=== PATIENT | male | born 1975 | race Caucasian/White ===

== ENCOUNTER 2020-06-25 11:19 | Inpatient (IN) | payer SELFPAY ==
[~2020-06-25 11:19] MED LIST: Amlodipine 10 MG TAB PO SCH
[2020-06-25 12:41] LABS: #Basophils 0.1 thou/uL (0.0-0.2); #Eosinphils 0.2 thou/uL (0.0-0.7); #Lymphocytes 1.2 thou/uL (1.20-3.40); #Monocytes 0.4 thou/uL (0.11-0.59); #Neutrophils 4.6 thou/uL (1.40-6.50); %Basophils 0.9 % (0.0-1.0); %Eosinophils 2.6 % (0.0-10.0); %Lymphocytes 18.1 % (21.0-51.0); %Monocytes 6.7 % (0.0-10.0); %Neutrophils 71.8 % (42.0-75.0); Mean Corpuscular HGB CONC 35.6 g/dL (32.0-36.0); Mean Corpuscular Hemoglobin 31.4 pg (27.0-31.0); Mean Corpuscular Volume 88.2 fL (78.0-98.0); Mean Platelet Volume 6.4 fL (7.4-10.4); Platelet Count 235 thou/uL (130-400); RBC Distribution Width 12.2 % (11.5-14.5); Red Blood Cell (RBC) Count 3.52 mill/uL (4.70-6.10); White Blood Cell (WBC) Count 6.4 thou/uL (4.8-10.8)
--- NOTE | 2020-06-25 12:47 | RAD ---
Exam: Chest one view HISTORY:Fall. Seizure. Comparison: 08/12/2015 FINDINGS: Cardiac silhouette: Normal Aorta: Unremarkable Pulmonary vessels: Normal Costophrenic angles: Clear LUNGS: No masses or consolidation. Pneumothorax: None Osseous abnormalities: None IMPRESSION: No acute cardiopulmonary process.
[2020-06-25 13:00] LABS: ALT (SGPT) 36 U/L (8-55); AST (SGOT) 30 U/L (5-34); Albumin 2.7 g/dL (3.5-5.0); Alkaline Phosphatase 198 U/L (40-110); Anion Gap 14 mmol/L (10-20); BUN (Urea Nitrogen) 31 mg/dL (8.9-20.6); Bilirubin, Total 0.6 mg/dL (0.2-1.2); CK (CPK) 32 U/L (30-200); Calc. Creatinine Clearance 0 mL/min (70-130); Calcium 8.2 mg/dL (7.8-10.44); Carbon Dioxide 26 mmol/L (22-29); Chloride 91 mmol/L (98-107); Globulin 3.6 g/dL (2.4-3.5); Protein, Total 6.3 g/dL (6.0-8.3); Sodium 126 mmol/L (136-145)
[2020-06-25 13:07] LABS: Glucose 680 mg/dL (70-105)
[2020-06-25] MEDS ORDERED: Insulin Regular 300 UNITS/3 ML VIAL ONE (13:16)
[2020-06-25 13:17] LABS: Acetaminophen Less than 6.0 mcg/mL (10.0-30.0); Alcohol Less than 10 mg/dL (Less than 10); Salicylate Less than 8.0 mg/dL (15.0-30.0)
--- NOTE | 2020-06-25 13:33 | CT ---
Exam: Head CT without contrast HISTORY: Head injury. Patient is on blood thinners. COMPARISON: 08/12/2015 FINDINGS: Hemorrhage: Linear hyperdensities along the right insular cortex may represent small petechial hemorr hages versus there is a calcification. These findings were not present on the examinations from 2016. Brain parenchyma: Cortical marino-white matter differentiation is preserved. No mass effect or midline shift. Basilar cisterns are patent. Ventricular system: Asymmetric dilatation of the right temporal horn with respect to the contralatera l side. Calvarium: Postoperative changes in the right calvarium. Sinuses and mastoid air cells: Adequate aeration. IMPRESSION: 1. Linear densities in the right insular cortex which may represent petechial hemorrhages versus area s of calcification. Short-term follow-up CT in 6 hours is recommended. 2. Asymmetric prominence of the right temporal horn of the ventricular system, uncertain significance . Results study discussed with Daxa Yao 06/25/2020 at 1:30 PM Code CR
[2020-06-25] MEDS ORDERED: Metoclopramide HCl 10 MG TAB ONE (13:43)
[2020-06-25] MEDS ORDERED: Acetaminophen 500 MG TAB ONE (13:43)
[2020-06-25 13:56] LABS: Bacteria/HPF None Seen HPF (None Seen); Bilirubin Negative (Negative); Blood, Urine Trace (Negative); Clarity Clear (Clear); Glucose, Urine (Dipstick) Greater than 1000 mg/dL (Negative); Ketone, Urine Negative (Negative); Leukocyte Negative Leu/uL (Negative); Nitrite Negative (Negative); Protein, Urine (Dipstick) 200 mg/dL (Neg-Trace); RBC/HPF 0-3 HPF (0-3); Specific Gravity, Urine 1.026 (1.002-1.036); Squamous Epithelial 0-3 HPF (0-3); Urobilinogen Normal mg/dL (Less than 2); WBC/HPF 0-3 HPF (0-3)
[2020-06-25 14:04] LABS: Amphetamine Not Detected (NotDetected); Barbiturates Screen Not Detected (NotDetected); Benzodiazepine Screen Not Detected (NotDetected); Cocaine Metabolite Screen Not Detected (NotDetected); Medtox Control Line Valid? VALID (VALID); Medtox Reader # READER 4; Methadone Not Detected (NotDetected); Methamphetamine Not Detected (NotDetected); Opiate Screen Not Detected (NotDetected); Oxycodone Screen Not Detected (NotDetected); Phencyclidine (PCP) Not Detected (NotDetected); THC/Cannabinoid Screen Not Detected (NotDetected); Tricyclic Screen Not Detected (NotDetected)
--- NOTE | 2020-06-25 20:06 | CT ---
CT OF BRAIN PERFORMED WITHOUT CONTRAST ENHANCEMENT: 06/25/20 HISTORY: Head injury. Patient on blood thinners. Previous CT showed some questionable petechial hemorrhage in the right insular cortex. COMPARISON: Earlier exam of the same day. Ventricular and cisternal system is within normal limits. The changes in the insular cortex along the right Sylvian fissure are similar to the previous exam. There is also some asymmetry to the right te mporal horn slightly larger than the left and what appears to be more prominent choroid plexus on the right side. This is also a stable finding. The mastoid air cells and visualized sinuses are clear. IMPRESSION: Stable areas of increased attenuation in the right insular cortex along the right Sylvian fissure. Th is could represent fine petechial hemorrhage or calcification, still indeterminate. Slight dilatation of the right temporal horn and what appears to be more prominent choroid plexus on the right is agai n demonstrated. It is possible that this represents some blood products. Right sided craniotomy monk ges are noted. Changes could be the sequela of the previous surgery. It would probably be helpful to obtain an additional follow-up examination. An MRI might also be a consideration which may be helpful in better assessment. POS: AALIYAH
[2020-06-25] MEDS ORDERED: Senokot S 8.6-50 MG TAB PO PRN (21:25)
[2020-06-25] MEDS ORDERED: Dextrose 50% Abboject 50 ML SYRINGE SLOW IVP PRN (21:33)
[2020-06-25] MEDS ORDERED: Dextrose 5% in Water 1,000 ML IV PRN (21:33)
[2020-06-25] MEDS ORDERED: Amlodipine 5 MG TAB ONE (21:37)
--- NOTE | 2020-06-25 21:39 | PDOC.HHP ---
Hospitalist HPI - History of Present Illness Headache, falls History of Present Illness: 45-year-old gentleman with a history of seizure disorder, recent diagnosis of subarachnoid hemorrhage status post craniotomy done at [facility] presents to the emergency department with multiple complaints including headaches, and multiple falls over the last couple of days. Patient reports history of hypertension. He was prescribed amlodipine and Coreg for hypertension, Keppra for seizure disorder and Novolin 70/30 for diabetes on discharge from his last admission in March 2020. Patient has not been able to fill them stating he does not have medical insurance and could not afford them. Patient's blood sugar was up to 600 in the ED. blood sugar improved to 300s after a dose of subcutaneous insulin. Multiple CT head done in the ED report increased attenuation in the right insular cortex which could be streaks of hemorrhage or calcification or sequela from his craniotomy. Follow-up MRI of the brain is recommended. Neurosurgery was contacted in the ED recommended hospitalization for follow-up MRI and for monitoring. His systolic blood pressure was fluctuating in the ED from 140-180. He denied any focal weakness or visual changes or problems with speech or swallow. He denied hitting his head during the falls he had 2 days ago. He stated his last seizure episode was more than a week ago. Hospitalist ROS - Review of Systems Other: Except as documented, all other systems reviewed and negative. Hospitalist History - Past Medical History Cardiac: reports: HTN [employer]: reports: CVA, Other (Subarachnoid hemorrhage) Endocrine: reports: Diabetes Other Medical History: Hepatitis C Migraine. - Past Surgical History Other Surgical History: Craniotomy - Family History Family History: reports: diabetes mellitus - Social History Smoking Status: Former smoker Alcohol: reports: None Drugs: reports: none, Other (Former drug user) - Exam General Appearance: NAD, awake alert Eye: PERRL, anicteric sclera ENT: normocephalic atraumatic, no oropharyngeal lesions Neck: supple, symmetric, no JVD Heart: RRR, normal peripheral pulses Respiratory: CTAB, no wheezes, no rales Gastrointestinal: soft, non-tender, non-distended Extremities: no cyanosis, no edema Skin: normal turgor Neurological: cranial nerve grossly intact, no focal deficits Musculoskeletal: normal tone, normal strength Psychiatric: normal affect, normal behavior, A&O x 3 Hospitalist Results - Labs Result Diagrams: 06/25/20 12:26 06/25/20 12:26 Lab results: WBC 6.4 thou/uL (4.8-10.8) 06/25/20 12:26 Hgb 11.0 g/dL (14.0-18.0) L 06/25/20 12:26 Hct 31.0 % (42.0-52.0) L 06/25/20 12:26 MCV 88.2 fL (78.0-98.0) 06/25/20 12:26 Plt Count 235 thou/uL (130-400) 06/25/20 12:26 Neutrophils % 71.8 % (42.0-75.0) 06/25/20 12:26 Sodium 126 mmol/L (136-145) L 06/25/20 12:26 Potassium 5.0 mmol/L (3.5-5.1) 06/25/20 12:26 Chloride 91 mmol/L (98-107) L 06/25/20 12:26 Carbon Dioxide 26 mmol/L (22-29) 06/25/20 12:26 BUN 31 mg/dL (8.9-20.6) H 06/25/20 12:26 Creatinine 1.48 mg/dL (0.7-1.3) H 06/25/20 12:26 Glucose 680 mg/dL (70-105) H* 06/25/20 12:26 Calcium 8.2 mg/dL (7.8-10.44) 06/25/20 12:26 Total Bilirubin 0.6 mg/dL (0.2-1.2) 06/25/20 12:26 AST 30 U/L (5-34) 06/25/20 12:26 ALT 36 U/L (8-55) 06/25/20 12:26 Alkaline Phosphatase 198 U/L (40-110) H 06/25/20 12:26 Creatine Kinase 32 U/L (30-200) 06/25/20 12:26 Troponin I 0.027 ng/mL (< 0.028) 06/25/20 12:26 Serum Total Protein 6.3 g/dL (6.0-8.3) 06/25/20 12:26 Albumin 2.7 g/dL (3.5-5.0) L 06/25/20 12:26 Urine Ketones Negative mg/dL (Negative) 06/25/20 13:30 Urine Blood Trace (Negative) A 06/25/20 13:30 Urine Nitrite Negative (Negative) 06/25/20 13:30 Ur Leukocyte Esterase Negative Patrick/uL (Negative) 06/25/20 13:30 Urine RBC 0-3 HPF (0-3) 06/25/20 13:30 Urine WBC 0-3 HPF (0-3) 06/25/20 13:30 Ur Squamous Epith Cells 0-3 HPF (0-3) 06/25/20 13:30 Urine Bacteria None Seen HPF (None Seen) 06/25/20 13:30 Hospitalist H&P A/P - Problem (1) Malignant hypertension Code(s): I10 - ESSENTIAL (PRIMARY) HYPERTENSION Status: Acute (2) Intracranial hemorrhage Code(s): I62.9 - NONTRAUMATIC INTRACRANIAL HEMORRHAGE, UNSPECIFIED Status: Acute (3) Controlled type 2 diabetes mellitus with hyperglycemia Code(s): E11.65 - TYPE 2 DIABETES MELLITUS WITH HYPERGLYCEMIA Status: Acute (4) Seizure disorder Code(s): G40.909 - EPILEPSY, UNSP, NOT INTRACTABLE, WITHOUT STATUS EPILEPTICUS Status: Acute (5) History of subarachnoid hemorrhage Code(s): Z86.79 - PERSONAL HISTORY OF OTHER DISEASES OF THE CIRCULATORY SYSTEM Status: Acute (6) Multiple falls Code(s): R29.6 - REPEATED FALLS Status: Acute - Plan Plan: Admit to stroke unit. Neurochecks every 4 hours We will resume amlodipine tonight to control his blood pressure. Target systolic blood pressure of less than 140 and diastolic less than 110. MRI of the brain without contrast ordered to be done in a.m.. Manage blood sugar with home insulin regimen-Novolin 70/30 and insulin sliding scale. Start Keppra 500 mg twice daily. Consult to neurosurgery.
[2020-06-25] MEDS ORDERED: levETIRAcetam 500 MG TAB PO SCH (22:00)
[2020-06-26 00:35] VITALS: BMI 25.4
[2020-06-26] MEDS: Sodium Chloride 0.9% 1,000 ML IV SCH ×2 (01:13→12:51)
[2020-06-26] MEDS: Insulin Regular 300 UNITS/3 ML VIAL SC PRN ×5 (01:56→17:28)
[2020-06-26] MEDS: Acetaminophen 325 MG TAB PO PRN ×2 (01:57→09:43)
[2020-06-26] MEDS ORDERED: hydrALAZINE 20 MG/ML VIAL SLOW IVP PRN (05:17)
[2020-06-26] MEDS ORDERED: Amlodipine 10 MG TAB PO SCH (05:19)
[2020-06-26 05:50] LABS: SARS-CoV-2 MS2 Positive; SARS-CoV-2 N Gene Negative; SARS-CoV-2 S Gene Negative; SARS-CoV-2 by NAA Not Detected (NotDetected); SARS-CoV-2 orf1ab Negative
[2020-06-26 06:56] LABS: #Eosinphils 0.2 thou/uL (0.0-0.7); #Monocytes 0.5 thou/uL (0.11-0.59); #Neutrophils 4.1 thou/uL (1.40-6.50); %Basophils 0.6 % (0.0-1.0); %Eosinophils 3.5 % (0.0-10.0); %Lymphocytes 28.8 % (21.0-51.0); %Monocytes 7.4 % (0.0-10.0); %Neutrophils 59.8 % (42.0-75.0); Hemoglobin 10.2 g/dL (14.0-18.0); Mean Corpuscular Volume 86.1 fL (78.0-98.0); Platelet Count 262 thou/uL (130-400); RBC Distribution Width 12.1 % (11.5-14.5); Red Blood Cell (RBC) Count 3.29 mill/uL (4.70-6.10); White Blood Cell (WBC) Count 6.9 thou/uL (4.8-10.8)
[2020-06-26 07:06] LABS: Anion Gap 11 mmol/L (10-20); BUN (Urea Nitrogen) 27 mg/dL (8.9-20.6); Calc. Creatinine Clearance 97 mL/min (70-130); Calcium 8.1 mg/dL (7.8-10.44); Carbon Dioxide 26 mmol/L (22-29); Chloride 98 mmol/L (98-107); Glucose 319 mg/dL (70-105); Potassium 3.9 mmol/L (3.5-5.1); Sodium 131 mmol/L (136-145)
[2020-06-26] MEDS ORDERED: FLU VACC QS2020-21(6MOS UP)/PF 60 MCG/0.5 ML SYRINGE IM ONE (09:00)
[2020-06-26] MEDS: Metoprolol Tartrate 25 MG TAB PO SCH ×2 (09:43→21:33)
[2020-06-26] MEDS: levETIRAcetam 500 MG TAB PO SCH ×2 (09:43→21:33)
[2020-06-26] MEDS: Famotidine/PF 20 mg/2ml Vial SLOW IVP SCH ×2 (09:43→21:33)
--- NOTE | 2020-06-26 10:16 | CON ---
DATE OF CONSULTATION: 06/26/2020 HISTORY OF PRESENT ILLNESS: The patient is a 45-year-old male with a past medical history of diabetes, hypertension, prior traumatic subdural hematoma requiring craniotomy with evacuation in February of 2020, seizure disorder, who presents to the [place] last night for complaint of worsening headaches, frequent falls, as well as increased seizure activity over the last few days. The patient reports that he developed some increased instability and falling as well as some claudicatory leg pain approximately one year ago. He reports he has suffered multiple falls throughout the year. In February of 2020, he suffered a fall versus seizure event and was reportedly brought to [facility], where he was evaluated for acute subdural hematoma, which required evacuation with a right-sided craniotomy. The patient reports after this event, he was discharged home. Approximately a month later, he was readmitted with what sounds to be a traumatic subarachnoid hemorrhage at that time. He has followed up with his neurosurgeon in [place] to have his nory removed, but not had any additional followup visits. Additionally, he has not had any of his medications filled since March because he reports he cannot afford them. This includes he has not been taking his seizure medication, Keppra. The patient came to the ER last night for complaints of some increased headaches, seizure-like activity as well as increased falling. He was evaluated with a noncontrast CT head, which shows some hyperdensities along the right insular cortex, which could represent petechial hemorrhage versus calcification versus sequelae from his previous craniotomy. This was stable on a followup 6-hour CT. However, MRI was recommended for additional characterization. I visited the patient at the bedside. He reports his headaches have improved, but his main complaint at this time is some cramping sensation in both of his legs as well as some weakness in his legs. PAST MEDICAL HISTORY: Hypertension, diabetes, seizure, prior subdural hematoma requiring evacuation with a right-sided craniotomy, hepatitis C. PAST SURGICAL HISTORY: Right-sided craniotomy for subdural hematoma evacuation. FAMILY HISTORY: Noncontributory. SOCIAL HISTORY: The patient is currently homeless at this time. He reports he is a former drug user. REVIEW OF SYSTEMS: Per HPI. PHYSICAL EXAMINATION: VITAL SIGNS: Stable, afebrile. HEENT: Head, normocephalic and atraumatic. There is a scar formation along the right scalp consistent with right-sided craniotomy. Eyes, PERRLA. Extraocular movements intact. ENT; pink, intact, and moist. He has normal voice. NECK: Nontender. Free active range of motion. No meningismus or nuchal rigidity. CARDIAC: Regular rate and rhythm. PULMONARY: Symmetric chest expansion. No evidence of dyspnea. MUSCULOSKELETAL: He has free active range of motion of the upper extremities. No focal motor weakness. No reflex asymmetry. In the lower extremities, he has some diffuse weakness in the legs, particularly proximally. He has difficulty lifting them for very long up the bed. 3+/4 throughout hyperreflexive. NEUROLOGIC: A and O x4. Some weakness in the lower extremities on my exam in the bed as noted above. ASSESSMENT AND PLAN: This is a complicated case and the patient is a very poor historian with history of right-sided craniotomy for acute subdural hematoma and possible traumatic subarachnoid hemorrhage approximately a month later. He has been noncompliant with his medications. CT head shows some hyperdensity along the right insular cortex, which could represent acute petechial hemorrhage versus calcification versus sequelae from prior craniotomy. We will get MRI of the brain to further characterize. Also, the patient has had significant instability and some claudicatory leg pain over the last year, this is likely contributing to his recent falls, and we will evaluate further with MRI of the cervical and lumbar spine. I have discussed this plan with Dr. Rodgers, who is in agreement. We will follow along after his imaging. MRI imaging will require anesthesia due to the patient's severe claustrophobia. Job ID: [id number]
[2020-06-26] MEDS: HumuLIN 70/30 (300 UNITS/3 ML VIAL) SC SCH ×3 (10:44→17:05)
--- NOTE | 2020-06-26 13:20 | PDOC.HOSPP ---
- Subjective Encounter Date: 06/26/20 Encounter Time: 11:00 Subjective: awake, follows verbal stimuli, is moving all extremities no seizures, has no trouble swallowing - Objective Vital Signs & Weight: Vital Signs (12 hours) Temp Pulse Pulse Pulse Resp BP BP 06/26/20 11:32 98.1 F 63 19 06/26/20 11:05 63 70 124/76 141/75 H 06/26/20 07:45 97.8 F 79 16 06/26/20 04:08 98.7 F 79 15 BP Pulse Ox 06/26/20 11:32 124/76 100 06/26/20 11:05 06/26/20 07:45 142/76 H 97 06/26/20 04:08 151/85 H 97 Weight Weight 188 lb I&O: 06/25/20 06/26/20 06/27/20 06:59 06:59 06:59 Intake Total 1557 112 Output Total 1200 450 Balance 357 -338 Result Diagrams: 06/26/20 06:33 06/26/20 06:33 Additional Labs: Accuchecks 06/26/20 06/25/20 05:53 19:43 POC Glucose 321 H 369 H Hospitalist ROS - Medication Medications: Active Medications Generic Name Dose Route Start Last Admin Trade Name Freq PRN Reason Stop Dose Admin Acetaminophen 650 mg 06/25/20 21:25 06/26/20 09:43 Acetaminophen 325 Mg Tab PO 650 mg Q4H PRN Administration Headache/Fever/Mild Pain (1-3) Famotidine 20 mg 06/26/20 09:00 06/26/20 09:43 Famotidine/Pf 20 Mg/2ml Vial SLOW IVP 20 mg Q12HR SOFYA Administration Sodium Chloride 1,000 mls @ 75 mls/hr 06/25/20 21:30 06/26/20 12:51 Normal Saline 0.9% IV 1,000 mls .[id number] SOFYA Administration Insulin Human Isoph/Insulin Regular 30 units 06/26/20 07:30 06/26/20 10:45 Humulin 70/30 (300 Units/3 Ml Vial) SC 30 unit AC SOFYA Administration Insulin Human Regular 0 units 06/25/20 21:33 06/26/20 12:50 Insulin Regular 300 Units/3 Ml Vial SC 6 unit .MODERATE SLIDING SC PRN Administration Moderate Correctional Scale Levetiracetam 500 mg 06/26/20 09:00 06/26/20 09:43 Levetiracetam 500 Mg Tab PO 500 mg BID SOFYA Administration Metoprolol Tartrate 25 mg 06/26/20 09:00 06/26/20 09:43 Metoprolol Tartrate 25 Mg Tab PO 25 mg BID SOFYA Administration - Exam General Appearance: awake alert Eye: PERRL, anicteric sclera ENT: no oropharyngeal lesions, moist mucosa Neck: supple, no JVD Heart: RRR, no murmur Respiratory: no wheezes, no rales Gastrointestinal: soft, non-tender, non-distended, normal bowel sounds Extremities: no cyanosis, no edema Neurological: cranial nerve grossly intact, no focal deficits Hosp A/P (1) Intracranial hemorrhage Code(s): I62.9 - NONTRAUMATIC INTRACRANIAL HEMORRHAGE, UNSPECIFIED Status: Acute (2) DM type 2 (diabetes mellitus, type 2) Status: Chronic Qualifiers: Diabetes mellitus senior care insulin use: without senior care use Diabetes mellitus complication status: with hyperglycemia Qualified Code(s): E11.65 - Type 2 diabetes mellitus with hyperglycemia (3) Hypertension, uncontrolled Code(s): I10 - ESSENTIAL (PRIMARY) HYPERTENSION Status: Acute (4) History of subarachnoid hemorrhage Code(s): Z86.79 - PERSONAL HISTORY OF OTHER DISEASES OF THE CIRCULATORY SYSTEM Status: Chronic (5) Multiple falls Code(s): R29.6 - REPEATED FALLS Status: Acute (6) Seizure disorder Code(s): G40.909 - EPILEPSY, UNSP, NOT INTRACTABLE, WITHOUT STATUS EPILEPTICUS Status: Chronic - Plan h/o sub arachnoid bleed/craniectomy in feb 2020 at [facility] in [place], subsequently had another cva like episode in march per patient was abusing meth for around 6 yrs and quit a year back per patient was not using any meds for dm or htn due to financial reasons has petechial spots/calcifications in the right insular cortex, await nsx opinion has b/l lower extremity strength of 3-4/5 with patient lifting his legs to about 30 degrees above bed (says he feels weak to lift beyond that) left is more weaker than right? continue current meds including 70/30 insulin, keppra, norvasc, lopressor, will titrate in am if needed for MRI with anesthesia due to severe claustrophobia. PT/OT eval, may need rehab or swing bed
[2020-06-26] MEDS: Ondansetron PF 4 MG/2 ML Vial IVP PRN (14:33)
[2020-06-26] MEDS ORDERED: HumuLIN 70/30 (300 UNITS/3 ML VIAL) SC SCH (17:15)
[2020-06-26] MEDS: Amlodipine 10 MG TAB PO SCH (21:33)
[2020-06-27] MEDS: Acetaminophen 325 MG TAB PO PRN ×2 (00:59→09:02)
[2020-06-27] MEDS: Sodium Chloride 0.9% 1,000 ML IV SCH ×3 (04:35→20:36)
[2020-06-27] MEDS: Insulin Regular 300 UNITS/3 ML VIAL SC PRN ×3 (06:05→17:37)
[2020-06-27] MEDS ORDERED: Sodium Chloride 0.9% 10 ML ONE (08:50)
[2020-06-27] MEDS: Metoprolol Tartrate 25 MG TAB PO SCH ×2 (09:02→20:37)
[2020-06-27] MEDS: Ondansetron PF 4 MG/2 ML Vial IVP PRN (09:03)
[2020-06-27] MEDS: Famotidine/PF 20 mg/2ml Vial SLOW IVP SCH ×2 (09:03→20:37)
[2020-06-27] MEDS: HumuLIN 70/30 (300 UNITS/3 ML VIAL) SC SCH ×2 (09:03→20:40)
[2020-06-27] MEDS: levETIRAcetam 500 MG TAB PO SCH ×2 (09:10→20:37)
--- NOTE | 2020-06-27 10:44 | MRI ---
Exam: Brain MRI without contrast HISTORY: Persistent hyperdensities noted on recent CT. Evaluate for intracranial hemorrhage. COMPARISON: None Correlation: Head CT 06/25/2018 FINDINGS: Calvarial marrow signal intensity: Appropriate T1 signal Gradient echo sequence: There is hypointensity involving the right temporal lobe as well as the right insular cortex. These hypodensities likely represent hemosiderin from previous insult. There is delayed blooming suggesting possible small cavernous hemangiomas. Brain parenchyma: Multiple foci of encephalomalacia and gliosis involving the right temporal lobe. Re mainder the cerebrum demonstrates preservation of cortical marino-white white matter differentiation. Cortical marino-white matter differentiation: Preserved with exception of the right temporal lobe. Restricted diffusion: Central arterial flow voids are maintained. Absent restricted diffusion White matter signal intensities:Minimal scattered T2 and FLAIR white matter hyperintensities in the r ight temporal lobe likely due to areas of gliosis. Sinuses: Adequate aeration of the paranasal sinuses and mastoid air cells. IMPRESSION: 1. Multifocal encephalomalacia and gliosis right temporal lobe. 2. 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 No acute intraparenchymal hemorrhage.
[2020-06-27] MEDS ORDERED: PROPOFOL 200 MG/20 ML VIAL ONE (11:31)
[2020-06-27] MEDS ORDERED: ePHEDrine 50 MG/ML VIAL ONE (11:31)
[2020-06-27] MEDS ORDERED: Lidocaine 1% PF 5 ML VIAL ONE (11:31)
[2020-06-27] MEDS ORDERED: Dexamethasone 20 MG/5 ML VIAL ONE (11:31)
[2020-06-27] MEDS ORDERED: Ondansetron PF 4 MG/2 ML Vial ONE (11:31)
--- NOTE | 2020-06-27 11:32 | MRI ---
MRI CERVICAL SPINE WITHOUT CONTRAST: INDICATION: Headaches. Frequent falling. FINDINGS: The cervical vertebrae maintain normal height and alignment. The disk spaces are normally maintained . Vertebral body signal is normal. No significant disk bulge or disk protrusion seen at any of the cervical levels. Very mild spondylos is is seen posteriorly at C5-6. Anterior subarachnoid space is preserved throughout the cervical can al. There is no evidence of central canal or foraminal stenosis. Review of the cervical spinal cord shows a small focus of high T2 signal within the central portion o f the cord at the C7-T1 level. This is only seen on the axial T2 sequence. It may represent a tiny focal syrinx or hydromyelia, although it is indeterminate on this single axial sequence. Recommend p atient return for post contrast MRI of cervical spine to rule out an intrinsic cord lesion at this si te. IMPRESSION: 1. A small focus of high T2 signal in the central cord seen at the C7-T1 disk level, only appreciate d in the T2 axial sequence. Recommend patient have post contrast MRI of cervical spine to rule out a n intrinsic cord lesion. 2. MRI cervical spine otherwise unremarkable with no significant disk bulge, disk protrusion, or spo ndylosis identified. POS: JASIEL
--- NOTE | 2020-06-27 12:26 | MRI ---
MRI LUMBAR SPINE WITHOUT CONTRAST: Date: 06/27/2020 INDICATION: Claudication. Back pain. Frequent falls. FINDINGS: There is mild wedging of the T12 vertebra. Anterior osteophytes at T11-T12 and T12-L1. There is no ed donovan within this vertebral body. The lumbar vertebra maintain normal height and alignment and the lumbar disc spaces are normally main tained. Lumbar vertebral bodies exhibit normal signal. T11-T12: There is a broad based disc bulge which abuts the conus and effaces the anterior subarachnoi d space. No foraminal stenosis. T12-L1: No significant disc bulge. No central canal or foraminal stenosis. No significant disc bulge at L1-2, L2-3, or L3-4 levels. Mild facet hypertrophy at these levels; goddard hair, no central canal or foraminal stenosis. L4-5: Mild disc bulge abuts the thecal sac. Mild facet hypertrophy. No central canal or foraminal st enosis. L5-S1> No evidence of disc bulge. Mild facet hypertrophy. No central canal or foraminal stenosis. IMPRESSION: 1. Mild anterior wedging at T12 with anterior osteophytes. Broad based bulge at T11-T12 abuts and mi ldly compresses the conus. 2. No significant disc bulge or protrusion at any of the lumbar levels. There is mild facet hypertro phy throughout; however, no central canal or foraminal stenosis. POS: AGW
--- NOTE | 2020-06-27 14:14 | PDOC.HOSPP ---
- Subjective Encounter Date: 06/27/20 Encounter Time: 11:00 Subjective: had all his mri this am with anesthesia help is moving all extremities, has amb around 400ft no seizures, feels good, no headache or specific weakness now - Objective Vital Signs & Weight: Vital Signs (12 hours) Temp Pulse Resp BP BP Pulse Ox 06/27/20 11:43 96.8 F L 73 20 130/78 99 06/27/20 11:00 97.3 F L 72 20 131/71 100 06/27/20 08:02 97.8 F 77 20 140/77 100 06/27/20 08:00 99 06/27/20 04:00 97.8 F 73 14 124/70 97 Weight Admit Weight 188 lb Weight 188 lb I&O: 06/26/20 06/27/20 06/28/20 06:59 06:59 06:59 Intake Total 1557 1357 Output Total 1200 2100 Balance 357 -563 Result Diagrams: 06/26/20 06:33 06/26/20 06:33 Additional Labs: Accuchecks 06/27/20 06/27/20 06/26/20 12:04 05:30 21:42 POC Glucose 197 H 214 H 134 H 06/26/20 06/26/20 06/26/20 16:51 10:48 03:18 POC Glucose 155 H 291 H 507 H 06/26/20 06/26/20 01:16 01:14 POC Glucose 529 H 508 H Hospitalist ROS - Medication Medications: Active Medications Generic Name Dose Route Start Last Admin Trade Name Freq PRN Reason Stop Dose Admin Acetaminophen 650 mg 06/25/20 21:25 06/27/20 09:02 Acetaminophen 325 Mg Tab PO 650 mg Q4H PRN Administration Headache/Fever/Mild Pain (1-3) Amlodipine Besylate 10 mg 06/26/20 21:00 06/26/20 21:33 Amlodipine 10 Mg Tab PO 10 mg 2100 SOFYA Administration Famotidine 20 mg 06/26/20 09:00 06/27/20 09:03 Famotidine/Pf 20 Mg/2ml Vial SLOW IVP 20 mg Q12HR SOFYA Administration Sodium Chloride 1,000 mls @ 75 mls/hr 06/25/20 21:30 06/27/20 04:35 Normal Saline 0.9% IV 1,000 mls .[id number] SOFYA Administration Insulin Human Isoph/Insulin Regular 15 units 06/27/20 09:00 06/27/20 09:03 Humulin 70/30 (300 Units/3 Ml Vial) SC Not Given BID SOFYA Insulin Human Regular 0 units 06/25/20 21:33 06/27/20 12:42 Insulin Regular 300 Units/3 Ml Vial SC 2 unit .MODERATE SLIDING SC PRN Administration Moderate Correctional Scale Levetiracetam 500 mg 06/26/20 09:00 06/27/20 09:10 Levetiracetam 500 Mg Tab PO 500 mg BID SOFYA Administration Metoprolol Tartrate 25 mg 06/26/20 09:00 06/27/20 09:02 Metoprolol Tartrate 25 Mg Tab PO 25 mg BID SOFYA Administration Ondansetron HCl 4 mg 06/25/20 21:25 06/27/20 09:03 Ondansetron Pf 4 Mg/2 Ml Vial IVP 4 mg Q6H PRN Administration Nausea/Vomiting - Exam General Appearance: awake alert Eye: PERRL, anicteric sclera ENT: no oropharyngeal lesions, moist mucosa Neck: supple, no JVD Heart: RRR, no murmur Respiratory: no wheezes, no rales Gastrointestinal: soft, non-tender, non-distended, normal bowel sounds Extremities: no cyanosis, no edema Neurological: cranial nerve grossly intact, no focal deficits Psychiatric: normal affect, A&O x 3 Hosp A/P (1) Intracranial hemorrhage Code(s): I62.9 - NONTRAUMATIC INTRACRANIAL HEMORRHAGE, UNSPECIFIED Status: Ruled-out (2) DM type 2 (diabetes mellitus, type 2) Status: Chronic Qualifiers: Diabetes mellitus senior care insulin use: without ecommerce marketing manager use Diabetes mellitus complication status: with hyperglycemia Qualified Code(s): E11.65 - Type 2 diabetes mellitus with hyperglycemia (3) Hypertension, uncontrolled Code(s): I10 - ESSENTIAL (PRIMARY) HYPERTENSION Status: Acute (4) History of subarachnoid hemorrhage Code(s): Z86.79 - PERSONAL HISTORY OF OTHER DISEASES OF THE CIRCULATORY SYSTEM Status: Chronic (5) Multiple falls Code(s): R29.6 - REPEATED FALLS Status: Acute (6) Seizure disorder Code(s): G40.909 - EPILEPSY, UNSP, NOT INTRACTABLE, WITHOUT STATUS EPILEPTICUS Status: Chronic - Plan h/o sub arachnoid bleed/craniectomy in feb 2020 at [facility] in [place], subsequently had another cva like episode in march per patient was abusing meth for around 6 yrs and quit a year back per patient was not using any meds for dm or htn due to financial reasons has petechial spots/calcifications in the right insular cortex, MRI brain does not show bleed or ac cva, await nsx opinion has ambulated nearly [address] continue current meds including 70/30 insulin, keppra, norvasc, lopressor, will titrate in am if needed PT/OT eval, may need rehab or swing bed dc plan per nsx advice
--- NOTE | 2020-06-27 15:11 | CON ---
NEUROLOGY CONSULTATION DATE OF CONSULTATION: 06/27/2020 REASON FOR CONSULTATION: Headaches, falls/seizures. HISTORY OF PRESENT ILLNESS: Mr. Destin Noyola is a 45-year-old male with history significant for recent diagnosis of subarachnoid hemorrhage, status post craniotomy in March 2020 and was also diagnosed with seizure disorder, presented with episodes of altered awareness with a concern about seizures. Per patient, he was diagnosed with seizures when he was in the hospital in March 2020 and was started on Keppra, but on discharge, he was unable to afford the prescription and keeps on having seizures. He had 9 seizures over the last week. The seizures were characterized by rising epigastric sensation with a strange feeling in the stomach that builds up and travels upwards towards the head and then he has slurred speech and altered awareness, which may last for few minutes, and it takes him several minutes to get back to the baseline. He denies any jerking, tongue bite, or urinary incontinence. He does admit that he had tongue bite once a few months ago. He had a head CT done, which showed increased attenuation in the right insular cortex, and MRI of the brain was recommended. He also has history of labile hypertension. The patient denies any focal weakness, focal paresthesias, nausea, vomiting, chest pain, abdominal pain, blurred vision, double vision, or loss of consciousness, but does admit of having partial seizures. REVIEW OF SYSTEMS: All systems reviewed and were negative except the pertinent positives and negatives mentioned in the HPI. PAST MEDICAL HISTORY: Hypertension, CVA, seizures, diabetes, hepatitis C, and migraines. PAST SURGICAL HISTORY: Craniotomy. FAMILY HISTORY: Diabetes mellitus. SOCIAL HISTORY: He is a former smoker. Former drug user. Denies alcohol. ALLERGIES: NKDA Vital Signs & Weight: Vital Signs (12 hours) Temp Pulse Resp BP BP Pulse Ox 06/27/20 11:43 96.8 F L 73 20 130/78 99 06/27/20 11:00 97.3 F L 72 20 131/71 100 06/27/20 08:02 97.8 F 77 20 140/77 100 06/27/20 08:00 99 06/27/20 04:00 97.8 F 73 14 124/70 97 Weight Admit Weight 188 lb Weight 188 lb I&O: 01/10/21 01/11/21 01/12/21 06:59 06:59 06:59 Intake Total 1557 1357 Output Total 1200 2100 Balance 357 -743 Additional Labs: Accuchecks 06/27/20 06/27/20 06/26/20 12:04 05:30 21:42 POC Glucose 197 H 214 H 134 H 06/26/20 06/26/20 06/26/20 16:51 10:48 03:18 POC Glucose 155 H 291 H 507 H 06/26/20 06/26/20 01:16 01:14 POC Glucose 529 H 508 H Active Medications Generic Name Dose Route Start Last Admin Trade Name Freq PRN Reason Stop Dose Admin Acetaminophen 650 mg 06/25/20 21:25 06/27/20 09:02 Acetaminophen 325 Mg Tab PO 650 mg Q4H PRN Administration Headache/Fever/Mild Pain (1-3) Amlodipine Besylate 10 mg 06/26/20 21:00 06/26/20 21:33 Amlodipine 10 Mg Tab PO 10 mg 2100 SOFYA Administration Famotidine 20 mg 06/26/20 09:00 06/27/20 09:03 Famotidine/Pf 20 Mg/2ml Vial SLOW IVP 20 mg Q12HR SOFYA Administration Sodium Chloride 1,000 mls @ 75 mls/hr 06/25/20 21:30 06/27/20 04:35 Normal Saline 0.9% IV 1,000 mls .[id number] SOFYA Administration Insulin Human Isoph/Insulin Regular 15 units 06/27/20 09:00 06/27/20 09:03 Humulin 70/30 (300 Units/3 Ml Vial) SC Not Given BID SOFYA Insulin Human Regular 0 units 06/25/20 21:33 06/27/20 12:42 Insulin Regular 300 Units/3 Ml Vial SC 2 unit .MODERATE SLIDING SC PRN Administration Moderate Correctional Scale Levetiracetam 500 mg 06/26/20 09:00 06/27/20 09:10 Levetiracetam 500 Mg Tab PO 500 mg BID SOFYA Administration Metoprolol Tartrate 25 mg 06/26/20 09:00 06/27/20 09:02 Metoprolol Tartrate 25 Mg Tab PO 25 mg BID SOFYA Administration Ondansetron HCl 4 mg 06/25/20 21:25 06/27/20 09:03 Ondansetron Pf 4 Mg/2 Ml Vial IVP 4 mg Q6H PRN Administration Nausea/Vomiting PHYSICAL EXAMINATION: General Appearance: NAD, awake alert Eye: PERRL, anicteric sclera ENT: normocephalic atraumatic, no oropharyngeal lesions Neck: supple, symmetric, no JVD Heart: RRR, normal peripheral pulses Respiratory: CTAB, no wheezes, no rales Gastrointestinal: soft, non-tender, non-distended Extremities: no cyanosis, no edema Skin: normal turgor Neurological: Mental status, the patient is alert and oriented to person, place, and time. Recent and remote memory intact. Fund of knowledge is appropriate. Speech is clear. Cranial nerves 2 through 12 intact. Motor; muscle tone and bulk are normal. Strength 5/5 bilaterally. Sensory intact. Cerebellar, finger-nose testing intact. Gait deferred due to the patient's safety reason. DATA REVIEWED: I reviewed the labs, which showed hemoglobin of 11 and hematocrit of 31 and also hyponatremia with a sodium of 126 and acute kidney injury with BUN of 31 and creatinine of 1.48, and he also has hyperglycemia. WBC 6.4 thou/uL (4.8-10.8) 06/25/20 12:26 Hgb 11.0 g/dL (14.0-18.0) L 06/25/20 12:26 Hct 31.0 % (42.0-52.0) L 06/25/20 12:26 MCV 88.2 fL (78.0-98.0) 06/25/20 12:26 Plt Count 235 thou/uL (130-400) 06/25/20 12:26 Neutrophils % 71.8 % (42.0-75.0) 06/25/20 12:26 Sodium 126 mmol/L (136-145) L 06/25/20 12:26 Potassium 5.0 mmol/L (3.5-5.1) 06/25/20 12:26 Chloride 91 mmol/L (98-107) L 06/25/20 12:26 Carbon Dioxide 26 mmol/L (22-29) 06/25/20 12:26 BUN 31 mg/dL (8.9-20.6) H 06/25/20 12:26 Creatinine 1.48 mg/dL (0.7-1.3) H 06/25/20 12:26 Glucose 680 mg/dL (70-105) H* 06/25/20 12:26 Calcium 8.2 mg/dL (7.8-10.44) 06/25/20 12:26 Total Bilirubin 0.6 mg/dL (0.2-1.2) 06/25/20 12:26 AST 30 U/L (5-34) 06/25/20 12:26 ALT 36 U/L (8-55) 06/25/20 12:26 Alkaline Phosphatase 198 U/L (40-110) H 06/25/20 12:26 Creatine Kinase 32 U/L (30-200) 06/25/20 12:26 Troponin I 0.027 ng/mL (< 0.028) 06/25/20 12:26 Serum Total Protein 6.3 g/dL (6.0-8.3) 06/25/20 12:26 Albumin 2.7 g/dL (3.5-5.0) L 06/25/20 12:26 Urine Ketones Negative mg/dL (Negative) 06/25/20 13:30 Urine Blood Trace (Negative) A 06/25/20 13:30 Urine Nitrite Negative (Negative) 06/25/20 13:30 Ur Leukocyte Esterase Negative Patrick/uL (Negative) 06/25/20 13:30 Urine RBC 0-3 HPF (0-3) 06/25/20 13:30 Urine WBC 0-3 HPF (0-3) 06/25/20 13:30 Ur Squamous Epith Cells 0-3 HPF (0-3) 06/25/20 13:30 Urine Bacteria None Seen HPF (None Seen) 06/25/20 13:30 ASSESSMENT AND PLAN: (1) Malignant hypertension Code(s): I10 - ESSENTIAL (PRIMARY) HYPERTENSION Status: Acute (2) Intracranial hemorrhage Code(s): I62.9 - NONTRAUMATIC INTRACRANIAL HEMORRHAGE, UNSPECIFIED Status: Acute (3) Controlled type 2 diabetes mellitus with hyperglycemia Code(s): E11.65 - TYPE 2 DIABETES MELLITUS WITH HYPERGLYCEMIA Status: Acute (4) Seizure disorder Code(s): G40.909 - EPILEPSY, UNSP, NOT INTRACTABLE, WITHOUT STATUS EPILEPTICUS Status: Acute (5) History of subarachnoid hemorrhage Code(s): Z86.79 - PERSONAL HISTORY OF OTHER DISEASES OF THE CIRCULATORY SYSTEM Status: Acute (6) Multiple falls Code(s): R29.6 - REPEATED FALLS Status: Acute Mr. Destin Noyola is a 45-year-old male, who was consulted for headache, seizure disorder, and multiple falls. The patient has been noncompliant with the medications, resulting in seizures, and headache is most likely secondary to malignant hypertension. MRI of the brain reviewed, which showed multifocal encephalomalacia and gliosis of the right temporal lobe with hypodensity in the axial gradient echo sequence suggesting multiple cavernous malformations with associated blooming. No acute intraparenchymal hemorrhage. Cervical spine and lumbar spine MRI results reviewed. No severe stenosis. Echocardiogram showed ejection fraction of 55% to 60%. No thrombus or PFO. The patient needs EEG to rule out cortical irritability. Agree with starting Keppra 500 mg p.o. b.i.d. The patient does have history of seizure disorder with complex partial seizures emanating from the right temporal lobe. MRI of the brain did have confirmed right temporal gliosis. We will follow up on EEG results to see if he needs adjustment of Keppra. Neuro checks every 4 hours. Observe seizure precautions. Ativan 2 mg IV for seizure greater than 2 minutes. Continue home medications. Strict control of blood pressure and blood glucose. Continue medical management per primary team. PT/OT/speech. DVT prophylaxis. Thank you for the consult. Job ID: [id number] [facility]
--- NOTE | 2020-06-27 18:24 | PDOC.EEG ---
Neurology EEG Report - Report Report: This EEG was performed using 24 channel [employer] video EEG machine with 24 disc velia ctrodes. This was an extended 2 hours 5 minutes of inpatient video EEG recording. Digital analysis of the EEG was done for spike and seizure detection which revealed no abnormalities. Background: There is a nonsustained posterior background rhythm of 8.5 -9 Hz. EEG with excessive beta activity intermixed with the background. Hyperventilation: Not performed. Photic Stimulation: No significant response. Sleep: No stage change is observed. EEG Diagnosis: Rare irregular theta activity seen during the reording. Nonsustained posterior background rhythm. Clinical Interpretation: This EEG is consistent with mild generalized nonspecific cerebral dysfunction.
[2020-06-27] MEDS: Amlodipine 10 MG TAB PO SCH (20:37)
[2020-06-28] MEDS: Insulin Regular 300 UNITS/3 ML VIAL SC PRN ×3 (06:25→17:45)
[2020-06-28] MEDS: Acetaminophen 325 MG TAB PO PRN (06:28)
[2020-06-28] MEDS ORDERED: Folic Acid 1 MG TAB PO SCH (09:00)
[2020-06-28] MEDS: HumuLIN 70/30 (300 UNITS/3 ML VIAL) SC SCH ×2 (09:14→17:46)
[2020-06-28] MEDS: levETIRAcetam 500 MG TAB PO SCH (09:15)
[2020-06-28] MEDS: Metoprolol Tartrate 25 MG TAB PO SCH (09:15)
[2020-06-28] MEDS: Famotidine/PF 20 mg/2ml Vial SLOW IVP SCH (09:15)
--- NOTE | 2020-06-28 11:37 | PRG ---
DATE OF SERVICE: 06/28/2020 The patient was seen and examined. I agree with Brittny Haresh's evaluation on 06/27/2020. The patient is a 45-year-old male with known seizure disorder, whose seizure has been [id number] prompting hospitalization. He has a history of prior right perisylvian hemorrhage and a CT did reveal some hyperdensities in this region of uncertain etiology. The patient also had some vague gait complaints and leg discomfort. Imaging includes MRI of the cervical spine and lumbar spine, which did not reveal any meaningful compression, nothing to explain any symptoms. He does have some degenerative findings that are possibly a chronic fracture at T11-T12 and T12 level. MRI of the brain reveals several spots on T2 gradient in the right perisylvian region. These represent either chronic blood products or possibly tiny cavernous malformations. They are not acute lesions and require no intervention at this time. IMPRESSION AND PLAN: No neurosurgical lesions. Defer to Neurology regarding seizure management. Discussed with medical team. Job ID: [id number]
--- NOTE | 2020-06-28 13:16 | PDOC.NEUPN ---
- Subjective Encounter Date: 06/28/20 Subjective: Mr. Noyola is alert awake and following commands appropriately. - Objective Vital Signs & Weight: Vital Signs (12 hours) Temp Pulse Resp BP Pulse Ox 06/28/20 12:07 98.3 F 70 20 121/72 97 06/28/20 07:56 98.8 F 71 20 138/78 95 Weight Admit Weight 188 lb Weight 188 lb I&O: 06/27/20 06/28/20 06/29/20 06:59 06:59 06:59 Intake Total 1357 Output Total 2100 1200 Balance -743 -1200 Result Diagrams: 06/26/20 06:33 06/26/20 06:33 Additional Labs: Accuchecks 06/28/20 06/28/20 06/27/20 11:05 06:24 20:40 POC Glucose 318 H 450 H 402 H 06/27/20 06/27/20 17:06 09:48 POC Glucose 299 H 170 H Radiology Reviewed by me: Yes EKG Reviewed by me: Yes ROS - Review of Systems Constitutional: denies: fever, chills, sweats, weakness, malaise, other Eyes: denies: pain, vision change, conjunctivae inflammation, eyelid inflammation, redness, other ENT: denies: ear pain, ear discharge, nose pain, nose discharge, nose congestion, mouth pain, mouth swelling, throat pain, throat swelling, other Respiratory: denies: cough, dry, shortness of breath, hemoptysis, SOB with excertion, pleuritic pain, sputum, wheezing, other Gastrointestinal: denies: nausea, vomiting, abdominal pain, diarrhea, constipation, melena, hematochezia, other Genitourinary: denies: dysuria, frequency, incontinence, hematuria, retention, other Musculoskeletal: denies: neck pain, shoulder pain, arm pain, back pain, hand pain, leg pain, foot pain, other Skin: denies: rash, lesions, lakisha, bruising, other Neurological: reports: change in speech, seizures - Medication Medications: Active Medications Generic Name Dose Route Start Last Admin Trade Name Freq PRN Reason Stop Dose Admin Acetaminophen 650 mg 06/25/20 21:25 06/28/20 06:28 Acetaminophen 325 Mg Tab PO 650 mg Q4H PRN Administration Headache/Fever/Mild Pain (1-3) Amlodipine Besylate 10 mg 06/26/20 21:00 06/27/20 20:37 Amlodipine 10 Mg Tab PO 10 mg 2100 SOFYA Administration Famotidine 20 mg 06/26/20 09:00 06/28/20 09:15 Famotidine/Pf 20 Mg/2ml Vial SLOW IVP 20 mg Q12HR SOFYA Administration Folic Acid 1 mg 06/28/20 09:00 06/28/20 09:15 Folic Acid 1 Mg Tab PO 1 mg DAILY SOFYA Administration Insulin Human Isoph/Insulin Regular 30 units 06/28/20 07:30 06/28/20 09:14 Humulin 70/30 (300 Units/3 Ml Vial) SC 30 unit BID-AC SOFYA Administration Insulin Human Regular 0 units 06/25/20 21:33 06/28/20 12:00 Insulin Regular 300 Units/3 Ml Vial SC 8 unit .MODERATE SLIDING SC PRN Administration Moderate Correctional Scale Metoprolol Tartrate 25 mg 06/26/20 09:00 06/28/20 09:15 Metoprolol Tartrate 25 Mg Tab PO 25 mg BID SOFYA Administration Ondansetron HCl 4 mg 06/25/20 21:25 06/27/20 09:03 Ondansetron Pf 4 Mg/2 Ml Vial IVP 4 mg Q6H PRN Administration Nausea/Vomiting - Exam General Appearance: awake alert Eye: PERRL ENT: normocephalic atraumatic Neck: supple Respiratory: CTAB Cardiovascular: RRR Gastrointestinal: soft Extremities: no cyanosis Skin: normal turgor Neurological: no new deficit Musculoskeletal: normal tone, normal strength, no muscle wasting PSYCH: normal affect, normal behavior, A&O x 3 Results - Labs Result Diagrams: 06/26/20 06:33 06/26/20 06:33 Lab results: WBC 6.9 thou/uL (4.8-10.8) 06/26/20 06:33 Hgb 10.2 g/dL (14.0-18.0) L 06/26/20 06:33 Hct 28.3 % (42.0-52.0) L 06/26/20 06:33 MCV 86.1 fL (78.0-98.0) 06/26/20 06:33 Plt Count 262 thou/uL (130-400) 06/26/20 06:33 Neutrophils % 59.8 % (42.0-75.0) 06/26/20 06:33 Sodium 131 mmol/L (136-145) L 06/26/20 06:33 Potassium 3.9 mmol/L (3.5-5.1) 06/26/20 06:33 Chloride 98 mmol/L (98-107) 06/26/20 06:33 Carbon Dioxide 26 mmol/L (22-29) 06/26/20 06:33 BUN 27 mg/dL (8.9-20.6) H 06/26/20 06:33 Creatinine 1.14 mg/dL (0.7-1.3) 06/26/20 06:33 Glucose 319 mg/dL (70-105) H 06/26/20 06:33 Calcium 8.1 mg/dL (7.8-10.44) 06/26/20 06:33 Total Bilirubin 0.6 mg/dL (0.2-1.2) 06/25/20 12:26 AST 30 U/L (5-34) 06/25/20 12:26 ALT 36 U/L (8-55) 06/25/20 12:26 Alkaline Phosphatase 198 U/L (40-110) H 06/25/20 12:26 Creatine Kinase 32 U/L (30-200) 06/25/20 12:26 Troponin I 0.027 ng/mL (< 0.028) 06/25/20 12:26 Serum Total Protein 6.3 g/dL (6.0-8.3) 06/25/20 12:26 Albumin 2.7 g/dL (3.5-5.0) L 06/25/20 12:26 Urine Ketones Negative mg/dL (Negative) 06/25/20 13:30 Urine Blood Trace (Negative) A 06/25/20 13:30 Urine Nitrite Negative (Negative) 06/25/20 13:30 Ur Leukocyte Esterase Negative Patrick/uL (Negative) 06/25/20 13:30 Urine RBC 0-3 HPF (0-3) 06/25/20 13:30 Urine WBC 0-3 HPF (0-3) 06/25/20 13:30 Ur Squamous Epith Cells 0-3 HPF (0-3) 06/25/20 13:30 Urine Bacteria None Seen HPF (None Seen) 01/09/21 13:30 - EKG Interpretation EKG: Normal sinus rhythm - Radiology Interpretation MRI - head Additional Comment: MRI of the brain showed multifocal encephalomalacia and gliosis of the right temporal lobe. There are tiny lesions which are most likely tiny cavernoma's. PN A/P (1) Seizure disorder Code(s): G40.909 - EPILEPSY, UNSP, NOT INTRACTABLE, WITHOUT STATUS EPILEPTICUS Status: Chronic (2) Controlled type 2 diabetes mellitus with hyperglycemia Code(s): E11.65 - TYPE 2 DIABETES MELLITUS WITH HYPERGLYCEMIA Status: Acute (3) Hypertension, uncontrolled Code(s): I10 - ESSENTIAL (PRIMARY) HYPERTENSION Status: Acute (4) Malignant hypertension Code(s): I10 - ESSENTIAL (PRIMARY) HYPERTENSION Status: Acute (5) Multiple falls Code(s): R29.6 - REPEATED FALLS Status: Acute (6) History of subarachnoid hemorrhage Code(s): Z86.79 - PERSONAL HISTORY OF OTHER DISEASES OF THE CIRCULATORY SYSTEM Status: Chronic (7) Intracranial hemorrhage Code(s): I62.9 - NONTRAUMATIC INTRACRANIAL HEMORRHAGE, UNSPECIFIED Status: Ruled-out - Plan Daily Plan: plan discussed w/ family, PT/OT, speech therapy ( on the phone) Mr. Noyola is a 45-year-old male with medical history significant for nontraumatic intracranial hemorrhage presented with multiple falls and altered mental status with episodes concerning for seizures. Patient was diagnosed with seizure disorder last year when he was admitted and underwent craniotomy because of hemorrhage. He was discharged on Keppra but he never took the medicines because he has no insurance. His seizures are characterized by strange feeling in the stomach which is followed by alteration of consciousness and slurred speech. Patient is concerned about slurred speech and wondering if he had a seizure in the last 24 hours. MRI of the brain reviewed which showed multifocal encephalomalacia prior because of prior hemorrhage and gliosis of right temporal lobe. Gliosis of the right temporal lobe is epileptic focus for his partial onset seizures which were described above. EEG reviewed which was negative for seizure activity. There is concern about recurrent seizures so we will repeat EEG today and increase Keppra to 750 mg twice daily. Neurochecks every 4 hours. Observe seizure precautions. Ativan 2 mg IV for seizure greater than 2 minutes. Continue home medications. Case management consult regarding insurance issues. PT/OT/speech Continue medical management per primary team. Plan discussed in detail with the patient, on the phone and also with the nursing staff.
--- NOTE | 2020-06-28 16:17 | PDOC.EEG ---
Neurology EEG Report - Report Report: This EEG was performed using 24 channel [employer] video EEG machine with 24 disc velia ctrodes. This was an extended 2 hours 6 minutes of inpatient video EEG recording. Digital analysis of the EEG was done for spike and seizure detection which revealed no abnormalities. Background: There is a nonsustained posterior background rhythm of 8.5 -9 Hz. EEG with excessive beta activity intermixed with the background. Hyperventilation: Not performed. Photic Stimulation: No significant response. Sleep: No stage change is observed. Spells: 2 spells characterized by anxiety and abnormal sensation in the stomach and slurred speech not associated with ictal correlate. EEG Diagnosis: Rare irregular theta activity seen during the recording. Nonsustained posterior background rhythm. Clinical Interpretation: This EEG is consistent with mild generalized nonspecific cerebral dysfunction. Two stereotypical spells characterized by anxiety , abnormal feeling in the stomach and slurred speech not associated with ictal correlate. These are highly suspicious for simple partial seizures emanating from temporal lobe which we are not able to capture on a scalp recording.
--- NOTE | 2020-06-28 17:10 | DIS ---
DATE OF ADMISSION: 06/25/2020 DATE OF DISCHARGE: 06/28/2020 DISCHARGE DISPOSITION: Home. PRIMARY DISCHARGE DIAGNOSES: Initial suspicion for intracranial hemorrhage is ruled out; seizure disorder; multiple falls likely due to seizure disorder; prior history of intracranial bleed with CVA in the past; diabetes mellitus type 2, uncontrolled; hypertension, uncontrolled. Hypertension is controlled at the time of discharge. PROCEDURES DONE DURING HOSPITALIZATION: Chest x-ray done showed no acute cardiopulmonary abnormalities. CT brain without contrast done on admission showed linear densities in the right insular cortex, which may represent petechial hemorrhages versus areas of calcification. Asymmetric prominence of right temporal horn of the ventricular system uncertain significance. MRI brain with anesthesia sedation due to claustrophobia showed multifocal encephalomalacia and gliosis of right temporal lobe, hypointensity in the axial gradient, echo sequence suggesting multiple cavernous malformation with associated blooming. No acute intraparenchymal hemorrhage. MRI of lumbar spine without contrast showed mild anterior wedging at T12 with anterior osteophytes, broad-based bulge at T11-T12 abuts and mildly compresses the conus. No significant disk bulge or protrusion at any of the lumbar levels. No central canal or foraminal stenosis is seen. MRI cervical spine without contrast showed small focus of high T2 signal in the central cord seen at the C7-T1 disk level. Otherwise, no significant disk bulge, disk protrusion, or spondylosis was seen. Echo with 2D Doppler showed ejection fraction of 55% to 60%, mild concentric LVH. Hemoglobin and hematocrit 10 and 28, platelet count 262, MCV is 86. BUN 27, creatinine 1.1. Initial serum glucose was 680 on admission with BUN 31, creatinine 1.4 on the day of admission. Urine drug screen negative. Plasma alcohol less than 10. COVID-19 PCR was not detected on 06/26/2020. DISCHARGE MEDICATIONS: 1. Keppra 500 mg p.o. twice daily. 2. Lopressor 25 mg twice daily. 3. Norvasc 10 mg daily. 4. Humulin 70/30, 30 units subcu twice daily. 5. Thiamine 100 mg p.o. daily. 6. Folic acid 1 mg p.o. daily. ALLERGIES: NO KNOWN DRUG ALLERGIES. INPATIENT CONSULT: 1. Dr. Sanchez for Neurology. 2. Dr. Rodgers for Neurosurgery. DISCHARGE PLAN: The patient to follow up with Shell Knox, nurse practitioner on 07/06/2020 at 9:15 a.m. at [facility]. BRIEF COURSE DURING HOSPITALIZATION: The patient initially got admitted on the with history of multiple falls and headache. Initial CAT scan was suspicious for possible petechial hemorrhages in the brain. He was admitted to medical floor and has had serial CAT scans x2 and MRI with anesthesia sedation due to claustrophobia, none of which revealed any acute bleed. The patient has cavernous malformation and gliosis with encephalomalacia from prior bleed. He has known history of seizure disorder, likely has had seizures with falls. The patient was not on any medication for diabetes or hypertension, both of which were uncontrolled. His medications were optimized. The patient has remained hemodynamically stable. He is neurologically stable. An EEG done did not reveal any seizure focus as such. He was evaluated by Dr. Rodgers for Neurosurgery and Dr. Sanchez for Neurology. Prior to discharge, he has ambulated more than 400 feet. The patient has a rolling walker in his car. He will be shortly discharged to home. Case Management consultation was requested for help with medications as the patient is unfunded. He has outpatient followup set up on the at [facility]. The patient was counseled with regard to medication and dietary compliance and followups with physicians. Please note I have seen and examined patient on the day of discharge. Job ID: [id number] [facility] CENTERDesire
[2020-06-28 17:47] VITALS: TEMP 98.8
[2020-06-28 18:58] VITALS: BP 143/71
[2020-06-28] MEDS ORDERED: levETIRAcetam 500 MG TAB PO SCH (21:00)
--- NOTE | 2020-07-01 07:24 | PQF ---
CLINICAL DOCUMENTATION CLARIFICATION FORM: Dear : Rita Arauz Date / Time:07/01/20 07:24 Please exercise your independent, professional judgment in responding to the clarification form. Clinical indicators are provided on the bottom of this form for your review Based on your clinical judgment, can you please clarify the neurological status of this patient? Please check appropriate box(es): [ >] Encephalopathy: Etiology: [ > ] Hypertensive [ ] Metabolic [ ] Unspecified [ ] Other (please specify) [ ] Transient Alteration of Awareness [ ] Other diagnosis, please specify [ ] Unable to determine In addition, please specify: Present on Admission (POA): [ >] Yes [ ] No [ ] Unable to determine Physician Signature: Date/Time: For continuity of documentation, please document condition throughout progress notes and discharge summary. Thank You. To be completed by CDI/Coding staff for physician review: Present Clinical Indicators - Signs / Symptoms / Labs Results and Location in Medical Record [x] presented with episodes of altered awareness Consult 06/27 [x] multiple fall and headache DS 06/28 [x] Patient is alert and oriented to person place and time Consult 06/27 [x] BP: 06/2578=554/95 06/2688=786/102 Vital Signs 06/25 [x] Glucose: 06/2599=959 06/2650=840 06/2858=617 Laboratory 06/25 Present Risk Factors Results and Location in Medical Record [x] Seizure disorder DS 06/28 [x] DM DS 06/28 [x] Old CVA DS 06/28 [x] HTN DS 06/28 [x] Cavernous Malformation DS 06/28 [x] Former Smoker HP 06/25 Present[x] Treatments Results and Location in Medical Record [x] Neurocheck every 4 hrs HP 06/25 [x] Amlodipine 10mg Oral MAR 06/25 [x] IVF MAR 06/25 [x] Keppra 500mg Oral AUG 15 [x] Neurology Consult Consult 06/26 CDS/Flight Mechanic Signature: Chelsea Sesay Phone #: [phone] Date/Time: 07/01/20 This is a permanent part of the Medical Record [facility]
== END 2020-06-28 17:45 | disposition home or self-care (01) | DRG 100 ==
LOC: ERS 11:19 → ERHOLD 21:02 → 3SE 06-26 00:09
PROVIDERS: ADMIT Internal Medicine; ATTEND Internal Medicine
DX: G40.909 Epilepsy, unspecified, not intractable, without status epilepticus (principal); Q28.2 Arteriovenous malformation of cerebral vessels; I67.4 Hypertensive encephalopathy; R29.6 Repeated falls; Z20.822 Contact with and (suspected) exposure to COVID-19; Z23 Encounter for immunization; E11.65 Type 2 diabetes mellitus with hyperglycemia; G93.89 Other specified disorders of brain; F32.9 Major depressive disorder, single episode, unspecified; I10 Essential (primary) hypertension; Z86.19 Personal history of other infectious and parasitic diseases; Z86.73 Personal history of transient ischemic attack (TIA), and cerebral infarction without residual deficits; Z90.49 Acquired absence of other specified parts of digestive tract; Z87.891 Personal history of nicotine dependence
CPT/HCPCS: 36415; 36416; 70450; 70551; 71045; 72141; 72148; 80048; 80053; 80306; 80307; 81003; 81015; 82010; 82550; 84146; 84484; 85025; 87635; 90471; 90732; 93306; 95712; 95816; 95819; 95957; G0009; J1100; J1815; J2405; J2704; J3490; S0028; U0003

== ENCOUNTER 2020-07-21 08:54 | Emergency (ER) | payer SELFPAY ==
[2020-07-21 09:37] LABS: #Basophils 0.1 thou/uL (0.0-0.2); #Eosinphils 0.3 thou/uL (0.0-0.7); #Lymphocytes 2.2 thou/uL (1.20-3.40); #Monocytes 0.9 thou/uL (0.11-0.59); #Neutrophils 4.2 thou/uL (1.40-6.50); %Basophils 0.7 % (0.0-1.0); %Eosinophils 4.5 % (0.0-10.0); %Lymphocytes 28.6 % (21.0-51.0); %Monocytes 11.2 % (0.0-10.0); Hemoglobin 12.7 g/dL (14.0-18.0); Mean Corpuscular HGB CONC 34.6 g/dL (32.0-36.0); Mean Corpuscular Hemoglobin 30.3 pg (27.0-31.0); Mean Corpuscular Volume 87.5 fL (78.0-98.0); Mean Platelet Volume 5.8 fL (7.4-10.4); Platelet Count 318 thou/uL (130-400); RBC Distribution Width 12.3 % (11.5-14.5); Red Blood Cell (RBC) Count 4.18 mill/uL (4.70-6.10); White Blood Cell (WBC) Count 7.6 thou/uL (4.8-10.8)
[2020-07-21 09:51] LABS: Acetaminophen Less than 6.0 mcg/mL (10.0-30.0); Alcohol Less than 10 mg/dL (Less than 10); CK (CPK) 49 U/L (30-200); Magnesium 1.6 mg/dL (1.6-2.6); Salicylate Less than 8.0 mg/dL (15.0-30.0)
[2020-07-21 10:00] LABS: ALT (SGPT) 89 U/L (8-55); AST (SGOT) 100 U/L (5-34); Albumin 3.2 g/dL (3.5-5.0); Alkaline Phosphatase 477 U/L (40-110); Anion Gap 13 mmol/L (10-20); BUN (Urea Nitrogen) 29 mg/dL (8.9-20.6); Bilirubin, Total 0.7 mg/dL (0.2-1.2); Calc. Creatinine Clearance 0 mL/min (70-130); Calcium 8.7 mg/dL (7.8-10.44); Carbon Dioxide 26 mmol/L (22-29); Chloride 103 mmol/L (98-107); Glucose 76 mg/dL (70-105); Potassium 4.2 mmol/L (3.5-5.1); Protein, Total 7.2 g/dL (6.0-8.3); Sodium 138 mmol/L (136-145)
--- NOTE | 2020-07-21 10:16 | CT ---
CT OF THE BRAIN WITHOUT CONTRAST: INDICATION: A 45-year-old male with syncopal episode. COMPARISON: Prior exam of the brain dated 06/27/[address] of the brain dated 06/25/2020. FINDINGS: The regions of encephalomalacia involving the right frontal and temporal lobe, largely stable. Crani otomy changes are stable. No midline shift, acute infarct, hemorrhage, or hydrocephalus is present. Septum pellucidum and third ventricle are midline. Mastoid air cells and paranasal sinuses are romulo r. IMPRESSION: Stable chronic findings. No definite acute intracranial abnormality demonstrated. POS: OFF
--- NOTE | 2020-07-21 10:31 | RAD ---
PORTABLE CHEST: Date: 07/21/2020 HISTORY: Syncopal episode. Patient was found down on floor this morning. COMPARISON: 06/25/2020 study. FINDINGS: Heart size and mediastinum are within normal limits. Lungs show some interstitial changes in the base s which appears to be more related than scarring. No definite acute process. IMPRESSION: No active intrathoracic disease. POS: AALIYAH
[2020-07-21 10:46] LABS: Amphetamine Not Detected (NotDetected); Barbiturates Screen Not Detected (NotDetected); Benzodiazepine Screen Not Detected (NotDetected); Cocaine Metabolite Screen Not Detected (NotDetected); Medtox Control Line Valid? VALID (VALID); Medtox Reader # READER 4; Methadone Not Detected (NotDetected); Methamphetamine Not Detected (NotDetected); Opiate Screen Not Detected (NotDetected); Oxycodone Screen Not Detected (NotDetected); Phencyclidine (PCP) Not Detected (NotDetected); THC/Cannabinoid Screen Not Detected (NotDetected); Tricyclic Screen Not Detected (NotDetected)
== END 2020-07-21 11:45 | disposition home or self-care (01) ==
LOC: ERS 08:54
DX: R55 Syncope and collapse (principal); R94.5 Abnormal results of liver function studies; R60.0 Localized edema; E11.9 Type 2 diabetes mellitus without complications; Z86.73 Personal history of transient ischemic attack (TIA), and cerebral infarction without residual deficits; Z87.891 Personal history of nicotine dependence; Z79.4 Long term (current) use of insulin; Z79.899 Other long term (current) drug therapy
CPT/HCPCS: 36415; 36416; 70450; 71045; 80053; 80306; 80307; 82550; 83735; 83880; 84484; 85025; 93005

== ENCOUNTER 2020-09-04 14:23 | Emergency (ER) | payer SELFPAY ==
[2020-09-04 15:14] LABS: #Eosinphils 0.2 thou/uL (0.0-0.7); #Lymphocytes 1.7 thou/uL (1.20-3.40); #Monocytes 0.5 thou/uL (0.11-0.59); #Neutrophils 4.1 thou/uL (1.40-6.50); %Basophils 0.3 % (0.0-1.0); %Eosinophils 3.8 % (0.0-10.0); %Lymphocytes 25.5 % (21.0-51.0); %Monocytes 8.1 % (0.0-10.0); %Neutrophils 62.3 % (42.0-75.0); Mean Corpuscular HGB CONC 34.5 g/dL (32.0-36.0); Mean Corpuscular Hemoglobin 29.5 pg (27.0-31.0); Mean Corpuscular Volume 85.5 fL (78.0-98.0); Mean Platelet Volume 6.7 fL (7.4-10.4); Platelet Count 174 thou/uL (130-400); RBC Distribution Width 12.5 % (11.5-14.5); Red Blood Cell (RBC) Count 3.39 mill/uL (4.70-6.10); White Blood Cell (WBC) Count 6.6 thou/uL (4.8-10.8)
[2020-09-04 15:15] LABS: PTT 40.3 sec (22.9-36.1); Prothrombin Time 13.6 sec (12.0-14.7)
[2020-09-04] MEDS ORDERED: levETIRAcetam 500 MG TAB PO SCH (15:15)
[2020-09-04 15:33] LABS: ALT (SGPT) 10 U/L (8-55); AST (SGOT) 13 U/L (5-34); Albumin 2.8 g/dL (3.5-5.0); Alkaline Phosphatase 125 U/L (40-110); Anion Gap 12 mmol/L (10-20); BUN (Urea Nitrogen) 37 mg/dL (8.9-20.6); Bilirubin, Total 0.8 mg/dL (0.2-1.2); Calc. Creatinine Clearance 0 mL/min (70-130); Calcium 7.8 mg/dL (7.8-10.44); Carbon Dioxide 21 mmol/L (22-29); Chloride 105 mmol/L (98-107); Globulin 3.8 g/dL (2.4-3.5); Glucose 528 mg/dL (70-105); Potassium 5.2 mmol/L (3.5-5.1); Protein, Total 6.6 g/dL (6.0-8.3); Sodium 133 mmol/L (136-145)
[2020-09-04] MEDS ORDERED: Ketorolac Tromethamine 30 MG/ML VIAL ONE (18:03)
== END 2020-09-04 18:07 | disposition home or self-care (01) ==
LOC: ERS 14:23
DX: G40.409 Other generalized epilepsy and epileptic syndromes, not intractable, without status epilepticus (principal); E11.9 Type 2 diabetes mellitus without complications; Z79.4 Long term (current) use of insulin; Z79.899 Other long term (current) drug therapy; Z87.891 Personal history of nicotine dependence
CPT/HCPCS: 36415; 70450; 71045; 80053; 84484; 85025; 85610; 85730; 93005; 96372; J1885

== ENCOUNTER 2020-09-28 08:10 | Emergency (ER) | payer SELFPAY ==
[2020-09-28 09:56] LABS: #Eosinphils 0.4 thou/uL (0.0-0.7); #Lymphocytes 2.1 thou/uL (1.20-3.40); #Monocytes 0.6 thou/uL (0.11-0.59); #Neutrophils 5.3 thou/uL (1.40-6.50); %Basophils 0.4 % (0.0-1.0); %Eosinophils 4.8 % (0.0-10.0); %Lymphocytes 25.1 % (21.0-51.0); %Monocytes 7.5 % (0.0-10.0); %Neutrophils 62.2 % (42.0-75.0); Hemoglobin 11.5 g/dL (14.0-18.0); Mean Corpuscular HGB CONC 36.5 g/dL (32.0-36.0); Mean Corpuscular Volume 84.8 fL (78.0-98.0); Platelet Count 240 thou/uL (130-400); RBC Distribution Width 12.2 % (11.5-14.5); Red Blood Cell (RBC) Count 3.72 mill/uL (4.70-6.10); White Blood Cell (WBC) Count 8.5 thou/uL (4.8-10.8)
[2020-09-28 09:58] LABS: ALT (SGPT) Less than 7 U/L (8-55); AST (SGOT) 11 U/L (5-34); Albumin 3.1 g/dL (3.5-5.0); Alkaline Phosphatase 173 U/L (40-110); Anion Gap 13 mmol/L (10-20); BUN (Urea Nitrogen) 35 mg/dL (8.9-20.6); Bilirubin, Total 0.9 mg/dL (0.2-1.2); CK (CPK) 56 U/L (30-200); Calc. Creatinine Clearance 0 mL/min (70-130); Calcium 8.8 mg/dL (7.8-10.44); Carbon Dioxide 23 mmol/L (22-29); Chloride 107 mmol/L (98-107); Globulin 4.2 g/dL (2.4-3.5); Glucose 193 mg/dL (70-105); Lipase 12 U/L (8-78); Potassium 4.9 mmol/L (3.5-5.1); Protein, Total 7.3 g/dL (6.0-8.3); Sodium 138 mmol/L (136-145)
[2020-09-28] MEDS ORDERED: Ondansetron PF 4 MG/2 ML Vial ONE (11:10)
[2020-09-28] MEDS ORDERED: Morphine 4 MG/ML VIAL ONE (11:10)
[2020-09-28 12:01] LABS: Bilirubin Negative (Negative); Blood, Urine 2+ (Negative); Clarity Clear (Clear); Glucose, Urine (Dipstick) 300 mg/dL (Negative); Ketone, Urine Negative (Negative); Leukocyte Negative Leu/uL (Negative); Nitrite Negative (Negative); Protein, Urine (Dipstick) 600 mg/dL (Neg-Trace); Squamous Epithelial 0-3 HPF (0-3); Urobilinogen Normal mg/dL (Less than 2); WBC/HPF 0-3 HPF (0-3); pH, Urine 6.5 (5.0-9.0)
[2020-09-28 12:05] LABS: Bacteria/HPF 1+ HPF (None Seen)
== END 2020-09-28 12:55 | disposition home or self-care (01) ==
LOC: ERS 08:10
DX: R10.30 Lower abdominal pain, unspecified (principal); R51.9 Headache, unspecified; E11.9 Type 2 diabetes mellitus without complications; R56.9 Unspecified convulsions; Z86.73 Personal history of transient ischemic attack (TIA), and cerebral infarction without residual deficits; Z87.891 Personal history of nicotine dependence; Z79.899 Other long term (current) drug therapy; Z79.4 Long term (current) use of insulin
CPT/HCPCS: 36415; 70450; 74177; 80053; 81003; 81015; 82550; 83690; 85025; 96374; 96375; J2270; J2405

== ENCOUNTER 2020-11-03 12:08 | Emergency (ER) | payer SELFPAY ==
[2020-11-03] MEDS ORDERED: Ondansetron PF 4 MG/2 ML Vial ONE (14:22)
[2020-11-03 15:03] LABS: #Basophils 0.1 thou/uL (0.0-0.2); #Lymphocytes 0.9 thou/uL (1.20-3.40); #Monocytes 0.4 thou/uL (0.11-0.59); #Neutrophils 2.2 thou/uL (1.40-6.50); %Basophils 1.4 % (0.0-1.0); %Eosinophils 1.3 % (0.0-10.0); %Lymphocytes 24.8 % (21.0-51.0); %Monocytes 11.5 % (0.0-10.0); %Neutrophils 60.9 % (42.0-75.0); Hemoglobin 10.4 g/dL (14.0-18.0); Mean Corpuscular HGB CONC 37.1 g/dL (32.0-36.0); Mean Corpuscular Hemoglobin 31.4 pg (27.0-31.0); Mean Corpuscular Volume 84.6 fL (78.0-98.0); Mean Platelet Volume 6.6 fL (7.4-10.4); Platelet Count 146 thou/uL (130-400); RBC Distribution Width 11.8 % (11.5-14.5); Red Blood Cell (RBC) Count 3.32 mill/uL (4.70-6.10); White Blood Cell (WBC) Count 3.7 thou/uL (4.8-10.8)
[2020-11-03 15:14] LABS: ALT (SGPT) 9 U/L (8-55); AST (SGOT) 17 U/L (5-34); Albumin 2.9 g/dL (3.5-5.0); Alkaline Phosphatase 139 U/L (40-110); Anion Gap 13 mmol/L (10-20); BUN (Urea Nitrogen) 32 mg/dL (8.9-20.6); Bilirubin, Total 0.7 mg/dL (0.2-1.2); Calc. Creatinine Clearance 0 mL/min (70-130); Calcium 8.1 mg/dL (7.8-10.44); Carbon Dioxide 21 mmol/L (22-29); Chloride 108 mmol/L (98-107); Globulin 3.8 g/dL (2.4-3.5); Glucose 249 mg/dL (70-105); Lipase 8 U/L (8-78); Potassium 4.8 mmol/L (3.5-5.1); Protein, Total 6.7 g/dL (6.0-8.3); Sodium 137 mmol/L (136-145)
[2020-11-03] MEDS ORDERED: Morphine 4 MG/ML VIAL ONE (15:47)
== END 2020-11-03 18:01 | disposition home or self-care (01) ==
LOC: ERS 12:08
DX: U07.1 COVID-19 (principal); R10.811 Right upper quadrant abdominal tenderness; R10.816 Epigastric abdominal tenderness; R11.2 Nausea with vomiting, unspecified; I10 Essential (primary) hypertension; K21.9 Gastro-esophageal reflux disease without esophagitis; E11.40 Type 2 diabetes mellitus with diabetic neuropathy, unspecified; Z79.899 Other long term (current) drug therapy; Z86.73 Personal history of transient ischemic attack (TIA), and cerebral infarction without residual deficits
CPT/HCPCS: 76705; 80053; 83690; 85025; 96374; 96375; J2270; J2405

== ENCOUNTER 2020-11-04 13:34 | Observation (INO) | payer SELFPAY ==
[2020-11-04 14:20] LABS: #Lymphocytes 1.2 thou/uL (1.20-3.40); #Monocytes 0.3 thou/uL (0.11-0.59); #Neutrophils 1.9 thou/uL (1.40-6.50); %Basophils 0.5 % (0.0-1.0); %Eosinophils 0.7 % (0.0-10.0); %Lymphocytes 35.2 % (21.0-51.0); %Monocytes 9.2 % (0.0-10.0); %Neutrophils 54.5 % (42.0-75.0); Mean Corpuscular Hemoglobin 30.7 pg (27.0-31.0); Mean Corpuscular Volume 85.2 fL (78.0-98.0); Mean Platelet Volume 6.8 fL (7.4-10.4); Platelet Count 172 thou/uL (130-400); RBC Distribution Width 11.7 % (11.5-14.5); Red Blood Cell (RBC) Count 3.57 mill/uL (4.70-6.10); White Blood Cell (WBC) Count 3.5 thou/uL (4.8-10.8)
[2020-11-04] MEDS ORDERED: Metoclopramide HCl 10 MG/2 ML VIAL ONE (14:29)
[2020-11-04] MEDS ORDERED: Ondansetron PF 4 MG/2 ML Vial ONE (14:29)
[2020-11-04 14:53] LABS: ALT (SGPT) 9 U/L (8-55); AST (SGOT) 19 U/L (5-34); Alkaline Phosphatase 154 U/L (40-110); Anion Gap 12 mmol/L (10-20); BUN (Urea Nitrogen) 28 mg/dL (8.9-20.6); Bilirubin, Total 0.8 mg/dL (0.2-1.2); Calc. Creatinine Clearance 0 mL/min (70-130); Calcium 8.9 mg/dL (7.8-10.44); Carbon Dioxide 24 mmol/L (22-29); Chloride 107 mmol/L (98-107); Globulin 4.3 g/dL (2.4-3.5); Glucose 218 mg/dL (70-105); Potassium 4.6 mmol/L (3.5-5.1); Protein, Total 7.3 g/dL (6.0-8.3); Sodium 138 mmol/L (136-145)
[2020-11-04] MEDS ORDERED: Promethazine HCl 25 MG/ML VIAL ONE (15:41)
[2020-11-04] MEDS ORDERED: hydrALAZINE 20 MG/ML VIAL ONE (16:37)
[2020-11-04] MEDS ORDERED: Acetaminophen 325 MG TAB PO PRN (17:33)
[2020-11-04] MEDS ORDERED: Acetaminophen 650 MG Suppository PR PRN (17:33)
[2020-11-04] MEDS ORDERED: Pantoprazole 40 MG VIAL IVP SCH ×2 (18:00→18:15)
[2020-11-04] MEDS ORDERED: Sodium Chloride 0.9% (PF) 10 ML VIAL FS PRN (18:15)
[2020-11-04] MEDS ORDERED: Dextrose 50% Abboject 50 ML SYRINGE SLOW IVP PRN (18:21)
[2020-11-04] MEDS ORDERED: hydrALAZINE 20 MG/ML VIAL SLOW IVP PRN (18:21)
[2020-11-04] MEDS ORDERED: Dextrose 5% in Water 1,000 ML IV PRN (18:21)
[2020-11-04] MEDS: Sodium Chloride 0.9% 1,000 ML IV SCH (20:38)
[2020-11-04] MEDS: Ondansetron PF 4 MG/2 ML Vial IVP PRN (20:39)
[2020-11-04] MEDS: Metoprolol Tartrate 25 MG TAB PO SCH (20:39)
[2020-11-04] MEDS: levETIRAcetam in NS 1,000 MG in Premix Bag 1 BAG IVPB SCH (20:39)
[2020-11-04] MEDS ORDERED: Enoxaparin Sodium 40 MG/0.4 ML SYRINGE SC SCH (21:00)
[2020-11-04 23:19] VITALS: BMI 22.6
[2020-11-05] MEDS: Ondansetron PF 4 MG/2 ML Vial IVP PRN ×2 (02:15→08:25)
[2020-11-05] MEDS: HumaLOG 300 UNITS/3 ML VIAL SC PRN ×2 (06:08→12:06)
[2020-11-05 06:52] LABS: #Eosinphils 0.1 thou/uL (0.0-0.7); #Lymphocytes 1.3 thou/uL (1.20-3.40); #Monocytes 0.3 thou/uL (0.11-0.59); #Neutrophils 1.6 thou/uL (1.40-6.50); %Eosinophils 2.2 % (0.0-10.0); %Lymphocytes 38.7 % (21.0-51.0); %Monocytes 10.3 % (0.0-10.0); %Neutrophils 48.8 % (42.0-75.0); Hemoglobin 9.4 g/dL (14.0-18.0); Mean Corpuscular HGB CONC 36.9 g/dL (32.0-36.0); Mean Platelet Volume 6.4 fL (7.4-10.4); Platelet Count 126 thou/uL (130-400); RBC Distribution Width 11.8 % (11.5-14.5); Red Blood Cell (RBC) Count 3.02 mill/uL (4.70-6.10); White Blood Cell (WBC) Count 3.3 thou/uL (4.8-10.8)
[2020-11-05 07:02] LABS: Anion Gap 11 mmol/L (10-20); BUN (Urea Nitrogen) 24 mg/dL (8.9-20.6); Calc. Creatinine Clearance 67 mL/min (70-130); Calcium 7.6 mg/dL (7.8-10.44); Carbon Dioxide 21 mmol/L (22-29); Chloride 111 mmol/L (98-107); Glucose 224 mg/dL (70-105); Sodium 139 mmol/L (136-145)
[2020-11-05] MEDS: Metoprolol Tartrate 25 MG TAB PO SCH (07:50)
[2020-11-05] MEDS: Sodium Chloride 0.9% 1,000 ML IV SCH (07:51)
[2020-11-05] MEDS: levETIRAcetam in NS 1,000 MG in Premix Bag 1 BAG IVPB SCH (08:25)
[2020-11-05] MEDS ORDERED: Amlodipine 10 MG TAB PO SCH (09:00)
[2020-11-05] MEDS ORDERED: Pantoprazole 40 MG VIAL IVP SCH ×2 (09:00)
[2020-11-05] MEDS ORDERED: Lisinopril 10 MG TAB PO SCH (09:00)
[2020-11-05 11:47] VITALS: TEMP 98.2
[2020-11-05] MEDS ORDERED: Loperamide HCl 2 MG CAP PO PRN (11:50)
[2020-11-05 11:54] VITALS: BP 127/74
== END 2020-11-05 14:08 | disposition home or self-care (01) ==
LOC: ERS 13:34 → T4-B 15:40
PROVIDERS: ADMIT Internal Medicine; ATTEND Internal Medicine
DX: U07.1 COVID-19 (principal); R07.89 Other chest pain; R05 Cough; R11.2 Nausea with vomiting, unspecified; K21.9 Gastro-esophageal reflux disease without esophagitis; I10 Essential (primary) hypertension; E11.65 Type 2 diabetes mellitus with hyperglycemia; E11.42 Type 2 diabetes mellitus with diabetic polyneuropathy; B19.20 Unspecified viral hepatitis C without hepatic coma; G40.909 Epilepsy, unspecified, not intractable, without status epilepticus; Z79.4 Long term (current) use of insulin; Z79.899 Other long term (current) drug therapy; Z86.73 Personal history of transient ischemic attack (TIA), and cerebral infarction without residual deficits; Z86.79 Personal history of other diseases of the circulatory system
CPT/HCPCS: 36415; 36416; 71045; 80048; 80053; 84484; 85025; 85379; 93005; 96365; 96366; 96367; 96375; 96376; C9113; G0378; J0360; J1953; J2405; J2550; J2765

== ENCOUNTER 2020-11-20 05:31 | Inpatient (IN) | payer SELFPAY ==
[2020-11-20] MEDS ORDERED: Bisacodyl 10 MG SUPP PR PRN (08:09)
[2020-11-20] MEDS ORDERED: Ondansetron ODT 4 MG TAB PO PRN (08:14)
[2020-11-20] MEDS ORDERED: Senokot S 8.6-50 MG TAB PO PRN (08:14)
[2020-11-20] MEDS ORDERED: Electrolyte Replacement Protocol 1 EACH FS SCH (08:15)
[2020-11-20] MEDS ORDERED: Ventilator Sedation Protocol 1 EACH FS SCH (08:15)
[2020-11-20] MEDS ORDERED: Vancomycin 1 GM in Premix Bag 1 BAG IVPB SCH (08:15)
[2020-11-20] MEDS ORDERED: Propofol 1,000 MG/100 ML VIAL IV ONE (08:18)
[2020-11-20] MEDS ORDERED: Morphine 2 MG/ML VIAL SLOW IVP PRN (08:30)
[2020-11-20] MEDS ORDERED: Fentanyl BOLUS 250 ML IVPB PRN (08:30)
[2020-11-20] MEDS ORDERED: Propofol BOLUS 1,000 MG/100 ML VIAL IV PRN (08:30)
[2020-11-20] MEDS ORDERED: Magnesium 2 GM/50 ML 2 GM in Premix Bag 1 BAG IVPB SCH (08:30)
[2020-11-20] MEDS ORDERED: fentaNYL Citrate/PF 2,000 MCG in Sodium Chloride 0.9% 60 ML IV SCH (08:30)
[2020-11-20] MEDS: D5 1/2 NS w/20 mEq KCL 1,000 ML IV SCH (08:53)
[2020-11-20] MEDS: Cefepime 2 GM in Sodium Chloride 0.9% 100 ML IVPB SCH ×2 (08:54→20:44)
[2020-11-20] MEDS: Amlodipine 10 MG TAB PO SCH (08:55)
[2020-11-20] MEDS: Carvedilol 6.25 MG TAB PO SCH ×2 (08:55→20:22)
[2020-11-20] MEDS: Enoxaparin Sodium 40 MG/0.4 ML SYRINGE SC SCH (08:56)
[2020-11-20] MEDS ORDERED: levETIRAcetam in NS 1,000 MG in Premix Bag 1 BAG IVPB SCH (09:00)
[2020-11-20] MEDS ORDERED: Famotidine/PF 20 mg/2ml Vial SLOW IVP SCH (09:00)
[2020-11-20] MEDS ORDERED: Fentanyl CADD 100 ML IV SCH (09:00)
[2020-11-20] MEDS: Folic Acid 1 MG TAB PO SCH (09:08)
[2020-11-20] MEDS: Thiamine 100 MG TAB PO SCH (09:08)
[2020-11-20] MEDS: Multivit, Therapeutic 1 TAB PO SCH (09:08)
[2020-11-20] MEDS: Vancomycin HCl 750 MG in Sodium Chloride 0.9% 250 ML 250 ML IVPB SCH ×2 (11:38→22:12)
[2020-11-20] MEDS: Insulin Regular 300 UNITS/3 ML VIAL SC PRN ×3 (13:01→22:35)
[2020-11-20] MEDS: Propofol 1,000 MG/100 ML VIAL IV PRN ×2 (13:02→21:09)
[2020-11-20] MEDS: hydrALAZINE 20 MG/ML VIAL SLOW IVP PRN (15:33)
[2020-11-20] MEDS: Acetaminophen 650 MG/20.3 ML UDCUP PO PRN (16:25)
[2020-11-20 16:52] LABS: Anion Gap 14 mmol/L (10-20); BUN (Urea Nitrogen) 15 mg/dL (8.9-20.6); CRP (Inflammatory) 2.87 mg/dL (= or < 0.5); Calc. Creatinine Clearance 77 mL/min (70-130); Calcium 8.1 mg/dL (7.8-10.44); Carbon Dioxide 22 mmol/L (22-29); Chloride 105 mmol/L (98-107); Glucose 254 mg/dL (70-105); Sodium 137 mmol/L (136-145)
[2020-11-20] MEDS: Lorazepam 2 MG/ML VIAL SLOW IVP PRN ×2 (19:49→23:06)
[2020-11-20] MEDS: Pantoprazole 40 MG VIAL IVP SCH (20:24)
[2020-11-20] MEDS: levETIRAcetam in NS 1,500 MG in Premix Bag 1 BAG IVPB SCH (20:50)
[2020-11-20] MEDS: Labetalol HCl 100 MG/20 ML VIAL SLOW IVP PRN (23:07)
[2020-11-21] MEDS: Acetaminophen 650 MG/20.3 ML UDCUP PO PRN ×3 (00:35→16:24)
[2020-11-21] MEDS: Propofol 1,000 MG/100 ML VIAL IV PRN ×4 (00:39→21:02)
[2020-11-21] MEDS: Labetalol HCl 100 MG/20 ML VIAL SLOW IVP PRN (02:42)
[2020-11-21 03:51] LABS: Hemoglobin 10.2 g/dL (14.0-18.0); Mean Corpuscular Hemoglobin 29.8 pg (27.0-31.0); Mean Corpuscular Volume 85.1 fL (78.0-98.0); Mean Platelet Volume 6.1 fL (7.4-10.4); Platelet Count 228 thou/uL (130-400); RBC Distribution Width 12.7 % (11.5-14.5); Red Blood Cell (RBC) Count 3.43 mill/uL (4.70-6.10); White Blood Cell (WBC) Count 15.3 thou/uL (4.8-10.8)
[2020-11-21 04:14] LABS: ALT (SGPT) Less than 7 U/L (8-55); AST (SGOT) 12 U/L (5-34); Albumin 2.5 g/dL (3.5-5.0); Alkaline Phosphatase 129 U/L (40-110); Anion Gap 15 mmol/L (10-20); BUN (Urea Nitrogen) 19 mg/dL (8.9-20.6); Calc. Creatinine Clearance 63 mL/min (70-130); Calcium 8.3 mg/dL (7.8-10.44); Carbon Dioxide 19 mmol/L (22-29); Chloride 105 mmol/L (98-107); Globulin 3.9 g/dL (2.4-3.5); Glucose 206 mg/dL (70-105); Magnesium 1.8 mg/dL (1.6-2.6); Potassium 4.3 mmol/L (3.5-5.1); Protein, Total 6.4 g/dL (6.0-8.3); Sodium 135 mmol/L (136-145)
[2020-11-21 04:16] LABS: Phosphorus 3.7 mg/dL (2.3-4.7)
[2020-11-21 04:53] LABS: Band 3 % (5-11); Eosinophils 2 % (0-10); Lymphocytes 8 % (21-51); MDiff Complete? YES; Monocytes 9 % (0-10); Neutrophil 78 % (42-75)
[2020-11-21] MEDS ORDERED: Magnesium 2 GM/50 ML 2 GM in Premix Bag 1 BAG IVPB SCH (05:00)
[2020-11-21] MEDS: Insulin Regular 300 UNITS/3 ML VIAL SC PRN ×4 (06:05→22:29)
[2020-11-21 07:20] LABS: Actual Bicarbonate (HCO3a) 22.4 mEq/L (22-28); Base Excess (BEa) -0.6 mEq/L (-2.0 to +3.0); CO2 Tension 30.6 mmHg (35.0-45.0); Calcium, Ionized (arterial) 1.09 mmol/L (1.12-1.30); Carboxyhemoglobin (COHb) 0.3 gm% (0.0-3.0); Hemoglobin (Hb) 9.8 g/dL (14.0-18.0); O2 Tension (PaO2), arterial 129.3 mmHg (80.0-100.0); Potassium - ABG Lab 4.03 mmol/L (3.70-5.30); pH, Arterial 7.48 (7.35-7.45)
[2020-11-21 07:24] LABS: Puncture Site LRA
[2020-11-21] MEDS: D5 1/2 NS w/20 mEq KCL 1,000 ML IV SCH (08:49)
[2020-11-21] MEDS: Enoxaparin Sodium 40 MG/0.4 ML SYRINGE SC SCH (08:58)
[2020-11-21] MEDS: Amlodipine 10 MG TAB PO SCH (08:58)
[2020-11-21] MEDS: Thiamine 100 MG TAB PO SCH (08:58)
[2020-11-21] MEDS: Folic Acid 1 MG TAB PO SCH (08:58)
[2020-11-21] MEDS: Multivit, Therapeutic 1 TAB PO SCH (08:58)
[2020-11-21] MEDS: Cefepime 2 GM in Sodium Chloride 0.9% 100 ML IVPB SCH ×2 (08:59→21:06)
[2020-11-21] MEDS: Carvedilol 6.25 MG TAB PO SCH (08:59)
[2020-11-21] MEDS ORDERED: Prevnar 13-Val Conj/PF 0.5 ML SYRINGE IM ONE (09:00)
[2020-11-21] MEDS: levETIRAcetam in NS 1,500 MG in Premix Bag 1 BAG IVPB SCH ×2 (09:06→21:56)
[2020-11-21] MEDS: Vancomycin HCl 750 MG in Sodium Chloride 0.9% 250 ML 250 ML IVPB SCH ×3 (11:00→23:15)
[2020-11-21] MEDS: Lorazepam 2 MG/ML VIAL SLOW IVP PRN (16:25)
[2020-11-21] MEDS: Pantoprazole 40 MG VIAL IVP SCH (21:11)
[2020-11-21 22:22] LABS: Vancomycin, Trough 20.7 ug/mL
[2020-11-22] MEDS: Carvedilol 6.25 MG TAB PO SCH ×3 (01:27→20:51)
[2020-11-22] MEDS: Propofol 1,000 MG/100 ML VIAL IV PRN (02:22)
[2020-11-22] MEDS: Acetaminophen 650 MG/20.3 ML UDCUP PO PRN ×3 (02:22→21:25)
[2020-11-22] MEDS: D5 1/2 NS w/20 mEq KCL 1,000 ML IV SCH (02:23)
[2020-11-22 04:30] LABS: ALT (SGPT) Less than 7 U/L (8-55); AST (SGOT) 14 U/L (5-34); Albumin 2.2 g/dL (3.5-5.0); Alkaline Phosphatase 106 U/L (40-110); Anion Gap 14 mmol/L (10-20); BUN (Urea Nitrogen) 31 mg/dL (8.9-20.6); Bilirubin, Total 1.3 mg/dL (0.2-1.2); Calc. Creatinine Clearance 51 mL/min (70-130); Carbon Dioxide 21 mmol/L (22-29); Chloride 104 mmol/L (98-107); Globulin 3.4 g/dL (2.4-3.5); Glucose 190 mg/dL (70-105); Phosphorus 5.1 mg/dL (2.3-4.7); Potassium 4.2 mmol/L (3.5-5.1); Protein, Total 5.6 g/dL (6.0-8.3); Sodium 135 mmol/L (136-145)
[2020-11-22] MEDS: Insulin Regular 300 UNITS/3 ML VIAL SC PRN ×4 (04:43→23:31)
[2020-11-22 05:33] LABS: Band 19 % (5-11); Lymphocytes 9 % (21-51); MDiff Complete? YES; Monocytes 2 % (0-10); Neutrophil 70 % (42-75)
[2020-11-22] MEDS ORDERED: Magnesium 2 GM/50 ML 2 GM in Premix Bag 1 BAG IVPB SCH (05:45)
[2020-11-22 06:26] LABS: Hemoglobin 8.8 g/dL (14.0-18.0); Mean Corpuscular HGB CONC 36.6 g/dL (32.0-36.0); Mean Corpuscular Hemoglobin 31.8 pg (27.0-31.0); Mean Corpuscular Volume 87.1 fL (78.0-98.0); Platelet Count 181 thou/uL (130-400); RBC Distribution Width 12.8 % (11.5-14.5); Red Blood Cell (RBC) Count 2.77 mill/uL (4.70-6.10); White Blood Cell (WBC) Count 25.6 thou/uL (4.8-10.8)
[2020-11-22 06:52] LABS: Actual Bicarbonate (HCO3a) 20.8 mEq/L (22-28); CO2 Tension 32.2 mmHg (35.0-45.0); Calcium, Ionized (arterial) 1.12 mmol/L (1.12-1.30); Carboxyhemoglobin (COHb) 0.1 gm% (0.0-3.0); Hemoglobin (Hb) 8.7 g/dL (14.0-18.0); O2 Tension (PaO2), arterial 60.8 mmHg (80.0-100.0); Potassium - ABG Lab 3.78 mmol/L (3.70-5.30); pH, Arterial 7.43 (7.35-7.45)
[2020-11-22 06:53] LABS: Puncture Site LRA
[2020-11-22] MEDS: Enoxaparin Sodium 30 MG/0.3 ML SYRINGE SC SCH (09:11)
[2020-11-22] MEDS: Lactated Ringer's 1,000 ML IV SCH ×2 (09:11→20:54)
[2020-11-22] MEDS: Amlodipine 10 MG TAB PO SCH (09:12)
[2020-11-22] MEDS: Multivit, Therapeutic 1 TAB PO SCH (09:12)
[2020-11-22] MEDS: Thiamine 100 MG TAB PO SCH (09:12)
[2020-11-22] MEDS: Folic Acid 1 MG TAB PO SCH (09:12)
[2020-11-22] MEDS: levETIRAcetam in NS 1,500 MG in Premix Bag 1 BAG IVPB SCH ×2 (09:14→20:51)
[2020-11-22] MEDS: Vancomycin HCl 750 MG in Sodium Chloride 0.9% 250 ML 250 ML IVPB SCH ×2 (11:12→23:30)
[2020-11-22] MEDS: MEROPENEM 1 GM/50 ML 1 GM in Premix Bag 1 BAG IVPB SCH (17:24)
[2020-11-22] MEDS: Pantoprazole 40 MG VIAL IVP SCH (20:50)
[2020-11-22] MEDS ORDERED: Cefepime 2 GM in Sodium Chloride 0.9% 100 ML IVPB SCH (21:00)
[2020-11-23] MEDS: Ondansetron PF 4 MG/2 ML Vial IVP PRN ×2 (02:11→08:49)
[2020-11-23 04:35] LABS: ALT (SGPT) Less than 7 U/L (8-55); AST (SGOT) 13 U/L (5-34); Alkaline Phosphatase 115 U/L (40-110); Anion Gap 13 mmol/L (10-20); BUN (Urea Nitrogen) 45 mg/dL (8.9-20.6); Band 8 % (5-11); Bilirubin, Total 0.8 mg/dL (0.2-1.2); Calc. Creatinine Clearance 57 mL/min (70-130); Calcium 8.3 mg/dL (7.8-10.44); Carbon Dioxide 20 mmol/L (22-29); Chloride 103 mmol/L (98-107); Globulin 3.6 g/dL (2.4-3.5); Glucose 253 mg/dL (70-105); Hemoglobin 7.9 g/dL (14.0-18.0); Lymphocytes 8 % (21-51); MDiff Complete? YES; Mean Corpuscular HGB CONC 33.8 g/dL (32.0-36.0); Mean Corpuscular Hemoglobin 29.4 pg (27.0-31.0); Mean Corpuscular Volume 86.9 fL (78.0-98.0); Mean Platelet Volume 7.1 fL (7.4-10.4); Monocytes 5 % (0-10); Neutrophil 79 % (42-75); Platelet Count 154 thou/uL (130-400); Potassium 3.9 mmol/L (3.5-5.1); Protein, Total 5.6 g/dL (6.0-8.3); RBC Distribution Width 12.3 % (11.5-14.5); Red Blood Cell (RBC) Count 2.68 mill/uL (4.70-6.10); Sodium 132 mmol/L (136-145); Vacuoles SLIGHT; White Blood Cell (WBC) Count 20.2 thou/uL (4.8-10.8)
[2020-11-23] MEDS: MEROPENEM 1 GM/50 ML 1 GM in Premix Bag 1 BAG IVPB SCH ×2 (05:05→16:16)
[2020-11-23] MEDS: Insulin Regular 300 UNITS/3 ML VIAL SC PRN ×3 (05:05→16:18)
[2020-11-23 07:02] LABS: Actual Bicarbonate (HCO3a) 20.4 mEq/L (22-28); Base Excess (BEa) -2.8 mEq/L (-2.0 to +3.0); CO2 Tension 28.7 mmHg (35.0-45.0); Carboxyhemoglobin (COHb) 0.6 gm% (0.0-3.0); Hemoglobin (Hb) 7.8 g/dL (14.0-18.0); O2 Tension (PaO2), arterial 129.2 mmHg (80.0-100.0); Potassium - ABG Lab 3.63 mmol/L (3.70-5.30); pH, Arterial 7.47 (7.35-7.45)
[2020-11-23 07:05] LABS: ALV-art Gradient 191.425 mmHg (0-20); Puncture Site LRA
[2020-11-23] MEDS: Enoxaparin Sodium 30 MG/0.3 ML SYRINGE SC SCH (08:25)
[2020-11-23] MEDS: levETIRAcetam in NS 1,500 MG in Premix Bag 1 BAG IVPB SCH ×2 (08:31→20:20)
[2020-11-23] MEDS: Carvedilol 6.25 MG TAB PO SCH ×2 (08:43→20:19)
[2020-11-23] MEDS: Thiamine 100 MG TAB PO SCH (08:43)
[2020-11-23] MEDS: Folic Acid 1 MG TAB PO SCH (08:43)
[2020-11-23] MEDS: Multivit, Therapeutic 1 TAB PO SCH (08:44)
[2020-11-23] MEDS: Amlodipine 10 MG TAB PO SCH (10:09)
[2020-11-23] MEDS: Lactated Ringer's 1,000 ML IV SCH (10:35)
[2020-11-23 12:46] LABS: Vancomycin, Trough 24.9 ug/mL
[2020-11-23] MEDS ORDERED: Vancomycin HCl 500 MG in Sodium Chloride 0.9% 100 ML IVPB SCH (13:00)
[2020-11-23] MEDS: Propofol 1,000 MG/100 ML VIAL IV PRN ×2 (16:44→21:52)
[2020-11-23] MEDS: Pantoprazole 40 MG VIAL IVP SCH (20:20)
[2020-11-24] MEDS: Lactated Ringer's 1,000 ML IV SCH ×3 (00:42→23:56)
[2020-11-24] MEDS: Propofol 1,000 MG/100 ML VIAL IV PRN ×5 (01:59→21:56)
[2020-11-24] MEDS: Insulin Regular 300 UNITS/3 ML VIAL SC PRN ×4 (04:19→22:08)
[2020-11-24] MEDS: MEROPENEM 1 GM/50 ML 1 GM in Premix Bag 1 BAG IVPB SCH ×2 (04:42→16:33)
[2020-11-24 04:53] LABS: Hemoglobin 7.7 g/dL (14.0-18.0); Mean Corpuscular Hemoglobin 31.7 pg (27.0-31.0); Mean Corpuscular Volume 88.1 fL (78.0-98.0); Mean Platelet Volume 7.2 fL (7.4-10.4); Platelet Count 193 thou/uL (130-400); RBC Distribution Width 11.9 % (11.5-14.5); Red Blood Cell (RBC) Count 2.43 mill/uL (4.70-6.10); White Blood Cell (WBC) Count 18.2 thou/uL (4.8-10.8)
[2020-11-24 05:05] LABS: AST (SGOT) 12 U/L (5-34); Albumin 2.1 g/dL (3.5-5.0); Alkaline Phosphatase 112 U/L (40-110); Anion Gap 16 mmol/L (10-20); BUN (Urea Nitrogen) 48 mg/dL (8.9-20.6); Bilirubin, Total 0.5 mg/dL (0.2-1.2); Calc. Creatinine Clearance 59 mL/min (70-130); Calcium 8.1 mg/dL (7.8-10.44); Carbon Dioxide 18 mmol/L (22-29); Chloride 104 mmol/L (98-107); Globulin 3.6 g/dL (2.4-3.5); Glucose 214 mg/dL (70-105); Potassium 3.7 mmol/L (3.5-5.1); Protein, Total 5.7 g/dL (6.0-8.3); Sodium 134 mmol/L (136-145)
[2020-11-24 05:31] LABS: ALT (SGPT) 7 U/L (8-55)
[2020-11-24 05:34] LABS: Band 10 % (5-11); Eosinophils 1 % (0-10); Lymphocytes 5 % (21-51); MDiff Complete? YES; Monocytes 4 % (0-10); Neutrophil 80 % (42-75)
[2020-11-24 07:29] LABS: Actual Bicarbonate (HCO3a) 20.1 mEq/L (22-28); Base Excess (BEa) -3.2 mEq/L (-2.0 to +3.0); Calcium, Ionized (arterial) 1.14 mmol/L (1.12-1.30); Carboxyhemoglobin (COHb) 0.7 gm% (0.0-3.0); O2 Tension (PaO2), arterial 104.2 mmHg (80.0-100.0); Potassium - ABG Lab 3.56 mmol/L (3.70-5.30); pH, Arterial 7.46 (7.35-7.45)
[2020-11-24 07:34] LABS: Puncture Site LRA
[2020-11-24] MEDS: Enoxaparin Sodium 30 MG/0.3 ML SYRINGE SC SCH (09:40)
[2020-11-24] MEDS: Folic Acid 1 MG TAB PO SCH (09:41)
[2020-11-24] MEDS: Amlodipine 10 MG TAB PO SCH (09:41)
[2020-11-24] MEDS: Multivit, Therapeutic 1 TAB PO SCH (09:41)
[2020-11-24] MEDS: Carvedilol 6.25 MG TAB PO SCH ×2 (09:41→21:16)
[2020-11-24] MEDS: Thiamine 100 MG TAB PO SCH (09:41)
[2020-11-24] MEDS: levETIRAcetam in NS 1,500 MG in Premix Bag 1 BAG IVPB SCH ×2 (09:42→21:16)
[2020-11-24 12:49] LABS: Vancomycin, Random 15.2 ug/mL (See Comment)
[2020-11-24] MEDS ORDERED: VANCOMYCIN 1.25 GM/250 ML BAG 1.25 GM in Premix Bag 1 BAG IVPB SCH (16:00)
[2020-11-24] MEDS: Pantoprazole 40 MG VIAL IVP SCH (21:16)
[2020-11-25] MEDS: Propofol 1,000 MG/100 ML VIAL IV PRN (02:53)
[2020-11-25] MEDS: Insulin Regular 300 UNITS/3 ML VIAL SC PRN ×3 (04:04→16:54)
[2020-11-25 04:55] LABS: ALT (SGPT) 7 U/L (8-55); AST (SGOT) 11 U/L (5-34); Albumin 2.1 g/dL (3.5-5.0); Alkaline Phosphatase 110 U/L (40-110); Anion Gap 11 mmol/L (10-20); BUN (Urea Nitrogen) 39 mg/dL (8.9-20.6); Bilirubin, Total 0.4 mg/dL (0.2-1.2); Calc. Creatinine Clearance 81 mL/min (70-130); Calcium 8.2 mg/dL (7.8-10.44); Carbon Dioxide 22 mmol/L (22-29); Chloride 106 mmol/L (98-107); Globulin 3.8 g/dL (2.4-3.5); Glucose 219 mg/dL (70-105); Potassium 3.7 mmol/L (3.5-5.1); Protein, Total 5.9 g/dL (6.0-8.3); Sodium 135 mmol/L (136-145)
[2020-11-25 04:57] LABS: Band 1 % (5-11); Eosinophils 3 % (0-10); Hemoglobin 7.6 g/dL (14.0-18.0); Hypochromia SLIGHT = 6-15 cells (100X) (0-5/hpf); Lymphocytes 4 % (21-51); MDiff Complete? YES; Mean Corpuscular HGB CONC 34.3 g/dL (32.0-36.0); Mean Corpuscular Hemoglobin 29.7 pg (27.0-31.0); Mean Corpuscular Volume 86.5 fL (78.0-98.0); Mean Platelet Volume 6.6 fL (7.4-10.4); Monocytes 4 % (0-10); Neutrophil 88 % (42-75); Platelet Count 229 thou/uL (130-400); Platelet Morphology Comment Appears Adequate; RBC Distribution Width 11.9 % (11.5-14.5); Red Blood Cell (RBC) Count 2.55 mill/uL (4.70-6.10); White Blood Cell (WBC) Count 13.6 thou/uL (4.8-10.8)
[2020-11-25] MEDS: MEROPENEM 1 GM/50 ML 1 GM in Premix Bag 1 BAG IVPB SCH ×2 (05:42→16:56)
[2020-11-25 07:30] LABS: Base Excess (BEa) -2.4 mEq/L (-2.0 to +3.0); CO2 Tension 30.1 mmHg (35.0-45.0); Calcium, Ionized (arterial) 1.16 mmol/L (1.12-1.30); Carboxyhemoglobin (COHb) 0.1 gm% (0.0-3.0); O2 Tension (PaO2), arterial 92.4 mmHg (80.0-100.0); Potassium - ABG Lab 3.58 mmol/L (3.70-5.30); pH, Arterial 7.46 (7.35-7.45)
[2020-11-25 07:34] LABS: ALV-art Gradient 155.175 mmHg (0-20); Puncture Site LRA
[2020-11-25] MEDS ORDERED: DC Sedation Protocol FS ONE (07:39)
[2020-11-25] MEDS: Multivit, Therapeutic 1 TAB PO SCH (07:54)
[2020-11-25] MEDS: Carvedilol 6.25 MG TAB PO SCH ×2 (07:55→20:45)
[2020-11-25] MEDS: Amlodipine 10 MG TAB PO SCH (07:55)
[2020-11-25] MEDS: Folic Acid 1 MG TAB PO SCH (07:55)
[2020-11-25] MEDS: Thiamine 100 MG TAB PO SCH (07:56)
[2020-11-25] MEDS: levETIRAcetam in NS 1,500 MG in Premix Bag 1 BAG IVPB SCH ×2 (08:10→20:46)
[2020-11-25] MEDS: Enoxaparin Sodium 40 MG/0.4 ML SYRINGE SC SCH (08:11)
[2020-11-25] MEDS: Lactated Ringer's 1,000 ML IV SCH (18:06)
[2020-11-25] MEDS: Pantoprazole 40 MG VIAL IVP SCH (20:46)
[2020-11-26] MEDS: Acetaminophen 650 MG/20.3 ML UDCUP PO PRN (00:13)
[2020-11-26 04:17] LABS: ALT (SGPT) 8 U/L (8-55); AST (SGOT) 16 U/L (5-34); Albumin 2.2 g/dL (3.5-5.0); Alkaline Phosphatase 113 U/L (40-110); Anion Gap 18 mmol/L (10-20); BUN (Urea Nitrogen) 27 mg/dL (8.9-20.6); Bilirubin, Total 0.6 mg/dL (0.2-1.2); Calc. Creatinine Clearance 101 mL/min (70-130); Calcium 8.2 mg/dL (7.8-10.44); Carbon Dioxide 18 mmol/L (22-29); Chloride 107 mmol/L (98-107); Glucose 169 mg/dL (70-105); Potassium 3.7 mmol/L (3.5-5.1); Protein, Total 6.2 g/dL (6.0-8.3); Sodium 139 mmol/L (136-145)
[2020-11-26] MEDS: MEROPENEM 1 GM/50 ML 1 GM in Premix Bag 1 BAG IVPB SCH ×2 (04:37→17:30)
[2020-11-26] MEDS: Lactated Ringer's 1,000 ML IV SCH (04:38)
[2020-11-26 04:55] LABS: Hemoglobin 8.5 g/dL (14.0-18.0); Mean Corpuscular Volume 85.7 fL (78.0-98.0); Mean Platelet Volume 5.9 fL (7.4-10.4); Platelet Count 293 thou/uL (130-400); Red Blood Cell (RBC) Count 2.85 mill/uL (4.70-6.10); White Blood Cell (WBC) Count 13.3 thou/uL (4.8-10.8)
[2020-11-26 05:21] LABS: Band 5 % (5-11); Eosinophils 2 % (0-10); Lymphocytes 10 % (21-51); MDiff Complete? YES; Monocytes 9 % (0-10); Neutrophil 74 % (42-75); Platelet Morphology Comment Appears Adequate
[2020-11-26] MEDS: levETIRAcetam in NS 1,500 MG in Premix Bag 1 BAG IVPB SCH ×2 (08:06→22:37)
[2020-11-26] MEDS: Carvedilol 6.25 MG TAB PO SCH ×2 (09:29→22:37)
[2020-11-26] MEDS: Amlodipine 10 MG TAB PO SCH (09:30)
[2020-11-26] MEDS: Enoxaparin Sodium 40 MG/0.4 ML SYRINGE SC SCH (09:31)
[2020-11-26] MEDS: Thiamine 100 MG TAB PO SCH (11:33)
[2020-11-26] MEDS: Folic Acid 1 MG TAB PO SCH (11:33)
[2020-11-26] MEDS: Multivit, Therapeutic 1 TAB PO SCH (11:33)
[2020-11-26] MEDS ORDERED: Loperamide HCl 2 MG CAP PO PRN (21:18)
[2020-11-26] MEDS: Pantoprazole 40 MG VIAL IVP SCH (22:37)
[2020-11-27] MEDS: hydrALAZINE 20 MG/ML VIAL SLOW IVP PRN (00:17)
[2020-11-27] MEDS: Acetaminophen 650 MG/20.3 ML UDCUP PO PRN ×2 (00:18→20:21)
[2020-11-27 03:59] LABS: Band 1 % (5-11); Eosinophils 3 % (0-10); Hemoglobin 7.6 g/dL (14.0-18.0); Hypochromia SLIGHT = 6-15 cells (100X) (0-5/hpf); Lymphocytes 10 % (21-51); MDiff Complete? YES; Mean Corpuscular Volume 86.2 fL (78.0-98.0); Mean Platelet Volume 5.7 fL (7.4-10.4); Monocytes 4 % (0-10); Neutrophil 82 % (42-75); Platelet Count 319 thou/uL (130-400); Platelet Morphology Comment Appears Adequate; RBC Distribution Width 12.2 % (11.5-14.5); Red Blood Cell (RBC) Count 2.46 mill/uL (4.70-6.10)
[2020-11-27 04:14] LABS: ALT (SGPT) 7 U/L (8-55); AST (SGOT) 12 U/L (5-34); Albumin 1.9 g/dL (3.5-5.0); Alkaline Phosphatase 86 U/L (40-110); Anion Gap 12 mmol/L (10-20); BUN (Urea Nitrogen) 25 mg/dL (8.9-20.6); Bilirubin, Total 0.3 mg/dL (0.2-1.2); Calc. Creatinine Clearance 93 mL/min (70-130); Carbon Dioxide 21 mmol/L (22-29); Chloride 108 mmol/L (98-107); Globulin 3.6 g/dL (2.4-3.5); Glucose 235 mg/dL (70-105); Potassium 3.7 mmol/L (3.5-5.1); Protein, Total 5.5 g/dL (6.0-8.3); Sodium 137 mmol/L (136-145)
[2020-11-27] MEDS: Lactated Ringer's 1,000 ML IV SCH (05:56)
[2020-11-27] MEDS: Insulin Regular 300 UNITS/3 ML VIAL SC PRN ×3 (07:09→17:17)
[2020-11-27] MEDS: Amlodipine 10 MG TAB PO SCH (08:49)
[2020-11-27] MEDS: Folic Acid 1 MG TAB PO SCH (08:49)
[2020-11-27] MEDS: Carvedilol 6.25 MG TAB PO SCH ×2 (08:50→20:21)
[2020-11-27] MEDS: Thiamine 100 MG TAB PO SCH (08:50)
[2020-11-27] MEDS: Multivit, Therapeutic 1 TAB PO SCH (08:50)
[2020-11-27] MEDS: Enoxaparin Sodium 40 MG/0.4 ML SYRINGE SC SCH (08:51)
[2020-11-27] MEDS: MEROPENEM 1 GM/50 ML 1 GM in Premix Bag 1 BAG IVPB SCH ×2 (10:20→17:17)
[2020-11-27] MEDS: levETIRAcetam in NS 1,500 MG in Premix Bag 1 BAG IVPB SCH ×2 (10:20→20:21)
[2020-11-27] MEDS: Pantoprazole 40 MG VIAL IVP SCH (20:21)
[2020-11-28] MEDS: Acetaminophen 650 MG/20.3 ML UDCUP PO PRN ×2 (04:48→16:54)
[2020-11-28] MEDS: MEROPENEM 1 GM/50 ML 1 GM in Premix Bag 1 BAG IVPB SCH (04:49)
[2020-11-28] MEDS: Folic Acid 1 MG TAB PO SCH (08:41)
[2020-11-28 08:42] LABS: Hemoglobin 7.8 g/dL (14.0-18.0); Mean Corpuscular HGB CONC 36.2 g/dL (32.0-36.0); Mean Corpuscular Hemoglobin 31.2 pg (27.0-31.0); Mean Corpuscular Volume 86.1 fL (78.0-98.0); Mean Platelet Volume 5.6 fL (7.4-10.4); Platelet Count 370 thou/uL (130-400); Red Blood Cell (RBC) Count 2.49 mill/uL (4.70-6.10); White Blood Cell (WBC) Count 7.7 thou/uL (4.8-10.8)
[2020-11-28] MEDS: Thiamine 100 MG TAB PO SCH (08:42)
[2020-11-28] MEDS: levETIRAcetam in NS 1,500 MG in Premix Bag 1 BAG IVPB SCH ×2 (08:42→20:12)
[2020-11-28] MEDS: Multivit, Therapeutic 1 TAB PO SCH (08:42)
[2020-11-28] MEDS: Amlodipine 10 MG TAB PO SCH (08:42)
[2020-11-28] MEDS: Carvedilol 6.25 MG TAB PO SCH ×2 (08:42→20:12)
[2020-11-28] MEDS: Enoxaparin Sodium 40 MG/0.4 ML SYRINGE SC SCH (08:42)
[2020-11-28 08:54] LABS: ALT (SGPT) 8 U/L (8-55); AST (SGOT) 10 U/L (5-34); Alkaline Phosphatase 79 U/L (40-110); Anion Gap 13 mmol/L (10-20); BUN (Urea Nitrogen) 20 mg/dL (8.9-20.6); Bilirubin, Total 0.4 mg/dL (0.2-1.2); Calc. Creatinine Clearance 116 mL/min (70-130); Calcium 7.7 mg/dL (7.8-10.44); Carbon Dioxide 22 mmol/L (22-29); Chloride 106 mmol/L (98-107); Globulin 3.5 g/dL (2.4-3.5); Glucose 216 mg/dL (70-105); Potassium 3.8 mmol/L (3.5-5.1); Protein, Total 5.5 g/dL (6.0-8.3); Sodium 137 mmol/L (136-145)
[2020-11-28 09:42] LABS: Band 2 % (5-11); Eosinophils 6 % (0-10); Lymphocytes 16 % (21-51); MDiff Complete? YES; Monocytes 14 % (0-10); Neutrophil 61 % (42-75); Platelet Morphology Comment Appears Adequate; Polychromasia SLIGHT = 2-3 cells (100X) (0-2/hpf)
[2020-11-28 10:59] VITALS: BMI 32.0
[2020-11-28] MEDS ORDERED: Vancomycin HCl 25 MG/ML Oral PO SCH (12:00)
[2020-11-28] MEDS: Insulin Regular 300 UNITS/3 ML VIAL SC PRN ×3 (12:02→20:19)
[2020-11-28] MEDS: Pantoprazole 40 MG VIAL IVP SCH (20:12)
[2020-11-29] MEDS: Acetaminophen 650 MG/20.3 ML UDCUP PO PRN (02:05)
[2020-11-29 04:12] LABS: ALT (SGPT) 7 U/L (8-55); AST (SGOT) 12 U/L (5-34); Albumin 2.1 g/dL (3.5-5.0); Alkaline Phosphatase 86 U/L (40-110); Anion Gap 12 mmol/L (10-20); BUN (Urea Nitrogen) 16 mg/dL (8.9-20.6); Band 5 % (5-11); Bilirubin, Total 0.3 mg/dL (0.2-1.2); Calc. Creatinine Clearance 121 mL/min (70-130); Calcium 7.7 mg/dL (7.8-10.44); Carbon Dioxide 23 mmol/L (22-29); Chloride 107 mmol/L (98-107); Eosinophils 1 % (0-10); Globulin 3.7 g/dL (2.4-3.5); Glucose 240 mg/dL (70-105); Hemoglobin 7.7 g/dL (14.0-18.0); Hypochromia SLIGHT = 6-15 cells (100X) (0-5/hpf); Lymphocytes 26 % (21-51); MDiff Complete? YES; Mean Corpuscular HGB CONC 36.4 g/dL (32.0-36.0); Mean Corpuscular Volume 85.1 fL (78.0-98.0); Mean Platelet Volume 5.5 fL (7.4-10.4); Monocytes 7 % (0-10); Neutrophil 61 % (42-75); Platelet Count 383 thou/uL (130-400); Platelet Morphology Comment Appears Adequate; Polychromasia SLIGHT = 2-3 cells (100X) (0-2/hpf); Potassium 3.7 mmol/L (3.5-5.1); Protein, Total 5.8 g/dL (6.0-8.3); RBC Distribution Width 12.2 % (11.5-14.5); Red Blood Cell (RBC) Count 2.47 mill/uL (4.70-6.10); Sodium 138 mmol/L (136-145); White Blood Cell (WBC) Count 7.1 thou/uL (4.8-10.8)
[2020-11-29] MEDS: Insulin Regular 300 UNITS/3 ML VIAL SC PRN (06:15)
[2020-11-29] MEDS: Folic Acid 1 MG TAB PO SCH (08:56)
[2020-11-29] MEDS: Multivit, Therapeutic 1 TAB PO SCH (08:56)
[2020-11-29] MEDS: Thiamine 100 MG TAB PO SCH (08:56)
[2020-11-29] MEDS: Enoxaparin Sodium 40 MG/0.4 ML SYRINGE SC SCH (08:56)
[2020-11-29] MEDS: levETIRAcetam in NS 1,500 MG in Premix Bag 1 BAG IVPB SCH (08:58)
[2020-11-29] MEDS: Carvedilol 6.25 MG TAB PO SCH (08:58)
[2020-11-29] MEDS: Amlodipine 10 MG TAB PO SCH (08:58)
[2020-11-29 09:01] VITALS: BP 167/81; TEMP 98
== END 2020-11-29 17:06 | disposition home or self-care (01) | DRG 870 ==
LOC: CCU 07:10 → IMCU/EMU 11-26 15:25 → ONC 11-27 18:55
PROVIDERS: ADMIT Student in an Organized Health Care Education/Training Program; ATTEND Internal Medicine
PROC: 0BH17EZ Insertion of Endotracheal Airway into Trachea, Via Natural or Artificial Opening (ICD-10-PCS; principal; 2020-11-20)
PROC: 5A1955Z Respiratory Ventilation, Greater than 96 Consecutive Hours (ICD-10-PCS; 2020-11-20)
PROC: 009U3ZX Drainage of Spinal Canal, Percutaneous Approach, Diagnostic (ICD-10-PCS; 2020-11-20)
DX: A41.9 Sepsis, unspecified organism (principal); J96.00 Acute respiratory failure, unspecified whether with hypoxia or hypercapnia; J69.0 Pneumonitis due to inhalation of food and vomit; G92 Toxic encephalopathy; I16.1 Hypertensive emergency; A04.72 Enterocolitis due to Clostridium difficile, not specified as recurrent; I16.9 Hypertensive crisis, unspecified; R65.20 Severe sepsis without septic shock; G40.909 Epilepsy, unspecified, not intractable, without status epilepticus; B18.2 Chronic viral hepatitis C; R45.1 Restlessness and agitation; K57.30 Diverticulosis of large intestine without perforation or abscess without bleeding; I10 Essential (primary) hypertension; E11.42 Type 2 diabetes mellitus with diabetic polyneuropathy; Z51.5 Encounter for palliative care; K21.9 Gastro-esophageal reflux disease without esophagitis; G43.909 Migraine, unspecified, not intractable, without status migrainosus; E87.6 Hypokalemia; E83.42 Hypomagnesemia; R11.2 Nausea with vomiting, unspecified; R53.83 Other fatigue; G93.89 Other specified disorders of brain; D64.9 Anemia, unspecified; R13.10 Dysphagia, unspecified; Z79.899 Other long term (current) drug therapy; Z79.4 Long term (current) use of insulin; Z90.49 Acquired absence of other specified parts of digestive tract; Z98.890 Other specified postprocedural states; Z86.73 Personal history of transient ischemic attack (TIA), and cerebral infarction without residual deficits; Z87.891 Personal history of nicotine dependence; F15.21 Other stimulant dependence, in remission
CPT/HCPCS: 36415; 36416; 36600; 70450; 71045; 80053; 80202; 82140; 82805; 83735; 83880; 84100; 84145; 84146; 85007; 85027; 86140; 87324; 87328; 87329; 87449; 87493; 93306; 94002; 94003; 95712; 95816; 95819; 95957; C9113; J0360; J0692; J1650; J1815; J1953; J2060; J2185; J2270; J2405; J2704; J3370; J3475; J3480; J3490; J7050; S0028

== ENCOUNTER 2021-01-15 13:25 | Inpatient (IN) | payer SELFPAY ==
[2021-01-15] MEDS ORDERED: Morphine 4 MG/ML VIAL ONE (13:51)
[2021-01-15 14:29] LABS: #Eosinphils 0.9 thou/uL (0.0-0.7); #Lymphocytes 1.8 thou/uL (1.20-3.40); #Monocytes 0.5 thou/uL (0.11-0.59); %Basophils 0.7 % (0.0-1.0); %Eosinophils 12.2 % (0.0-10.0); %Lymphocytes 25.1 % (21.0-51.0); %Monocytes 6.4 % (0.0-10.0); %Neutrophils 55.6 % (42.0-75.0); Hemoglobin 10.5 g/dL (14.0-18.0); Mean Corpuscular HGB CONC 37.2 g/dL (32.0-36.0); Mean Corpuscular Hemoglobin 30.8 pg (27.0-31.0); Mean Corpuscular Volume 82.8 fL (78.0-98.0); Mean Platelet Volume 5.8 fL (7.4-10.4); Platelet Count 201 thou/uL (130-400); RBC Distribution Width 12.5 % (11.5-14.5); White Blood Cell (WBC) Count 7.1 thou/uL (4.8-10.8)
[2021-01-15 14:37] LABS: INR-International Normal Ratio 1.2; Prothrombin Time 15.1 sec (12.0-14.7)
[2021-01-15 14:38] LABS: PTT 38.8 sec (22.9-36.1)
[2021-01-15] MEDS ORDERED: Pantoprazole 40 MG VIAL ONE ×2 (14:46→16:16)
[2021-01-15 14:48] LABS: ALT (SGPT) Less than 7 U/L (8-55); AST (SGOT) 9 U/L (5-34); Alkaline Phosphatase 105 U/L (40-110); Anion Gap 12 mmol/L (10-20); BUN (Urea Nitrogen) 26 mg/dL (8.9-20.6); Bilirubin, Total 1.3 mg/dL (0.2-1.2); Calc. Creatinine Clearance 0 mL/min (70-130); Calcium 8.4 mg/dL (7.8-10.44); Carbon Dioxide 23 mmol/L (22-29); Chloride 103 mmol/L (98-107); Globulin 3.4 g/dL (2.4-3.5); Glucose 282 mg/dL (70-105); Potassium 3.9 mmol/L (3.5-5.1); Protein, Total 6.4 g/dL (6.0-8.3); Sodium 134 mmol/L (136-145)
[2021-01-15 16:01] LABS: Bilirubin Negative (Negative); Blood, Urine 2+ (Negative); Clarity Clear (Clear); Glucose, Urine (Dipstick) Greater than 1000 mg/dL (Negative); Ketone, Urine Negative (Negative); Leukocyte Negative Leu/uL (Negative); Nitrite Negative (Negative); Protein, Urine (Dipstick) 300 mg/dL (Neg-Trace); Specific Gravity, Urine 1.026 (1.002-1.036); Squamous Epithelial 0-3 HPF (0-3); Urobilinogen Normal mg/dL (Less than 2); WBC/HPF 0-3 HPF (0-3)
[2021-01-15 16:02] LABS: Bacteria/HPF 1+ HPF (None Seen)
[2021-01-15] MEDS ORDERED: cefTRIAXone\\ROCEPHIN 1 GM VIAL ONE (16:16)
[2021-01-15] MEDS ORDERED: levETIRAcetam 500 MG/100 ML PREMIX BAG ONE (16:16)
[2021-01-15] MEDS ORDERED: Pantoprazole 80 MG, Admixture Fee 1 EACH in Sodium Chloride 0.9% 100 ML IVPB SCH (17:00)
[2021-01-15 17:50] LABS: Troponin I Less than 0.010 ng/mL (< 0.028)
[2021-01-15] MEDS ORDERED: Acetaminophen 325 MG TAB PO PRN (19:15)
[2021-01-15] MEDS ORDERED: Ondansetron ODT 4 MG TAB SL PRN (19:15)
[2021-01-15] MEDS ORDERED: Ondansetron PF 4 MG/2 ML Vial IVP PRN (19:15)
[2021-01-15] MEDS ORDERED: Dextrose 5% in Water 1,000 ML IV PRN (19:17)
[2021-01-15] MEDS ORDERED: HumaLOG 300 UNITS/3 ML VIAL SC PRN (19:17)
[2021-01-15] MEDS ORDERED: Dextrose 50% Abboject 50 ML SYRINGE SLOW IVP PRN (19:17)
[2021-01-15] MEDS ORDERED: Pantoprazole 80 MG in Sodium Chloride 0.9% 100 ML IVPB SCH (19:22)
[2021-01-15 20:36] LABS: Troponin I 0.019 ng/mL (< 0.028)
[2021-01-15] MEDS: Gabapentin 300 MG CAP PO SCH (20:57)
[2021-01-15] MEDS: levETIRAcetam 500 MG TAB PO SCH (20:58)
[2021-01-15] MEDS: Sodium Chloride 0.9% 1,000 ML IV SCH (21:02)
[2021-01-16] MEDS ORDERED: Pantoprazole 80 MG, Admixture Fee 1 EACH in Sodium Chloride 0.9% 100 ML IVPB SCH (01:45)
[2021-01-16 05:32] LABS: Hemoglobin A1c 6.8 % (4.0-6.0)
[2021-01-16 05:34] LABS: #Monocytes 0.4 thou/uL (0.11-0.59); #Neutrophils 3.1 thou/uL (1.40-6.50); %Basophils 0.5 % (0.0-1.0); %Eosinophils 14.9 % (0.0-10.0); %Lymphocytes 30.9 % (21.0-51.0); %Monocytes 6.1 % (0.0-10.0); %Neutrophils 47.5 % (42.0-75.0); Hemoglobin 9.9 g/dL (14.0-18.0); Mean Corpuscular HGB CONC 36.8 g/dL (32.0-36.0); Mean Corpuscular Hemoglobin 30.6 pg (27.0-31.0); Mean Corpuscular Volume 83.2 fL (78.0-98.0); Platelet Count 210 thou/uL (130-400); RBC Distribution Width 12.2 % (11.5-14.5); Red Blood Cell (RBC) Count 3.24 mill/uL (4.70-6.10); White Blood Cell (WBC) Count 6.5 thou/uL (4.8-10.8)
[2021-01-16 06:14] LABS: Ferritin 154.43 ng/mL (22-322); Thyroid Stimulating Hormone 1.1313 uIU/mL (0.35-4.94)
[2021-01-16] MEDS ORDERED: Morphine 2 MG/ML VIAL SLOW IVP SCH (06:45)
[2021-01-16] MEDS: Sodium Chloride 0.9% 1,000 ML IV SCH ×2 (07:01→16:28)
[2021-01-16] MEDS ORDERED: PROPOFOL 200 MG/20 ML VIAL ONE (09:35)
[2021-01-16] MEDS ORDERED: Labetalol HCl 100 MG/20 ML VIAL ONE (09:35)
[2021-01-16] MEDS ORDERED: Fentanyl 100 MCG/2 ML VIAL ONE (09:39)
[2021-01-16] MEDS ORDERED: Ondansetron HCl/PF 4 MG/2 ML Vial IVP PRN (09:55)
[2021-01-16] MEDS ORDERED: Promethazine HCl 25 MG/ML VIAL IM PRN (09:55)
[2021-01-16] MEDS ORDERED: Promethazine HCl 25 MG/ML VIAL IVPB PRN (09:55)
[2021-01-16] MEDS: levETIRAcetam 500 MG TAB PO SCH ×2 (11:34→20:23)
[2021-01-16] MEDS: Zinc Sulfate 220 MG CAP PO SCH (11:34)
[2021-01-16] MEDS: Gabapentin 300 MG CAP PO SCH ×3 (11:35→20:23)
[2021-01-16] MEDS: Thiamine 100 MG TAB PO SCH (11:35)
[2021-01-16 11:56] LABS: Anion Gap 11 mmol/L (10-20); BUN (Urea Nitrogen) 22 mg/dL (8.9-20.6); Calc. Creatinine Clearance 66 mL/min (70-130); Calcium 8.8 mg/dL (7.8-10.44); Carbon Dioxide 24 mmol/L (22-29); Chloride 109 mmol/L (98-107); Glucose 157 mg/dL (70-105); Sodium 140 mmol/L (136-145)
[2021-01-16] MEDS ORDERED: GoLYTELY 4,000 ml Bottle PO SCH (17:00)
[2021-01-16] MEDS: Acetaminophen 325 MG TAB PO PRN (22:10)
[2021-01-17] MEDS: hydrALAZINE 20 MG/ML VIAL SLOW IVP PRN (00:51)
[2021-01-17] MEDS: Sodium Chloride 0.9% 1,000 ML IV SCH ×2 (02:56→11:34)
[2021-01-17] MEDS ORDERED: Labetalol HCl 100 MG/20 ML VIAL SLOW IVP PRN (03:28)
[2021-01-17] MEDS: Morphine 2 MG/ML VIAL SLOW IVP PRN (04:34)
[2021-01-17 06:16] LABS: #Lymphocytes 1.6 thou/uL (1.20-3.40); #Monocytes 0.4 thou/uL (0.11-0.59); #Neutrophils 3.9 thou/uL (1.40-6.50); %Basophils 0.6 % (0.0-1.0); %Lymphocytes 22.6 % (21.0-51.0); %Monocytes 5.9 % (0.0-10.0); Hemoglobin 9.7 g/dL (14.0-18.0); Mean Corpuscular Hemoglobin 30.7 pg (27.0-31.0); Mean Corpuscular Volume 82.9 fL (78.0-98.0); Mean Platelet Volume 6.2 fL (7.4-10.4); Platelet Count 196 thou/uL (130-400); RBC Distribution Width 12.4 % (11.5-14.5); Red Blood Cell (RBC) Count 3.15 mill/uL (4.70-6.10); White Blood Cell (WBC) Count 6.9 thou/uL (4.8-10.8)
[2021-01-17 06:30] LABS: ALT (SGPT) Less than 7 U/L (8-55); AST (SGOT) 10 U/L (5-34); Albumin 2.9 g/dL (3.5-5.0); Alkaline Phosphatase 97 U/L (40-110); Anion Gap 14 mmol/L (10-20); BUN (Urea Nitrogen) 15 mg/dL (8.9-20.6); Bilirubin, Total 1.4 mg/dL (0.2-1.2); Calc. Creatinine Clearance 83 mL/min (70-130); Calcium 8.5 mg/dL (7.8-10.44); Carbon Dioxide 21 mmol/L (22-29); Chloride 107 mmol/L (98-107); Globulin 3.3 g/dL (2.4-3.5); Glucose 154 mg/dL (70-105); Potassium 3.5 mmol/L (3.5-5.1); Protein, Total 6.2 g/dL (6.0-8.3); Sodium 138 mmol/L (136-145)
[2021-01-17] MEDS: Amlodipine 10 MG TAB PO SCH (11:31)
[2021-01-17] MEDS: Gabapentin 300 MG CAP PO SCH ×3 (11:32→20:19)
[2021-01-17] MEDS: levETIRAcetam 500 MG TAB PO SCH ×2 (11:32→20:19)
[2021-01-17] MEDS: Zinc Sulfate 220 MG CAP PO SCH (11:34)
[2021-01-17] MEDS: Thiamine 100 MG TAB PO SCH (11:34)
[2021-01-17] MEDS: Acetaminophen 325 MG TAB PO PRN (17:43)
[2021-01-18] MEDS: Sodium Chloride 0.9% 1,000 ML IV SCH ×3 (02:26→21:12)
[2021-01-18] MEDS: hydrALAZINE 20 MG/ML VIAL SLOW IVP PRN ×2 (04:24→21:01)
[2021-01-18] MEDS: Acetaminophen 325 MG TAB PO PRN ×2 (04:25→15:03)
[2021-01-18] MEDS: Ondansetron ODT 4 MG TAB PO PRN ×2 (04:25→15:03)
[2021-01-18] MEDS: Zinc Sulfate 220 MG CAP PO SCH (09:15)
[2021-01-18] MEDS: Gabapentin 300 MG CAP PO SCH ×3 (09:15→21:02)
[2021-01-18] MEDS: Amlodipine 10 MG TAB PO SCH (09:15)
[2021-01-18] MEDS: levETIRAcetam 500 MG TAB PO SCH ×2 (09:15→21:02)
[2021-01-18] MEDS: Thiamine 100 MG TAB PO SCH (09:15)
[2021-01-18] MEDS: Morphine 2 MG/ML VIAL SLOW IVP PRN ×2 (09:16→21:00)
[2021-01-18 17:30] LABS: Anion Gap 8 mmol/L (10-20); BUN (Urea Nitrogen) 8 mg/dL (8.9-20.6); Calc. Creatinine Clearance 89 mL/min (70-130); Calcium 8.1 mg/dL (7.8-10.44); Carbon Dioxide 23 mmol/L (22-29); Chloride 109 mmol/L (98-107); Glucose 196 mg/dL (70-105); Potassium 3.9 mmol/L (3.5-5.1); Sodium 136 mmol/L (136-145)
[2021-01-18 17:31] LABS: #Basophils 0.1 thou/uL (0.0-0.2); #Eosinphils 0.7 thou/uL (0.0-0.7); #Lymphocytes 1.7 thou/uL (1.20-3.40); #Monocytes 0.4 thou/uL (0.11-0.59); #Neutrophils 3.1 thou/uL (1.40-6.50); %Basophils 0.9 % (0.0-1.0); %Eosinophils 12.5 % (0.0-10.0); %Lymphocytes 28.2 % (21.0-51.0); %Monocytes 6.1 % (0.0-10.0); %Neutrophils 52.3 % (42.0-75.0); Hemoglobin 9.7 g/dL (14.0-18.0); Mean Corpuscular HGB CONC 36.5 g/dL (32.0-36.0); Mean Corpuscular Hemoglobin 30.3 pg (27.0-31.0); Mean Corpuscular Volume 83.2 fL (78.0-98.0); Mean Platelet Volume 5.9 fL (7.4-10.4); Platelet Count 194 thou/uL (130-400); RBC Distribution Width 12.4 % (11.5-14.5); Red Blood Cell (RBC) Count 3.19 mill/uL (4.70-6.10)
[2021-01-19] MEDS ORDERED: Simethicone Chewable 80 MG TAB PO PRN (00:44)
[2021-01-19] MEDS: Sodium Chloride 0.9% 1,000 ML IV SCH (05:48)
[2021-01-19] MEDS ORDERED: Lisinopril 10 MG TAB PO SCH (09:00)
[2021-01-19] MEDS ORDERED: Amlodipine 10 MG TAB PO SCH (09:00)
[2021-01-19] MEDS ORDERED: Aspirin 81 mg Enteric Coated Tablet PO SCH (09:00)
[2021-01-19] MEDS: Gabapentin 300 MG CAP PO SCH (09:03)
[2021-01-19] MEDS: levETIRAcetam 500 MG TAB PO SCH (09:06)
[2021-01-19] MEDS: Zinc Sulfate 220 MG CAP PO SCH (09:07)
[2021-01-19] MEDS: Thiamine 100 MG TAB PO SCH (09:07)
[2021-01-19] MEDS: Dicyclomine 10 MG CAP PO SCH ×2 (09:12→13:27)
[2021-01-19 12:46] VITALS: BP 162/84; TEMP 98.5
[2021-01-19] MEDS: Acetaminophen 325 MG TAB PO PRN (13:39)
== END 2021-01-19 16:19 | disposition home or self-care (01) | DRG 378 ==
LOC: ERS 13:25 → 2SW 15:46 → OBSVTOIN 01-16 11:27
PROVIDERS: ADMIT Internal Medicine; ATTEND Internal Medicine
PROC: 0DB78ZX Excision of Stomach, Pylorus, Via Natural or Artificial Opening Endoscopic, Diagnostic (ICD-10-PCS; principal; 2021-01-16)
PROC: 0DBN8ZX Excision of Sigmoid Colon, Via Natural or Artificial Opening Endoscopic, Diagnostic (ICD-10-PCS; 2021-01-17)
DX: K92.0 Hematemesis (principal); N17.9 Acute kidney failure, unspecified; K76.6 Portal hypertension; D62 Acute posthemorrhagic anemia; N18.9 Chronic kidney disease, unspecified; G40.909 Epilepsy, unspecified, not intractable, without status epilepticus; D63.1 Anemia in chronic kidney disease; K29.70 Gastritis, unspecified, without bleeding; K31.89 Other diseases of stomach and duodenum; B18.2 Chronic viral hepatitis C; E11.22 Type 2 diabetes mellitus with diabetic chronic kidney disease; E11.51 Type 2 diabetes mellitus with diabetic peripheral angiopathy without gangrene; I12.9 Hypertensive chronic kidney disease with stage 1 through stage 4 chronic kidney disease, or unspecified chronic kidney disease; K57.30 Diverticulosis of large intestine without perforation or abscess without bleeding; K63.5 Polyp of colon; Z90.49 Acquired absence of other specified parts of digestive tract; Z87.891 Personal history of nicotine dependence; Z82.3 Family history of stroke; Z86.73 Personal history of transient ischemic attack (TIA), and cerebral infarction without residual deficits; Z86.16 Personal history of COVID-19; Z91.81 History of falling; Z79.4 Long term (current) use of insulin; Z79.899 Other long term (current) drug therapy
CPT/HCPCS: 36415; 36416; 70450; 71045; 80048; 80053; 81003; 81015; 82607; 82728; 82746; 83036; 83605; 84443; 84484; 85025; 85610; 85730; 87040; 88305; 93005; 94760; 96365; 96366; 96375; 96376; C9113; G0378; J0360; J0696; J1815; J1953; J2270; J2704; J3010; J3490; Q0162

== ENCOUNTER 2021-01-26 11:50 | Inpatient (IN) | payer SELFPAY ==
[2021-01-26 13:08] LABS: #Eosinphils 0.7 thou/uL (0.0-0.7); #Lymphocytes 1.5 thou/uL (1.20-3.40); #Monocytes 0.4 thou/uL (0.11-0.59); #Neutrophils 2.9 thou/uL (1.40-6.50); %Basophils 0.5 % (0.0-1.0); %Eosinophils 12.5 % (0.0-10.0); %Lymphocytes 27.7 % (21.0-51.0); %Monocytes 7.8 % (0.0-10.0); %Neutrophils 51.5 % (42.0-75.0); Hemoglobin 10.2 g/dL (14.0-18.0); Mean Corpuscular HGB CONC 36.3 g/dL (32.0-36.0); Mean Corpuscular Hemoglobin 29.7 pg (27.0-31.0); Mean Corpuscular Volume 81.8 fL (78.0-98.0); Mean Platelet Volume 5.8 fL (7.4-10.4); Platelet Count 272 thou/uL (130-400); RBC Distribution Width 12.4 % (11.5-14.5); Red Blood Cell (RBC) Count 3.43 mill/uL (4.70-6.10); White Blood Cell (WBC) Count 5.5 thou/uL (4.8-10.8)
[2021-01-26 13:28] LABS: ALT (SGPT) Less than 7 U/L (8-55); AST (SGOT) 7 U/L (5-34); Albumin 3.1 g/dL (3.5-5.0); Alkaline Phosphatase 113 U/L (40-110); Anion Gap 11 mmol/L (10-20); BUN (Urea Nitrogen) 21 mg/dL (8.9-20.6); Bilirubin, Total 0.9 mg/dL (0.2-1.2); Calc. Creatinine Clearance 0 mL/min (70-130); Calcium 8.6 mg/dL (7.8-10.44); Carbon Dioxide 25 mmol/L (22-29); Chloride 104 mmol/L (98-107); Globulin 3.7 g/dL (2.4-3.5); Glucose 346 mg/dL (70-105); Lipase 8 U/L (8-78); Potassium 4.2 mmol/L (3.5-5.1); Protein, Total 6.8 g/dL (6.0-8.3); Sodium 136 mmol/L (136-145)
[2021-01-26] MEDS ORDERED: Aspirin Chewable 81 MG TAB ONE (13:33)
[2021-01-26] MEDS ORDERED: Ondansetron PF 4 MG/2 ML Vial ONE ×2 (13:33→22:33)
[2021-01-26] MEDS ORDERED: Nitroglycerin 2% Ointment 1 INCH/1 GM Packet ONE (16:28)
[2021-01-26] MEDS ORDERED: Dextrose 50% Abboject 50 ML SYRINGE SLOW IVP PRN (16:41)
[2021-01-26] MEDS ORDERED: HumaLOG 300 UNITS/3 ML VIAL SC PRN (16:41)
[2021-01-26] MEDS ORDERED: Dextrose 5% in Water 1,000 ML IV PRN (16:41)
[2021-01-26 16:55] LABS: Troponin I Less than 0.010 ng/mL (< 0.028)
[2021-01-26] MEDS ORDERED: hydrALAZINE 20 MG/ML VIAL SLOW IVP PRN (17:39)
[2021-01-26] MEDS ORDERED: Amlodipine 5 MG TAB ONE (17:41)
[2021-01-26] MEDS ORDERED: Amlodipine 10 MG TAB PO SCH (18:30)
[2021-01-26] MEDS ORDERED: Dicyclomine 20 MG TAB ONE (19:18)
[2021-01-26] MEDS: Sodium Chloride 0.9% 1,000 ML IV SCH (19:22)
[2021-01-26] MEDS: Dicyclomine 10 MG CAP PO SCH ×2 (19:22→22:14)
[2021-01-26] MEDS ORDERED: hydrALAZINE 20 MG/ML VIAL ONE (19:36)
[2021-01-26] MEDS ORDERED: Acetaminophen 325 MG TAB ONE (20:42)
[2021-01-26] MEDS: Acetaminophen 325 MG TAB PO PRN (20:43)
[2021-01-26 20:44] LABS: Troponin I Less than 0.010 ng/mL (< 0.028)
[2021-01-26] MEDS: Gabapentin 300 MG CAP PO SCH (22:12)
[2021-01-26] MEDS: levETIRAcetam 500 MG TAB PO SCH (22:14)
[2021-01-26] MEDS ORDERED: Morphine 4 MG/ML VIAL ONE (22:33)
[2021-01-26] MEDS ORDERED: Morphine 4 MG/ML VIAL SLOW IVP SCH (22:45)
[2021-01-26] MEDS: Ondansetron PF 4 MG/2 ML Vial IVP PRN (22:49)
[2021-01-27 05:03] LABS: SARS-CoV-2 NAA Rapid Test Not Detected (NotDetected)
[2021-01-27 05:58] LABS: #Eosinphils 0.6 thou/uL (0.0-0.7); #Lymphocytes 1.7 thou/uL (1.20-3.40); #Monocytes 0.5 thou/uL (0.11-0.59); #Neutrophils 2.6 thou/uL (1.40-6.50); %Basophils 0.8 % (0.0-1.0); %Eosinophils 11.6 % (0.0-10.0); %Monocytes 9.1 % (0.0-10.0); %Neutrophils 47.5 % (42.0-75.0); Hemoglobin 9.3 g/dL (14.0-18.0); Mean Corpuscular HGB CONC 36.5 g/dL (32.0-36.0); Mean Corpuscular Hemoglobin 30.4 pg (27.0-31.0); Mean Corpuscular Volume 83.2 fL (78.0-98.0); Mean Platelet Volume 5.6 fL (7.4-10.4); Platelet Count 227 thou/uL (130-400); RBC Distribution Width 12.5 % (11.5-14.5); Red Blood Cell (RBC) Count 3.05 mill/uL (4.70-6.10); White Blood Cell (WBC) Count 5.5 thou/uL (4.8-10.8)
[2021-01-27 06:11] LABS: Anion Gap 10 mmol/L (10-20); BUN (Urea Nitrogen) 21 mg/dL (8.9-20.6); Calc. Creatinine Clearance 0 mL/min (70-130); Calcium 8.2 mg/dL (7.8-10.44); Carbon Dioxide 22 mmol/L (22-29); Cardiac Risk 9.9 (Less than 4.5); Chloride 110 mmol/L (98-107); Cholesterol 248 mg/dl (< 200 Desired); Glucose 308 mg/dL (70-105); HDL Cholesterol 25 mg/dL (>60 Neg Risk); Potassium 3.6 mmol/L (3.5-5.1); Sodium 138 mmol/L (136-145)
[2021-01-27] MEDS: Sodium Chloride 0.9% 1,000 ML IV SCH ×2 (06:13→20:59)
[2021-01-27] MEDS ORDERED: Amlodipine 5 MG TAB ONE (08:03)
[2021-01-27] MEDS ORDERED: Dicyclomine 20 MG TAB ONE (08:03)
[2021-01-27] MEDS ORDERED: ADENOSINE 60 MG/20 ML VIAL ONE (09:42)
[2021-01-27] MEDS: Amlodipine 10 MG TAB PO SCH (13:16)
[2021-01-27] MEDS: Gabapentin 300 MG CAP PO SCH ×3 (13:18→20:58)
[2021-01-27] MEDS: levETIRAcetam 500 MG TAB PO SCH ×2 (13:19→20:58)
[2021-01-27] MEDS: Dicyclomine 10 MG CAP PO SCH ×4 (13:20→20:58)
[2021-01-27] MEDS ORDERED: Simethicone Chewable 80 MG TAB PO PRN (14:22)
[2021-01-27 14:43] LABS: LDL Cholesterol, Calculated 130 mg/dL; Triglycerides 462 mg/dL (Less than 150)
[2021-01-27 17:00] VITALS: BMI 26.7
[2021-01-28] MEDS: Acetaminophen 325 MG TAB PO PRN ×4 (04:21→18:18)
[2021-01-28 07:35] LABS: #Eosinphils 0.7 thou/uL (0.0-0.7); #Lymphocytes 1.8 thou/uL (1.20-3.40); #Monocytes 0.4 thou/uL (0.11-0.59); #Neutrophils 2.9 thou/uL (1.40-6.50); %Basophils 0.8 % (0.0-1.0); %Eosinophils 12.7 % (0.0-10.0); %Monocytes 6.9 % (0.0-10.0); %Neutrophils 48.6 % (42.0-75.0); Hemoglobin 9.6 g/dL (14.0-18.0); Mean Corpuscular HGB CONC 36.2 g/dL (32.0-36.0); Mean Corpuscular Hemoglobin 30.1 pg (27.0-31.0); Mean Corpuscular Volume 83.3 fL (78.0-98.0); Mean Platelet Volume 5.7 fL (7.4-10.4); Platelet Count 232 thou/uL (130-400); RBC Distribution Width 12.6 % (11.5-14.5); Red Blood Cell (RBC) Count 3.17 mill/uL (4.70-6.10); White Blood Cell (WBC) Count 5.9 thou/uL (4.8-10.8)
[2021-01-28 08:02] LABS: Anion Gap 11 mmol/L (10-20); BUN (Urea Nitrogen) 16 mg/dL (8.9-20.6); Calc. Creatinine Clearance 86 mL/min (70-130); Calcium 8.4 mg/dL (7.8-10.44); Carbon Dioxide 21 mmol/L (22-29); Chloride 111 mmol/L (98-107); Glucose 177 mg/dL (70-105); Potassium 3.6 mmol/L (3.5-5.1); Sodium 139 mmol/L (136-145)
[2021-01-28] MEDS: Amlodipine 10 MG TAB PO SCH (08:48)
[2021-01-28] MEDS: levETIRAcetam 500 MG TAB PO SCH ×2 (08:48→22:32)
[2021-01-28] MEDS: Dicyclomine 10 MG CAP PO SCH ×4 (08:48→22:32)
[2021-01-28] MEDS: Gabapentin 300 MG CAP PO SCH ×3 (08:48→22:33)
[2021-01-28] MEDS: Empagliflozin 10 MG TAB PO SCH (09:00)
[2021-01-28] MEDS: Morphine 2 MG/ML VIAL SLOW IVP PRN ×2 (09:50→13:29)
[2021-01-28] MEDS: Sodium Chloride 0.9% 1,000 ML IV SCH (12:06)
[2021-01-28] MEDS: HumaLOG 300 UNITS/3 ML VIAL SC PRN ×2 (13:39→18:19)
[2021-01-28] MEDS: Methocarbamol 500 MG TAB PO PRN (22:32)
[2021-01-29] MEDS: Sodium Chloride 0.9% 1,000 ML IV SCH ×3 (00:12→19:20)
[2021-01-29] MEDS: Acetaminophen 325 MG TAB PO PRN ×2 (00:13→17:30)
[2021-01-29] MEDS: hydrALAZINE 20 MG/ML VIAL SLOW IVP PRN ×3 (05:21→21:11)
[2021-01-29] MEDS: HumaLOG 300 UNITS/3 ML VIAL SC PRN ×2 (06:35→17:22)
[2021-01-29 07:38] LABS: Hemoglobin A1c 6.5 % (4.0-6.0)
[2021-01-29 07:54] LABS: Anion Gap 10 mmol/L (10-20); BUN (Urea Nitrogen) 15 mg/dL (8.9-20.6); Calc. Creatinine Clearance 81 mL/min (70-130); Calcium 8.4 mg/dL (7.8-10.44); Carbon Dioxide 20 mmol/L (22-29); Cardiac Risk 10.5 (Less than 4.5); Chloride 110 mmol/L (98-107); Cholesterol 251 mg/dl (< 200 Desired); Glucose 165 mg/dL (70-105); HDL Cholesterol 24 mg/dL (>60 Neg Risk); LDL Cholesterol, Calculated 157 mg/dL; Potassium 3.6 mmol/L (3.5-5.1); Sodium 136 mmol/L (136-145); Triglycerides 351 mg/dL (Less than 150)
[2021-01-29] MEDS: levETIRAcetam 500 MG TAB PO SCH ×2 (09:53→20:48)
[2021-01-29] MEDS: Amlodipine 10 MG TAB PO SCH (09:53)
[2021-01-29] MEDS: Dicyclomine 10 MG CAP PO SCH ×4 (09:53→20:48)
[2021-01-29] MEDS: Empagliflozin 10 MG TAB PO SCH (09:54)
[2021-01-29] MEDS: Gabapentin 300 MG CAP PO SCH ×3 (09:54→20:48)
[2021-01-29] MEDS: Methocarbamol 500 MG TAB PO PRN ×2 (09:55→22:19)
[2021-01-29] MEDS: Morphine 2 MG/ML VIAL SLOW IVP PRN ×2 (13:32→19:20)
[2021-01-30 06:15] LABS: #Eosinphils 0.7 thou/uL (0.0-0.7); #Lymphocytes 1.8 thou/uL (1.20-3.40); #Monocytes 0.4 thou/uL (0.11-0.59); #Neutrophils 2.4 thou/uL (1.40-6.50); %Basophils 0.7 % (0.0-1.0); %Eosinophils 12.5 % (0.0-10.0); %Lymphocytes 32.9 % (21.0-51.0); %Monocytes 8.3 % (0.0-10.0); %Neutrophils 45.6 % (42.0-75.0); Hemoglobin 9.4 g/dL (14.0-18.0); Mean Corpuscular HGB CONC 35.4 g/dL (32.0-36.0); Mean Corpuscular Hemoglobin 29.5 pg (27.0-31.0); Mean Corpuscular Volume 83.2 fL (78.0-98.0); Mean Platelet Volume 5.7 fL (7.4-10.4); Platelet Count 226 thou/uL (130-400); RBC Distribution Width 12.7 % (11.5-14.5); White Blood Cell (WBC) Count 5.3 thou/uL (4.8-10.8)
[2021-01-30] MEDS: Morphine 2 MG/ML VIAL SLOW IVP PRN ×2 (06:23→21:33)
[2021-01-30 06:33] LABS: Anion Gap 10 mmol/L (10-20); BUN (Urea Nitrogen) 15 mg/dL (8.9-20.6); Calc. Creatinine Clearance 81 mL/min (70-130); Calcium 8.3 mg/dL (7.8-10.44); Carbon Dioxide 21 mmol/L (22-29); Chloride 109 mmol/L (98-107); Glucose 200 mg/dL (70-105); Potassium 3.9 mmol/L (3.5-5.1); Sodium 136 mmol/L (136-145)
[2021-01-30] MEDS ORDERED: Lorazepam 2 MG/ML VIAL SLOW IVP PRN (07:45)
[2021-01-30] MEDS: levETIRAcetam 500 MG TAB PO SCH ×2 (08:43→21:46)
[2021-01-30] MEDS: Empagliflozin 10 MG TAB PO SCH ×2 (08:44→08:46)
[2021-01-30] MEDS: Gabapentin 300 MG CAP PO SCH ×3 (08:44→21:37)
[2021-01-30] MEDS: Dicyclomine 10 MG CAP PO SCH ×4 (08:44→21:38)
[2021-01-30] MEDS: Amlodipine 10 MG TAB PO SCH (08:44)
[2021-01-30] MEDS: Sodium Chloride 0.9% 1,000 ML IV SCH ×2 (08:45→13:16)
[2021-01-30] MEDS ORDERED: levETIRAcetam 500 MG TAB PO SCH (11:30)
[2021-01-30] MEDS: hydrALAZINE 20 MG/ML VIAL SLOW IVP PRN (11:47)
[2021-01-30] MEDS: Methocarbamol 500 MG TAB PO PRN (18:22)
[2021-01-30] MEDS ORDERED: Lantus 1000 UNITS/10 ML VIAL SC SCH (21:00)
[2021-01-30] MEDS: Lantus 1000 UNITS/10 ML VIAL SC SCH (21:38)
[2021-01-30] MEDS: Metoclopramide 10 MG/10 ML UDCUP PO SCH (21:38)
[2021-01-31] MEDS: Acetaminophen 325 MG TAB PO PRN (00:35)
[2021-01-31] MEDS: Methocarbamol 500 MG TAB PO PRN ×2 (00:35→12:24)
[2021-01-31] MEDS: Sodium Chloride 0.9% 1,000 ML IV SCH ×3 (03:01→15:54)
[2021-01-31] MEDS: Ondansetron PF 4 MG/2 ML Vial IVP PRN (04:36)
[2021-01-31] MEDS: Simethicone Chewable 80 MG TAB PO PRN (04:46)
[2021-01-31] MEDS: Dicyclomine 10 MG CAP PO SCH ×4 (08:28→20:25)
[2021-01-31] MEDS: Empagliflozin 10 MG TAB PO SCH (08:28)
[2021-01-31] MEDS: Gabapentin 300 MG CAP PO SCH ×3 (08:29→20:25)
[2021-01-31] MEDS: Metoclopramide 10 MG/10 ML UDCUP PO SCH (08:29)
[2021-01-31] MEDS: Amlodipine 10 MG TAB PO SCH (08:29)
[2021-01-31] MEDS: levETIRAcetam 500 MG TAB PO SCH ×2 (08:29→20:25)
[2021-01-31] MEDS: Lorazepam 2 MG/ML VIAL SLOW IVP PRN (20:21)
[2021-01-31] MEDS: Lantus 1000 UNITS/10 ML VIAL SC SCH (20:26)
[2021-02-01] MEDS: hydrALAZINE 20 MG/ML VIAL SLOW IVP PRN ×2 (00:12→13:03)
[2021-02-01] MEDS: Ondansetron PF 4 MG/2 ML Vial IVP PRN (05:43)
[2021-02-01] MEDS: Simethicone Chewable 80 MG TAB PO PRN (05:43)
[2021-02-01] MEDS: Methocarbamol 500 MG TAB PO PRN ×2 (06:00→13:03)
[2021-02-01] MEDS: Lorazepam 2 MG/ML VIAL SLOW IVP PRN (08:07)
[2021-02-01] MEDS ORDERED: Magnevist 469MG/ML 20 ML VIAL ONE (08:53)
[2021-02-01] MEDS: levETIRAcetam 500 MG TAB PO SCH (09:17)
[2021-02-01] MEDS: Amlodipine 10 MG TAB PO SCH (09:17)
[2021-02-01] MEDS: Dicyclomine 10 MG CAP PO SCH ×3 (09:17→16:44)
[2021-02-01] MEDS: Gabapentin 300 MG CAP PO SCH ×2 (09:17→15:02)
[2021-02-01] MEDS: Empagliflozin 10 MG TAB PO SCH (09:20)
[2021-02-01] MEDS: HumaLOG 300 UNITS/3 ML VIAL SC PRN (15:03)
[2021-02-01 19:03] VITALS: BP 156/80; TEMP 97.5
== END 2021-02-01 18:38 | disposition home or self-care (01) | DRG 392 ==
LOC: ERS 11:50 → ERHOLD 15:49 → OBSVTOIN 01-27 14:24 → T4-B 01-27 15:50
PROVIDERS: ADMIT Family Medicine; ATTEND Internal Medicine
DX: R10.9 Unspecified abdominal pain (principal); N17.9 Acute kidney failure, unspecified; K76.6 Portal hypertension; E11.43 Type 2 diabetes mellitus with diabetic autonomic (poly)neuropathy; Z20.822 Contact with and (suspected) exposure to COVID-19; G40.909 Epilepsy, unspecified, not intractable, without status epilepticus; K31.84 Gastroparesis; N18.30 Chronic kidney disease, stage 3 unspecified; I12.9 Hypertensive chronic kidney disease with stage 1 through stage 4 chronic kidney disease, or unspecified chronic kidney disease; G43.909 Migraine, unspecified, not intractable, without status migrainosus; K21.9 Gastro-esophageal reflux disease without esophagitis; F15.11 Other stimulant abuse, in remission; E11.40 Type 2 diabetes mellitus with diabetic neuropathy, unspecified; D63.1 Anemia in chronic kidney disease; E11.65 Type 2 diabetes mellitus with hyperglycemia; K29.70 Gastritis, unspecified, without bleeding; K57.30 Diverticulosis of large intestine without perforation or abscess without bleeding; E88.09 Other disorders of plasma-protein metabolism, not elsewhere classified; G89.29 Other chronic pain; E11.3499 Type 2 diabetes mellitus with severe nonproliferative diabetic retinopathy without macular edema, unspecified eye; K52.9 Noninfective gastroenteritis and colitis, unspecified; R13.10 Dysphagia, unspecified; K31.89 Other diseases of stomach and duodenum; Z86.73 Personal history of transient ischemic attack (TIA), and cerebral infarction without residual deficits; Z90.49 Acquired absence of other specified parts of digestive tract; Z79.82 Long term (current) use of aspirin; Z79.899 Other long term (current) drug therapy; Z86.19 Personal history of other infectious and parasitic diseases; Z86.16 Personal history of COVID-19
CPT/HCPCS: 0240U; 36415; 36416; 70450; 70551; 70553; 71045; 78264; 78452; 80048; 80053; 80061; 80177; 83036; 83690; 84484; 85025; 93005; 93010; 93017; 95712; 95819; 95957; 96374; 96375; 96376; A9500; A9541; A9579; G0378; J0153; J0360; J1815; J2060; J2270; J2405

== ENCOUNTER 2021-02-03 09:02 | Emergency (ER) | payer SELFPAY ==
[2021-02-03 10:16] LABS: ALT (SGPT) Less than 7 U/L (8-55); AST (SGOT) 9 U/L (5-34); Alkaline Phosphatase 109 U/L (40-110); Anion Gap 12 mmol/L (10-20); BUN (Urea Nitrogen) 22 mg/dL (8.9-20.6); Calc. Creatinine Clearance 0 mL/min (70-130); Calcium 8.9 mg/dL (7.8-10.44); Carbon Dioxide 26 mmol/L (22-29); Chloride 104 mmol/L (98-107); Globulin 3.7 g/dL (2.4-3.5); Glucose 200 mg/dL (70-105); Potassium 4.5 mmol/L (3.5-5.1); Protein, Total 6.7 g/dL (6.0-8.3); Sodium 137 mmol/L (136-145)
[2021-02-03] MEDS ORDERED: Iopamidol-370 76% 500 ML 1 ML ONE (10:16)
[2021-02-03] MEDS ORDERED: Pantoprazole 40 MG VIAL ONE (10:22)
[2021-02-03] MEDS ORDERED: Metoclopramide HCl 10 MG/2 ML VIAL ONE (10:22)
[2021-02-03] MEDS ORDERED: diphenhydrAMINE 50 MG/ML VIAL ONE (10:22)
[2021-02-03] MEDS ORDERED: Midazolam HCl 2 mg/2 ml Vial ONE (10:22)
[2021-02-03] MEDS ORDERED: levETIRAcetam in NS 100 ML ONE (10:25)
[2021-02-03 10:28] LABS: #Basophils 0.1 thou/uL (0.0-0.2); #Eosinphils 0.8 thou/uL (0.0-0.7); #Lymphocytes 1.6 thou/uL (1.20-3.40); #Monocytes 0.3 thou/uL (0.11-0.59); #Neutrophils 6.3 thou/uL (1.40-6.50); %Basophils 0.7 % (0.0-1.0); %Eosinophils 8.3 % (0.0-10.0); %Lymphocytes 17.7 % (21.0-51.0); %Monocytes 3.6 % (0.0-10.0); %Neutrophils 69.6 % (42.0-75.0); Hemoglobin 10.4 g/dL (14.0-18.0); MDiff Complete? YES; Mean Corpuscular HGB CONC 36.9 g/dL (32.0-36.0); Mean Corpuscular Hemoglobin 30.5 pg (27.0-31.0); Mean Corpuscular Volume 82.7 fL (78.0-98.0); Platelet Count 218 thou/uL (130-400); Platelet Morphology Comment Appears Adequate; Polychromasia SLIGHT = 2-3 cells (100X) (0-2/hpf); RBC Distribution Width 12.7 % (11.5-14.5); Red Blood Cell (RBC) Count 3.42 mill/uL (4.70-6.10); White Blood Cell (WBC) Count 9.1 thou/uL (4.8-10.8)
[2021-02-03] MEDS ORDERED: Ondansetron PF 4 MG/2 ML Vial ONE (11:07)
[2021-02-03 12:56] LABS: Bacteria/HPF None Seen HPF (None Seen); Bilirubin Negative (Negative); Blood, Urine 2+ (Negative); Clarity Clear (Clear); Glucose, Urine (Dipstick) Greater than 1000 mg/dL (Negative); Ketone, Urine Negative (Negative); Leukocyte Negative Leu/uL (Negative); Nitrite Negative (Negative); Protein, Urine (Dipstick) 300 mg/dL (Neg-Trace); Specific Gravity, Urine 1.022 (1.002-1.036); Squamous Epithelial 0-3 HPF (0-3); Urobilinogen Normal mg/dL (Less than 2); WBC/HPF 0-3 HPF (0-3); pH, Urine 6.5 (5.0-9.0)
== END 2021-02-03 13:59 | disposition home or self-care (01) ==
LOC: ERS 09:02
DX: I12.9 Hypertensive chronic kidney disease with stage 1 through stage 4 chronic kidney disease, or unspecified chronic kidney disease (principal); N18.9 Chronic kidney disease, unspecified; E11.22 Type 2 diabetes mellitus with diabetic chronic kidney disease; E11.65 Type 2 diabetes mellitus with hyperglycemia; R11.2 Nausea with vomiting, unspecified; R31.9 Hematuria, unspecified; G43.909 Migraine, unspecified, not intractable, without status migrainosus; K21.9 Gastro-esophageal reflux disease without esophagitis; E11.40 Type 2 diabetes mellitus with diabetic neuropathy, unspecified; Z79.82 Long term (current) use of aspirin; Z86.73 Personal history of transient ischemic attack (TIA), and cerebral infarction without residual deficits; Z79.899 Other long term (current) drug therapy
CPT/HCPCS: 74177; 80053; 81003; 81015; 83690; 84484; 85025; 87086; 93005; 96365; 96366; 96375; C9113; J1200; J1953; J2250; J2405; J2765; Q9967

== ENCOUNTER 2021-05-25 12:31 | Emergency (ER) | payer MEDICAID ==
[2021-05-25 14:03] LABS: #Eosinphils 0.2 thou/uL (0.0-0.7); #Lymphocytes 1.4 thou/uL (1.20-3.40); #Monocytes 0.5 thou/uL (0.11-0.59); #Neutrophils 3.8 thou/uL (1.40-6.50); %Basophils 0.6 % (0.0-1.0); %Eosinophils 3.8 % (0.0-10.0); %Lymphocytes 23.6 % (21.0-51.0); Hemoglobin 10.2 g/dL (14.0-18.0); Mean Corpuscular HGB CONC 35.8 g/dL (32.0-36.0); Mean Corpuscular Hemoglobin 30.1 pg (27.0-31.0); Mean Corpuscular Volume 84.2 fL (78.0-98.0); Mean Platelet Volume 6.3 fL (7.4-10.4); Platelet Count 226 thou/uL (130-400); RBC Distribution Width 11.4 % (11.5-14.5); Red Blood Cell (RBC) Count 3.38 mill/uL (4.70-6.10); White Blood Cell (WBC) Count 5.9 thou/uL (4.8-10.8)
[2021-05-25 14:18] LABS: ALT (SGPT) Less than 7 U/L (8-55); AST (SGOT) 8 U/L (5-34); Albumin 3.2 g/dL (3.5-5.0); Alkaline Phosphatase 151 U/L (40-110); Anion Gap 13 mmol/L (10-20); BUN (Urea Nitrogen) 54 mg/dL (8.9-20.6); Bilirubin, Total 0.7 mg/dL (0.2-1.2); Calc. Creatinine Clearance 0 mL/min (70-130); Calcium 8.7 mg/dL (7.8-10.44); Carbon Dioxide 20 mmol/L (22-29); Chloride 102 mmol/L (98-107); Globulin 3.8 g/dL (2.4-3.5); Glucose 541 mg/dL (70-105); Potassium 4.7 mmol/L (3.5-5.1); Sodium 130 mmol/L (136-145)
[2021-05-25 14:46] LABS: Bacteria/HPF None Seen HPF (None Seen); Bilirubin Negative (Negative); Blood, Urine 1+ (Negative); Clarity Clear (Clear); Glucose, Urine (Dipstick) Greater than 1000 mg/dL (Negative); Ketone, Urine Negative (Negative); Leukocyte Negative Leu/uL (Negative); Nitrite Negative (Negative); Protein, Urine (Dipstick) 300 mg/dL (Neg-Trace); RBC/HPF 0-3 HPF (0-3); Specific Gravity, Urine 1.023 (1.002-1.036); Squamous Epithelial 0-3 HPF (0-3); Urobilinogen Normal mg/dL (Less than 2); WBC/HPF 0-3 HPF (0-3)
== END 2021-05-25 17:22 | disposition home or self-care (01) ==
LOC: ERS 12:31
DX: R56.9 Unspecified convulsions (principal); G43.909 Migraine, unspecified, not intractable, without status migrainosus; I10 Essential (primary) hypertension; K21.9 Gastro-esophageal reflux disease without esophagitis; E11.40 Type 2 diabetes mellitus with diabetic neuropathy, unspecified; Z86.73 Personal history of transient ischemic attack (TIA), and cerebral infarction without residual deficits
CPT/HCPCS: 36415; 70450; 80053; 81003; 81015; 85025; 93005

== ENCOUNTER 2021-05-30 22:12 | Emergency (ER) | payer MEDICAID ==
[2021-05-30 23:12] LABS: #Eosinphils 0.3 thou/uL (0.0-0.7); #Lymphocytes 1.9 thou/uL (1.20-3.40); #Monocytes 0.5 thou/uL (0.11-0.59); #Neutrophils 4.5 thou/uL (1.40-6.50); %Basophils 0.6 % (0.0-1.0); %Eosinophils 4.2 % (0.0-10.0); %Lymphocytes 26.7 % (21.0-51.0); %Monocytes 7.3 % (0.0-10.0); %Neutrophils 61.2 % (42.0-75.0); Hemoglobin 10.2 g/dL (14.0-18.0); Mean Corpuscular HGB CONC 35.6 g/dL (32.0-36.0); Mean Corpuscular Hemoglobin 30.9 pg (27.0-31.0); Mean Corpuscular Volume 86.6 fL (78.0-98.0); Mean Platelet Volume 6.2 fL (7.4-10.4); Platelet Count 226 thou/uL (130-400); RBC Distribution Width 11.8 % (11.5-14.5); Red Blood Cell (RBC) Count 3.32 mill/uL (4.70-6.10); White Blood Cell (WBC) Count 7.3 thou/uL (4.8-10.8)
[2021-05-30 23:37] LABS: ALT (SGPT) Less than 7 U/L (8-55); AST (SGOT) 10 U/L (5-34); Alkaline Phosphatase 138 U/L (40-110); Anion Gap 13 mmol/L (10-20); BUN (Urea Nitrogen) 39 mg/dL (8.9-20.6); Bilirubin, Total 0.7 mg/dL (0.2-1.2); Calc. Creatinine Clearance 0 mL/min (70-130); Calcium 7.8 mg/dL (7.8-10.44); Carbon Dioxide 19 mmol/L (22-29); Chloride 104 mmol/L (98-107); Globulin 3.4 g/dL (2.4-3.5); Potassium 4.7 mmol/L (3.5-5.1); Protein, Total 6.4 g/dL (6.0-8.3); Sodium 131 mmol/L (136-145)
[2021-05-30 23:42] LABS: Glucose 559 mg/dL (70-105)
== END 2021-05-31 00:30 | disposition home or self-care (01) ==
LOC: ERS 22:12
DX: E11.65 Type 2 diabetes mellitus with hyperglycemia (principal); E11.22 Type 2 diabetes mellitus with diabetic chronic kidney disease; I12.9 Hypertensive chronic kidney disease with stage 1 through stage 4 chronic kidney disease, or unspecified chronic kidney disease; N18.9 Chronic kidney disease, unspecified; E11.40 Type 2 diabetes mellitus with diabetic neuropathy, unspecified; K21.9 Gastro-esophageal reflux disease without esophagitis; G43.909 Migraine, unspecified, not intractable, without status migrainosus
CPT/HCPCS: 36415; 71045; 80053; 84484; 85025; 93005

== ENCOUNTER 2021-07-01 20:04 | Emergency (ER) | payer MEDICAID ==
[2021-07-01] MEDS ORDERED: levETIRAcetam 500 MG TAB PO SCH (21:00)
== END 2021-07-01 21:27 | disposition home or self-care (01) ==
LOC: ERS 20:04
DX: G40.909 Epilepsy, unspecified, not intractable, without status epilepticus (principal); Z79.899 Other long term (current) drug therapy
CPT/HCPCS: 99284

== ENCOUNTER 2022-06-07 09:05 | Inpatient (IN) | payer MEDICARE, MEDICAID ==
[2022-06-07] MEDS ORDERED: Morphine 4 MG/ML VIAL ONE (10:15)
[2022-06-07] MEDS ORDERED: Ondansetron PF 4 MG/2 ML Vial ONE ×2 (10:15→11:20)
[2022-06-07 10:23] LABS: #Eosinphils 0.1 thou/uL (0.0-0.7); #Monocytes 0.4 thou/uL (0.11-0.59); #Neutrophils 6.8 thou/uL (1.40-6.50); %Basophils 0.1 % (0.0-1.0); %Eosinophils 1.7 % (0.0-10.0); %Lymphocytes 11.7 % (21.0-51.0); %Monocytes 5.2 % (0.0-10.0); %Neutrophils 81.3 % (42.0-75.0); Hemoglobin 8.8 g/dL (14.0-18.0); Mean Corpuscular HGB CONC 34.6 g/dL (32.0-36.0); Mean Corpuscular Hemoglobin 30.1 pg (27.0-31.0); Mean Corpuscular Volume 86.8 fl (78.0-98.0); Mean Platelet Volume 6.2 fL (7.4-10.4); Platelet Count 246 10x3/uL (130-400); RBC Distribution Width 13.6 % (11.5-14.5); Red Blood Cell (RBC) Count 2.92 mill/uL (4.70-6.10); White Blood Cell (WBC) Count 8.3 10x3/uL (4.8-10.8)
[2022-06-07 10:42] LABS: ALT (SGPT) 10 U/L (8-55); AST (SGOT) 14 U/L (5-34); Albumin 3.3 g/dL (3.5-5.0); Alkaline Phosphatase 142 U/L (40-110); Anion Gap 16 mmol/L (10-20); BUN (Urea Nitrogen) 49 mg/dL (8.9-20.6); Bilirubin, Total 0.6 mg/dL (0.2-1.2); Calc. Creatinine Clearance 0 mL/min (70-130); Calcium 8.3 mg/dL (7.8-10.44); Carbon Dioxide 19 mmol/L (22-29); Chloride 100 mmol/L (98-107); Estimated GFR 24; Globulin 3.3 g/dL (2.4-3.5); Lipase 39 U/L (8-78); Potassium 5.4 mmol/L (3.5-5.1); Protein, Total 6.6 g/dL (6.0-8.3); Sodium 130 mmol/L (136-145)
[2022-06-07 10:45] LABS: Bacteria/HPF None Seen HPF (None Seen); Bilirubin Negative (Negative); Blood, Urine 1+ (Negative); Clarity Clear (Clear); Glucose, Urine (Dipstick) Greater than 1000 mg/dL (Negative); Ketone, Urine Negative (Negative); Leukocyte Negative Leu/uL (Negative); Nitrite Negative (Negative); Protein, Urine (Dipstick) 200 mg/dL (Neg-Trace); RBC/HPF 0-3 HPF (0-3); Specific Gravity, Urine 1.013 (1.002-1.036); Squamous Epithelial None Seen HPF (0-3); Urobilinogen Normal mg/dL (Less than 2); WBC/HPF 0-3 HPF (0-3)
[2022-06-07 10:48] LABS: Glucose 422 mg/dL (70-105)
[2022-06-07 12:28] LABS: Actual Bicarbonate (HCO3v) 23 mEq/L (22-28); Analyzer IN Cardio ER; Base Excess -1.1 mEq/L (-2.0 to +3.0); Calcium, Ionized (venous) 1.04 mmol/L (1.16-1.32); Chloride (VBG) 100 mmol/L (98-106); Hemoglobin (Hb) 9.8 g/dL (13.1-17.2); Potassium (VBG) 5.44 mmol/L (3.70-5.30); Sodium 131.8 mmol/L (133-146); pH (venous) 7.42 (7.32-7.43)
[2022-06-07 12:32] LABS: Magnesium 1.6 mg/dL (1.6-2.6); Phosphorus 3.3 mg/dL (2.3-4.7)
[2022-06-07] MEDS ORDERED: Aspirin Chewable 81 MG TAB ONE (13:24)
[2022-06-07] MEDS ORDERED: Labetalol HCl 100 MG/20 ML VIAL ONE (13:24)
[2022-06-07] MEDS ORDERED: Insulin Regular 300 UNITS/3 ML VIAL ONE (13:24)
[2022-06-07 13:42] LABS: Actual Bicarbonate (HCO3a) 22.7 mEq/L (22-28); Calcium, Ionized (arterial) 0.99 mmol/L (1.12-1.30); Carboxyhemoglobin (COHb) 0.3 gm% (0.0-3.0); Hemoglobin (Hb) 9.4 g/dL (14.0-18.0); Potassium - ABG Lab 4.01 mmol/L (3.70-5.30); pH, Arterial 7.44 (7.35-7.45)
[2022-06-07 13:46] LABS: O2 Tension (PaO2), arterial 53.1 mmHg (80.0-100.0); Puncture Site RRA
[2022-06-07] MEDS ORDERED: HumaLOG 300 UNITS/3 ML VIAL SC PRN ×2 (14:19→21:56)
[2022-06-07] MEDS ORDERED: Dextrose 50% Abboject 50 ML SYRINGE SLOW IVP PRN (14:19)
[2022-06-07] MEDS ORDERED: Dextrose 5% in Water 1,000 ML IV PRN (14:19)
[2022-06-07] MEDS ORDERED: Acetaminophen 325 MG TAB PO PRN (14:21)
[2022-06-07] MEDS ORDERED: Lactated Ringer's 1,000 ML IV SCH (14:30)
[2022-06-07 14:33] LABS: Amphetamine Not Detected (NotDetected); Barbiturates Screen Not Detected (NotDetected); Benzodiazepine Screen Not Detected (NotDetected); Cocaine Metabolite Screen Not Detected (NotDetected); Methadone Not Detected (NotDetected); Methamphetamine Not Detected (NotDetected); Opiate Screen Not Detected (NotDetected); Oxycodone Screen Not Detected (NotDetected); Phencyclidine (PCP) Not Detected (NotDetected); THC/Cannabinoid Screen Not Detected (NotDetected); Tricyclic Screen Not Detected (NotDetected)
[2022-06-07] MEDS: Sodium Bicarbonate Tab 325 MG TAB PO SCH ×2 (15:43→20:49)
[2022-06-07] MEDS: Heparin 5,000 UNITS/ML VIAL SC SCH ×2 (15:43→20:48)
[2022-06-07 17:36] VITALS: BMI 24.8
[2022-06-07] MEDS ORDERED: FLU VACC QS2022-23(6MOS UP)/PF 60 MCG/0.5 ML SYRINGE IM ONE (18:00)
[2022-06-07 19:30] LABS: Troponin I 0.037 ng/mL (< 0.028)
[2022-06-07] MEDS: levETIRAcetam 500 MG TAB PO SCH (20:49)
[2022-06-07] MEDS: Insulin Glargine 30 UNITS/0.3 ML VIAL SC SCH (20:49)
[2022-06-07 21:08] LABS: Troponin I 0.031 ng/mL (< 0.028)
[2022-06-07] MEDS ORDERED: Ondansetron PF 4 MG/2 ML Vial IVP PRN (21:17)
[2022-06-07] MEDS ORDERED: Ondansetron ODT 4 MG TAB PO PRN (21:17)
[2022-06-08 05:24] LABS: #Eosinphils 0.2 thou/uL (0.0-0.7); #Lymphocytes 1.5 thou/uL (1.20-3.40); #Monocytes 0.6 thou/uL (0.11-0.59); #Neutrophils 4.8 thou/uL (1.40-6.50); %Basophils 0.4 % (0.0-1.0); %Eosinophils 3.4 % (0.0-10.0); %Lymphocytes 20.7 % (21.0-51.0); %Monocytes 8.7 % (0.0-10.0); %Neutrophils 66.8 % (42.0-75.0); Hemoglobin 7.9 g/dL (14.0-18.0); Mean Corpuscular HGB CONC 34.5 g/dL (32.0-36.0); Mean Corpuscular Hemoglobin 30.8 pg (27.0-31.0); Mean Corpuscular Volume 89.2 fl (78.0-98.0); Platelet Count 232 10x3/uL (130-400); RBC Distribution Width 13.7 % (11.5-14.5); Red Blood Cell (RBC) Count 2.55 mill/uL (4.70-6.10); White Blood Cell (WBC) Count 7.2 10x3/uL (4.8-10.8)
[2022-06-08 05:38] LABS: Anion Gap 12 mmol/L (10-20); BUN (Urea Nitrogen) 41 mg/dL (8.9-20.6); Calc. Creatinine Clearance 42 mL/min (70-130); Calcium 8.1 mg/dL (7.8-10.44); Carbon Dioxide 23 mmol/L (22-29); Chloride 104 mmol/L (98-107); Estimated GFR 30; Glucose 153 mg/dL (70-105); Potassium 4.6 mmol/L (3.5-5.1); Sodium 134 mmol/L (136-145)
[2022-06-08] MEDS: Insulin Glargine 30 UNITS/0.3 ML VIAL SC SCH ×2 (09:35→20:49)
[2022-06-08] MEDS: Famotidine 20 MG TAB PO SCH (09:36)
[2022-06-08] MEDS: Sodium Bicarbonate Tab 325 MG TAB PO SCH ×3 (09:36→19:27)
[2022-06-08] MEDS: levETIRAcetam 500 MG TAB PO SCH ×2 (09:37→19:27)
[2022-06-08] MEDS: Heparin 5,000 UNITS/ML VIAL SC SCH ×3 (09:37→19:27)
[2022-06-08] MEDS: Amlodipine 10 MG TAB PO SCH (09:37)
[2022-06-09] MEDS ORDERED: Lorazepam 2 MG/ML VIAL SLOW IVP PRN (00:46)
[2022-06-09] MEDS ORDERED: Baclofen 10 MG TAB PO SCH (01:00)
[2022-06-09] MEDS ORDERED: Baclofen 10 MG TAB PO PRN (01:03)
[2022-06-09] MEDS ORDERED: Gabapentin 100 MG CAP PO SCH ×2 (02:00→09:00)
[2022-06-09 04:58] LABS: #Eosinphils 0.3 thou/uL (0.0-0.7); #Lymphocytes 1.6 thou/uL (1.20-3.40); #Monocytes 0.4 thou/uL (0.11-0.59); #Neutrophils 4.1 thou/uL (1.40-6.50); %Basophils 0.7 % (0.0-1.0); %Lymphocytes 24.4 % (21.0-51.0); %Monocytes 6.2 % (0.0-10.0); %Neutrophils 64.7 % (42.0-75.0); Hemoglobin 7.9 g/dL (14.0-18.0); Mean Corpuscular HGB CONC 35.4 g/dL (32.0-36.0); Mean Corpuscular Hemoglobin 30.8 pg (27.0-31.0); Mean Corpuscular Volume 86.9 fl (78.0-98.0); Mean Platelet Volume 6.2 fL (7.4-10.4); Platelet Count 225 10x3/uL (130-400); RBC Distribution Width 13.5 % (11.5-14.5); Red Blood Cell (RBC) Count 2.58 mill/uL (4.70-6.10); White Blood Cell (WBC) Count 6.4 10x3/uL (4.8-10.8)
[2022-06-09 05:22] LABS: Anion Gap 13 mmol/L (10-20); BUN (Urea Nitrogen) 41 mg/dL (8.9-20.6); Calc. Creatinine Clearance 39 mL/min (70-130); Carbon Dioxide 24 mmol/L (22-29); Chloride 103 mmol/L (98-107); Estimated GFR 28; Glucose 186 mg/dL (70-105); Magnesium 1.6 mg/dL (1.6-2.6); Sodium 135 mmol/L (136-145)
[2022-06-09] MEDS: Insulin Glargine 30 UNITS/0.3 ML VIAL SC SCH (07:54)
[2022-06-09] MEDS: Sodium Bicarbonate Tab 325 MG TAB PO SCH (07:55)
[2022-06-09] MEDS: Famotidine 20 MG TAB PO SCH (07:56)
[2022-06-09] MEDS: levETIRAcetam 500 MG TAB PO SCH (07:56)
[2022-06-09] MEDS: Amlodipine 10 MG TAB PO SCH (07:57)
[2022-06-09] MEDS: Heparin 5,000 UNITS/ML VIAL SC SCH (07:58)
[2022-06-09 11:21] VITALS: BP 131/79; TEMP 97.7
[2022-06-09] MEDS ORDERED: Magnesium 2 GM/50 ML(in water) 2 GM in Premix Bag 1 BAG IVPB SCH (11:45)
== END 2022-06-09 13:53 | disposition home or self-care (01) | DRG 305 ==
LOC: ERS 09:05 → ERHOLD 13:29 → NEURO 16:23 → 2SW 06-08 17:59
PROVIDERS: ADMIT Student in an Organized Health Care Education/Training Program; ATTEND Internal Medicine
DX: I16.1 Hypertensive emergency (principal); N17.9 Acute kidney failure, unspecified; E87.1 Hypo-osmolality and hyponatremia; N18.4 Chronic kidney disease, stage 4 (severe); I12.9 Hypertensive chronic kidney disease with stage 1 through stage 4 chronic kidney disease, or unspecified chronic kidney disease; E11.65 Type 2 diabetes mellitus with hyperglycemia; E87.5 Hyperkalemia; I16.0 Hypertensive urgency; D53.9 Nutritional anemia, unspecified; F41.9 Anxiety disorder, unspecified; G40.909 Epilepsy, unspecified, not intractable, without status epilepticus; E11.22 Type 2 diabetes mellitus with diabetic chronic kidney disease; Z20.822 Contact with and (suspected) exposure to COVID-19; Z91.14 Patient's other noncompliance with medication regimen; Z79.899 Other long term (current) drug therapy; Z79.4 Long term (current) use of insulin; Z86.73 Personal history of transient ischemic attack (TIA), and cerebral infarction without residual deficits; Z87.891 Personal history of nicotine dependence; Z90.49 Acquired absence of other specified parts of digestive tract; Z87.440 Personal history of urinary (tract) infections
CPT/HCPCS: 36415; 36416; 36600; 71045; 80048; 80053; 80306; 81003; 81015; 82010; 82805; 83605; 83690; 83735; 84100; 84146; 84484; 85025; 87040; 87086; 93005; J1644; J1815; J2060; J2270; J2405; J3475; J7120; U0003; U0005

== ENCOUNTER 2022-06-22 18:24 | Inpatient (IN) | payer MEDICARE, MEDICAID ==
[2022-06-22 19:03] LABS: #Eosinphils 0.1 thou/uL (0.0-0.7); #Lymphocytes 1.5 thou/uL (1.20-3.40); #Monocytes 0.4 thou/uL (0.11-0.59); #Neutrophils 6.3 thou/uL (1.40-6.50); %Basophils 0.3 % (0.0-1.0); %Eosinophils 1.7 % (0.0-10.0); %Lymphocytes 17.4 % (21.0-51.0); %Monocytes 5.2 % (0.0-10.0); %Neutrophils 75.4 % (42.0-75.0); Hemoglobin 9.1 g/dL (14.0-18.0); Mean Corpuscular HGB CONC 35.2 g/dL (32.0-36.0); Mean Corpuscular Hemoglobin 30.6 pg (27.0-31.0); Mean Corpuscular Volume 86.9 fl (78.0-98.0); Mean Platelet Volume 5.9 fL (7.4-10.4); Platelet Count 321 10x3/uL (130-400); RBC Distribution Width 12.7 % (11.5-14.5); Red Blood Cell (RBC) Count 2.97 mill/uL (4.70-6.10); White Blood Cell (WBC) Count 8.4 10x3/uL (4.8-10.8)
[2022-06-22 19:14] LABS: Prothrombin Time 13.9 sec (12.0-14.7)
[2022-06-22 19:16] LABS: PTT 40.6 sec (22.9-36.1)
[2022-06-22 19:26] LABS: ALT (SGPT) Less than 7 U/L (8-55); AST (SGOT) 12 U/L (5-34); Albumin 3.3 g/dL (3.5-5.0); Alkaline Phosphatase 132 U/L (40-110); Anion Gap 12 mmol/L (10-20); BUN (Urea Nitrogen) 58 mg/dL (8.9-20.6); Bilirubin, Total 0.4 mg/dL (0.2-1.2); Calc. Creatinine Clearance 0 mL/min (70-130); Calcium 8.3 mg/dL (7.8-10.44); Carbon Dioxide 20 mmol/L (22-29); Chloride 110 mmol/L (98-107); Estimated GFR 26; Globulin 3.8 g/dL (2.4-3.5); Glucose 174 mg/dL (70-105); Potassium 5.9 mmol/L (3.5-5.1); Protein, Total 7.1 g/dL (6.0-8.3); Sodium 136 mmol/L (136-145)
[2022-06-22 20:23] LABS: Bilirubin Negative (Negative); Blood, Urine 1+ (Negative); Clarity Clear (Clear); Glucose, Urine (Dipstick) 300 mg/dL (Negative); Ketone, Urine Negative (Negative); Leukocyte Negative Leu/uL (Negative); Nitrite Negative (Negative); Protein, Urine (Dipstick) 300 mg/dL (Neg-Trace); RBC/HPF 0-3 HPF (0-3); Specific Gravity, Urine 1.017 (1.002-1.036); Squamous Epithelial 0-3 HPF (0-3); Urobilinogen Normal mg/dL (Less than 2); WBC/HPF 0-3 HPF (0-3)
[2022-06-22 20:24] LABS: Bacteria/HPF 1+ HPF (None Seen)
[2022-06-22 20:27] LABS: Amphetamine Not Detected (NotDetected); Barbiturates Screen Not Detected (NotDetected); Benzodiazepine Screen Not Detected (NotDetected); Cocaine Metabolite Screen Not Detected (NotDetected); Methadone Not Detected (NotDetected); Methamphetamine Not Detected (NotDetected); Opiate Screen Not Detected (NotDetected); Oxycodone Screen Not Detected (NotDetected); Phencyclidine (PCP) Not Detected (NotDetected); THC/Cannabinoid Screen Not Detected (NotDetected); Tricyclic Screen Not Detected (NotDetected)
[2022-06-22] MEDS ORDERED: Dextrose 50% Abboject 50 ML SYRINGE SLOW IVP SCH (23:10)
[2022-06-22] MEDS ORDERED: Insulin Regular 300 UNITS/3 ML VIAL IVP SCH (23:15)
[2022-06-22] MEDS ORDERED: Dextrose 5% in Water 1,000 ML IV PRN (23:17)
[2022-06-22] MEDS ORDERED: Dextrose 50% Abboject 50 ML SYRINGE SLOW IVP PRN (23:17)
[2022-06-23] MEDS ORDERED: Insulin Regular 300 UNITS/3 ML VIAL ONE (02:22)
[2022-06-23] MEDS ORDERED: Dextrose 50% Abboject 50 ML SYRINGE ONE (02:22)
[2022-06-23 06:15] LABS: Anion Gap 12 mmol/L (10-20); BUN (Urea Nitrogen) 55 mg/dL (8.9-20.6); Calc. Creatinine Clearance 48 mL/min (70-130); Calcium 7.9 mg/dL (7.8-10.44); Carbon Dioxide 16 mmol/L (22-29); Cardiac Risk 5.3 (Less than 4.5); Chloride 115 mmol/L (98-107); Cholesterol 195 mg/dl (< 200 Desired); Estimated GFR 30; Glucose 69 mg/dL (70-105); HDL Cholesterol 37 mg/dL (>60 Neg Risk); LDL Cholesterol, Calculated 146 mg/dL; Potassium 5.4 mmol/L (3.5-5.1); Sodium 138 mmol/L (136-145); Triglycerides 61 mg/dL (Less than 150)
[2022-06-23] MEDS: Insulin Glargine 30 UNITS/0.3 ML VIAL SC SCH ×2 (08:20→21:50)
[2022-06-23] MEDS ORDERED: Aspirin 81 mg Enteric Coated Tablet ONE (09:29)
[2022-06-23] MEDS ORDERED: Famotidine 20 MG TAB ONE (09:29)
[2022-06-23] MEDS ORDERED: Amlodipine 5 MG TAB ONE (09:29)
[2022-06-23] MEDS: Famotidine/PF 20 mg/2ml Vial SLOW IVP SCH (10:02)
[2022-06-23] MEDS: Amlodipine 10 MG TAB PO SCH (11:27)
[2022-06-23] MEDS: Aspirin 81 mg Enteric Coated Tablet PO SCH (11:28)
[2022-06-23] MEDS: Famotidine 20 MG TAB PO SCH (11:28)
[2022-06-23] MEDS: levETIRAcetam 500 MG TAB PO SCH ×2 (11:29→21:23)
[2022-06-23] MEDS: Sodium Bicarbonate Tab 325 MG TAB PO SCH ×3 (11:31→21:23)
[2022-06-23] MEDS: HumaLOG 300 UNITS/3 ML VIAL SC PRN ×2 (12:27→17:17)
[2022-06-23] MEDS ORDERED: Acetaminophen 325 MG TAB ONE (16:20)
[2022-06-23] MEDS: Acetaminophen 325 MG TAB PO PRN (16:25)
[2022-06-23 20:03] LABS: SARS-CoV-2 NAA Rapid Test Not Detected (NotDetected)
[2022-06-23] MEDS: Atorvastatin Calcium 40 MG TAB PO SCH (21:23)
[2022-06-24] MEDS ORDERED: Acetaminophen 325 MG TAB ONE (04:48)
[2022-06-24] MEDS: Acetaminophen 325 MG TAB PO PRN (04:51)
[2022-06-24] MEDS ORDERED: Ondansetron ODT 4 MG TAB ONE ×2 (04:53→04:54)
[2022-06-24] MEDS: Ondansetron ODT 4 MG TAB PO PRN (04:55)
[2022-06-24] MEDS: HumaLOG 300 UNITS/3 ML VIAL SC PRN (08:13)
[2022-06-24 10:50] LABS: Anion Gap 11 mmol/L (10-20); BUN (Urea Nitrogen) 54 mg/dL (8.9-20.6); Calc. Creatinine Clearance 41 mL/min (70-130); Carbon Dioxide 16 mmol/L (22-29); Chloride 114 mmol/L (98-107); Estimated GFR 24; Glucose 300 mg/dL (70-105); Sodium 135 mmol/L (136-145)
[2022-06-24 11:02] LABS: Potassium 6.1 mmol/L (3.5-5.1)
[2022-06-24] MEDS: Aspirin 81 mg Enteric Coated Tablet PO SCH (11:13)
[2022-06-24] MEDS: Famotidine 20 MG TAB PO SCH (11:13)
[2022-06-24] MEDS: Sodium Bicarbonate Tab 325 MG TAB PO SCH (11:14)
[2022-06-24] MEDS: levETIRAcetam 500 MG TAB PO SCH ×2 (11:14→20:49)
[2022-06-24] MEDS: Amlodipine 10 MG TAB PO SCH (11:15)
[2022-06-24] MEDS: Famotidine/PF 20 mg/2ml Vial SLOW IVP SCH (11:15)
[2022-06-24] MEDS: Insulin Glargine 30 UNITS/0.3 ML VIAL SC SCH ×2 (11:16→20:55)
[2022-06-24] MEDS ORDERED: LOKELMA 10 GM PACKET PO SCH ×2 (12:00→19:00)
[2022-06-24] MEDS: Dextrose 5% in Water 1,000 ML IV SCH ×2 (12:52→22:00)
[2022-06-24] MEDS ORDERED: CALCIUM GLUC 1 GM/NS 50 ML 1 GM in Premix Bag 1 BAG IVPB SCH (13:15)
[2022-06-24] MEDS ORDERED: Calcium Gluconate 4.6 MEQ in Sodium Chloride 0.9% 100 ML IVPB SCH (13:15)
[2022-06-24 13:56] LABS: Anion Gap 12 mmol/L (10-20); BUN (Urea Nitrogen) 57 mg/dL (8.9-20.6); Calc. Creatinine Clearance 43 mL/min (70-130); Calcium 7.8 mg/dL (7.8-10.44); Carbon Dioxide 16 mmol/L (22-29); Chloride 113 mmol/L (98-107); Estimated GFR 26; Glucose 275 mg/dL (70-105); Sodium 135 mmol/L (136-145)
[2022-06-24 14:03] LABS: Potassium 6.2 mmol/L (3.5-5.1)
[2022-06-24] MEDS ORDERED: Dextrose 50% Abboject 50 ML SYRINGE SLOW IVP SCH (14:17)
[2022-06-24] MEDS ORDERED: Insulin Regular 300 UNITS/3 ML VIAL IVP SCH (14:30)
[2022-06-24] MEDS: cefTRIAXone\\ROCEPHIN 2 GM in Sodium Chloride 0.9% 100 ML IVPB SCH (16:05)
[2022-06-24] MEDS ORDERED: HumaLOG 300 UNITS/3 ML VIAL SC PRN (16:15)
[2022-06-24] MEDS: traMADol HCl 50 MG TAB PO PRN (16:16)
[2022-06-24 17:35] LABS: Actual Bicarbonate (HCO3a) 15.5 mEq/L (22-28); Analyzer IN Cardio OR; Base Excess (BEa) -8.7 mEq/L (-2.0 to +3.0); CO2 Tension 27.5 mmHg (35.0-45.0); Calcium, Ionized (arterial) 1.15 mmol/L (1.12-1.30); Carboxyhemoglobin (COHb) 0.8 gm% (0.0-3.0); Hemoglobin (Hb) 8.6 g/dL (14.0-18.0); O2 Tension (PaO2), arterial 82.6 mmHg (80.0-100.0); Potassium - ABG Lab 5.99 mmol/L (3.70-5.30); pH, Arterial 7.37 (7.35-7.45)
[2022-06-24 17:44] LABS: ALV-art Gradient 32.755 mmHg (0-20); Puncture Site RRA
[2022-06-24 18:29] LABS: Anion Gap 11 mmol/L (10-20); BUN (Urea Nitrogen) 56 mg/dL (8.9-20.6); Calc. Creatinine Clearance 42 mL/min (70-130); Calcium 8.3 mg/dL (7.8-10.44); Carbon Dioxide 18 mmol/L (22-29); Chloride 115 mmol/L (98-107); Estimated GFR 25; Glucose 71 mg/dL (70-105); Sodium 138 mmol/L (136-145)
[2022-06-24 18:40] LABS: Potassium 6.4 mmol/L (3.5-5.1)
[2022-06-24] MEDS ORDERED: Sodium Bicarbonate 150 MEQ in Dextrose 5% in Water 1,000 ML IV ONE (19:00)
[2022-06-24] MEDS ORDERED: Sodium Chloride 0.9% 1,000 ML IV SCH (19:00)
[2022-06-24] MEDS: CALCIUM GLUC 1 GM/NS 50 ML 1 GM in Premix Bag 1 BAG IVPB SCH ×2 (19:39→20:38)
[2022-06-24] MEDS: Atorvastatin Calcium 40 MG TAB PO SCH (20:49)
[2022-06-24 23:29] LABS: Anion Gap 11 mmol/L (10-20); BUN (Urea Nitrogen) 59 mg/dL (8.9-20.6); Calc. Creatinine Clearance 42 mL/min (70-130); Calcium 8.3 mg/dL (7.8-10.44); Carbon Dioxide 18 mmol/L (22-29); Chloride 113 mmol/L (98-107); Estimated GFR 25; Glucose 146 mg/dL (70-105); Sodium 136 mmol/L (136-145)
[2022-06-24 23:32] LABS: Potassium 6.1 mmol/L (3.5-5.1)
[2022-06-25] MEDS: Sodium Bicarbonate 150 MEQ in Dextrose 5% in Water 1,000 ML IV SCH ×3 (00:25→16:51)
[2022-06-25] MEDS ORDERED: Furosemide 40 MG/4 ML VIAL SLOW IVP SCH (01:00)
[2022-06-25 06:25] LABS: Anion Gap 12 mmol/L (10-20); BUN (Urea Nitrogen) 56 mg/dL (8.9-20.6); Calc. Creatinine Clearance 42 mL/min (70-130); Calcium 8.3 mg/dL (7.8-10.44); Carbon Dioxide 21 mmol/L (22-29); Chloride 109 mmol/L (98-107); Estimated GFR 26; Glucose 177 mg/dL (70-105); Potassium 5.3 mmol/L (3.5-5.1); Sodium 137 mmol/L (136-145)
[2022-06-25] MEDS ORDERED: FLU VACC QS2022-23(6MOS UP)/PF 60 MCG/0.5 ML SYRINGE IM ONE (09:00)
[2022-06-25] MEDS: Aspirin 81 mg Enteric Coated Tablet PO SCH (10:19)
[2022-06-25] MEDS: levETIRAcetam 500 MG TAB PO SCH ×2 (10:19→21:31)
[2022-06-25] MEDS: Famotidine 20 MG TAB PO SCH (10:19)
[2022-06-25] MEDS: Insulin Glargine 30 UNITS/0.3 ML VIAL SC SCH ×2 (10:20→21:33)
[2022-06-25] MEDS: Amlodipine 10 MG TAB PO SCH (10:20)
[2022-06-25 13:22] VITALS: BMI 28.3
[2022-06-25 16:11] LABS: Anion Gap 10 mmol/L (10-20); BUN (Urea Nitrogen) 50 mg/dL (8.9-20.6); Calc. Creatinine Clearance 42 mL/min (70-130); Calcium 8.1 mg/dL (7.8-10.44); Carbon Dioxide 24 mmol/L (22-29); Chloride 106 mmol/L (98-107); Estimated GFR 25; Glucose 209 mg/dL (70-105); Potassium 5.5 mmol/L (3.5-5.1); Sodium 134 mmol/L (136-145)
[2022-06-25] MEDS ORDERED: Dextrose 50% Abboject 50 ML SYRINGE SLOW IVP PRN (16:14)
[2022-06-25] MEDS ORDERED: Calcium Gluc 4.6 MEQ/10 ML (100 MG/ML) SLOW IVP SCH (16:30)
[2022-06-25] MEDS ORDERED: Insulin Regular 300 UNITS/3 ML VIAL SC SCH (16:30)
[2022-06-25] MEDS ORDERED: LOKELMA 10 GM PACKET PO SCH ×2 (16:30→23:30)
[2022-06-25] MEDS: Dextrose 5% in Water 1,000 ML IV SCH ×2 (16:34→19:18)
[2022-06-25] MEDS: cefTRIAXone\\ROCEPHIN 2 GM in Sodium Chloride 0.9% 100 ML IVPB SCH (16:50)
[2022-06-25] MEDS ORDERED: Insulin Regular 300 UNITS/3 ML VIAL IVP SCH (17:00)
[2022-06-25] MEDS: traMADol HCl 50 MG TAB PO PRN (21:31)
[2022-06-25] MEDS: Atorvastatin Calcium 40 MG TAB PO SCH (21:31)
[2022-06-26] MEDS: Sodium Bicarbonate 150 MEQ in Dextrose 5% in Water 1,000 ML IV SCH ×4 (00:16→20:27)
[2022-06-26] MEDS: Dextrose 5% in Water 1,000 ML IV SCH ×2 (03:07→14:01)
[2022-06-26] MEDS ORDERED: cloNIDine 0.1 MG TAB PO SCH (04:00)
[2022-06-26] MEDS: traMADol HCl 50 MG TAB PO PRN ×2 (04:15→20:26)
[2022-06-26] MEDS: HumaLOG 300 UNITS/3 ML VIAL SC PRN ×2 (05:51→17:51)
[2022-06-26] MEDS: Famotidine 20 MG TAB PO SCH (08:52)
[2022-06-26] MEDS: Aspirin 81 mg Enteric Coated Tablet PO SCH (08:52)
[2022-06-26] MEDS: Amlodipine 10 MG TAB PO SCH (08:52)
[2022-06-26] MEDS: levETIRAcetam 500 MG TAB PO SCH ×2 (08:53→20:26)
[2022-06-26] MEDS: Insulin Glargine 30 UNITS/0.3 ML VIAL SC SCH (08:54)
[2022-06-26 09:09] LABS: #Eosinphils 0.1 thou/uL (0.0-0.7); #Lymphocytes 1.6 thou/uL (1.20-3.40); #Monocytes 0.5 thou/uL (0.11-0.59); #Neutrophils 2.4 thou/uL (1.40-6.50); %Basophils 0.5 % (0.0-1.0); %Lymphocytes 34.3 % (21.0-51.0); %Monocytes 9.8 % (0.0-10.0); %Neutrophils 52.4 % (42.0-75.0); Hemoglobin 7.9 g/dL (14.0-18.0); Mean Corpuscular HGB CONC 35.3 g/dL (32.0-36.0); Mean Corpuscular Hemoglobin 30.3 pg (27.0-31.0); Mean Corpuscular Volume 85.7 fl (78.0-98.0); Mean Platelet Volume 5.3 fL (7.4-10.4); Platelet Count 227 10x3/uL (130-400); RBC Distribution Width 12.5 % (11.5-14.5); Red Blood Cell (RBC) Count 2.61 mill/uL (4.70-6.10); White Blood Cell (WBC) Count 4.6 10x3/uL (4.8-10.8)
[2022-06-26 09:29] LABS: Anion Gap 11 mmol/L (10-20); BUN (Urea Nitrogen) 48 mg/dL (8.9-20.6); Calc. Creatinine Clearance 44 mL/min (70-130); Calcium 7.9 mg/dL (7.8-10.44); Carbon Dioxide 26 mmol/L (22-29); Chloride 105 mmol/L (98-107); Estimated GFR 26; Glucose 140 mg/dL (70-105); Sodium 137 mmol/L (136-145)
[2022-06-26] MEDS: Metoclopramide HCl 10 MG/2 ML VIAL IVP PRN ×2 (10:26→18:28)
[2022-06-26] MEDS: cefTRIAXone\\ROCEPHIN 2 GM in Sodium Chloride 0.9% 100 ML IVPB SCH (15:05)
[2022-06-26] MEDS: Atorvastatin Calcium 40 MG TAB PO SCH (20:26)
[2022-06-26] MEDS: Ondansetron PF 4 MG/2 ML Vial IVP PRN (20:28)
[2022-06-27] MEDS: Insulin Glargine 30 UNITS/0.3 ML VIAL SC SCH ×3 (04:47→21:31)
[2022-06-27] MEDS: Dextrose 5% in Water 1,000 ML IV SCH ×2 (05:19→11:29)
[2022-06-27] MEDS: Sodium Bicarbonate 150 MEQ in Dextrose 5% in Water 1,000 ML IV SCH ×2 (05:20→15:03)
[2022-06-27] MEDS: Aspirin 81 mg Enteric Coated Tablet PO SCH (09:11)
[2022-06-27] MEDS: levETIRAcetam 500 MG TAB PO SCH ×2 (09:11→21:29)
[2022-06-27] MEDS: Amlodipine 10 MG TAB PO SCH (09:12)
[2022-06-27 10:13] LABS: Anion Gap 11 mmol/L (10-20); BUN (Urea Nitrogen) 42 mg/dL (8.9-20.6); Calc. Creatinine Clearance 40 mL/min (70-130); Calcium 8.1 mg/dL (7.8-10.44); Carbon Dioxide 28 mmol/L (22-29); Chloride 103 mmol/L (98-107); Estimated GFR 24; Glucose 147 mg/dL (70-105); Potassium 4.9 mmol/L (3.5-5.1); Sodium 137 mmol/L (136-145)
[2022-06-27] MEDS: HumaLOG 300 UNITS/3 ML VIAL SC PRN ×2 (10:49→18:06)
[2022-06-27] MEDS: hydrALAZINE 20 MG/ML VIAL SLOW IVP PRN ×2 (10:49→15:27)
[2022-06-27] MEDS: Famotidine 20 MG TAB PO SCH (11:01)
[2022-06-27] MEDS: Ondansetron ODT 4 MG TAB PO PRN ×2 (11:04→17:06)
[2022-06-27] MEDS: Acetaminophen 325 MG TAB PO PRN (12:45)
[2022-06-27] MEDS: cefTRIAXone\\ROCEPHIN 2 GM in Sodium Chloride 0.9% 100 ML IVPB SCH (15:26)
[2022-06-27] MEDS: EPOETIN ALFA-EPBX (ESRD) 10,000 UNIT/ML VIAL SC SCH (15:43)
[2022-06-27] MEDS: traMADol HCl 50 MG TAB PO PRN (18:04)
[2022-06-27] MEDS: Atorvastatin Calcium 40 MG TAB PO SCH (21:29)
[2022-06-28] MEDS: traMADol HCl 50 MG TAB PO PRN ×2 (00:01→08:46)
[2022-06-28] MEDS: Ondansetron PF 4 MG/2 ML Vial IVP PRN (00:01)
[2022-06-28] MEDS: hydrALAZINE 20 MG/ML VIAL SLOW IVP PRN (01:22)
[2022-06-28] MEDS: Sodium Bicarbonate 150 MEQ in Dextrose 5% in Water 1,000 ML IV SCH ×5 (08:08→23:46)
[2022-06-28] MEDS: NIFEdipine XL 90 MG TAB PO SCH (08:45)
[2022-06-28] MEDS: levETIRAcetam 500 MG TAB PO SCH ×2 (08:45→20:55)
[2022-06-28] MEDS: Aspirin 81 mg Enteric Coated Tablet PO SCH (08:45)
[2022-06-28] MEDS: Famotidine 20 MG TAB PO SCH (08:46)
[2022-06-28] MEDS: hydrALAZINE 25 MG TAB PO SCH ×2 (08:46→20:55)
[2022-06-28] MEDS: Ondansetron ODT 4 MG TAB PO PRN (08:47)
[2022-06-28] MEDS: Insulin Glargine 30 UNITS/0.3 ML VIAL SC SCH ×2 (08:48→20:55)
[2022-06-28] MEDS ORDERED: Doxazosin 2 MG TAB PO SCH (09:00)
[2022-06-28 09:14] LABS: #Eosinphils 0.3 thou/uL (0.0-0.7); #Lymphocytes 1.3 thou/uL (1.20-3.40); #Monocytes 0.5 thou/uL (0.11-0.59); #Neutrophils 4.9 thou/uL (1.40-6.50); %Basophils 0.5 % (0.0-1.0); %Eosinophils 3.9 % (0.0-10.0); %Lymphocytes 18.9 % (21.0-51.0); %Monocytes 6.9 % (0.0-10.0); %Neutrophils 69.9 % (42.0-75.0); Hemoglobin 9.3 g/dL (14.0-18.0); Mean Corpuscular HGB CONC 34.5 g/dL (32.0-36.0); Mean Corpuscular Hemoglobin 29.8 pg (27.0-31.0); Mean Corpuscular Volume 86.4 fl (78.0-98.0); Mean Platelet Volume 5.9 fL (7.4-10.4); Platelet Count 280 10x3/uL (130-400); RBC Distribution Width 12.8 % (11.5-14.5); Red Blood Cell (RBC) Count 3.11 mill/uL (4.70-6.10)
[2022-06-28 09:37] LABS: ALT (SGPT) 10 U/L (8-55); AST (SGOT) 15 U/L (5-34); Albumin 3.2 g/dL (3.5-5.0); Alkaline Phosphatase 130 U/L (40-110); Anion Gap 13 mmol/L (10-20); BUN (Urea Nitrogen) 44 mg/dL (8.9-20.6); Bilirubin, Direct 0.2 mg/dL (0.1-0.3); Bilirubin, Total 0.7 mg/dL (0.2-1.2); Calc. Creatinine Clearance 35 mL/min (70-130); Calcium 8.1 mg/dL (7.8-10.44); Carbon Dioxide 28 mmol/L (22-29); Chloride 103 mmol/L (98-107); Estimated GFR 20; Glucose 150 mg/dL (70-105); Iron 92 ug/dL (65-175); Lipase 18 U/L (8-78); Potassium 5.6 mmol/L (3.5-5.1); Protein, Total 6.7 g/dL (6.0-8.3); Sodium 138 mmol/L (136-145)
[2022-06-28 10:00] LABS: Ferritin 58.85 ng/mL (22-322)
[2022-06-28] MEDS ORDERED: Lactated Ringer's 1,000 ML IV SCH (10:30)
[2022-06-28] MEDS ORDERED: Gabapentin 300 MG CAP PO SCH ×2 (13:22→21:00)
[2022-06-28] MEDS ORDERED: chlorproMAZINE HCl 50 MG/2 ML AMP SLOW IVP ONE (13:41)
[2022-06-28] MEDS ORDERED: chlorproMAZINE HCl 25 MG in Sodium Chloride 0.9% 50 ML IVPB SCH (14:00)
[2022-06-28] MEDS ORDERED: Furosemide 20 MG/2 ML VIAL SLOW IVP SCH (15:00)
[2022-06-28 15:18] LABS: Anion Gap 14 mmol/L (10-20); BUN (Urea Nitrogen) 44 mg/dL (8.9-20.6); Calc. Creatinine Clearance 35 mL/min (70-130); Calcium 7.7 mg/dL (7.8-10.44); Carbon Dioxide 28 mmol/L (22-29); Chloride 101 mmol/L (98-107); Estimated GFR 21; Glucose 238 mg/dL (70-105); Potassium 5.7 mmol/L (3.5-5.1); Sodium 137 mmol/L (136-145)
[2022-06-28] MEDS: cefTRIAXone\\ROCEPHIN 2 GM in Sodium Chloride 0.9% 100 ML IVPB SCH (15:28)
[2022-06-28 18:32] LABS: Actual Bicarbonate (HCO3a) 31.7 mEq/L (22-28); Carboxyhemoglobin (COHb) 0.6 gm% (0.0-3.0); Hemoglobin (Hb) 8.5 g/dL (14.0-18.0); O2 Tension (PaO2), arterial 72.6 mmHg (80.0-100.0); Potassium - ABG Lab 4.84 mmol/L (3.70-5.30); pH, Arterial 7.46 (7.35-7.45)
[2022-06-28 18:42] LABS: Puncture Site LRA
[2022-06-28] MEDS ORDERED: chlorproMAZINE HCl 25 MG in Sodium Chloride 0.9% 50 ML IVPB PRN (19:14)
[2022-06-28] MEDS ORDERED: HumaLOG 300 UNITS/3 ML VIAL SC SCH (19:15)
[2022-06-28] MEDS: Pantoprazole 40 MG VIAL IVP SCH (20:54)
[2022-06-28] MEDS: Atorvastatin Calcium 40 MG TAB PO SCH (20:55)
[2022-06-29 05:24] LABS: #Eosinphils 0.2 thou/uL (0.0-0.7); #Lymphocytes 1.7 thou/uL (1.20-3.40); #Monocytes 0.4 thou/uL (0.11-0.59); #Neutrophils 2.5 thou/uL (1.40-6.50); %Basophils 0.7 % (0.0-1.0); %Eosinophils 3.8 % (0.0-10.0); %Lymphocytes 35.6 % (21.0-51.0); %Monocytes 8.6 % (0.0-10.0); %Neutrophils 51.5 % (42.0-75.0); Hemoglobin 8.1 g/dL (14.0-18.0); Mean Corpuscular HGB CONC 33.7 g/dL (32.0-36.0); Mean Corpuscular Hemoglobin 29.2 pg (27.0-31.0); Mean Corpuscular Volume 86.4 fl (78.0-98.0); Mean Platelet Volume 5.6 fL (7.4-10.4); Platelet Count 172 10x3/uL (130-400); RBC Distribution Width 12.6 % (11.5-14.5); Red Blood Cell (RBC) Count 2.77 mill/uL (4.70-6.10); White Blood Cell (WBC) Count 4.9 10x3/uL (4.8-10.8)
[2022-06-29 05:43] LABS: Anion Gap 11 mmol/L (10-20); BUN (Urea Nitrogen) 40 mg/dL (8.9-20.6); Calc. Creatinine Clearance 36 mL/min (70-130); Calcium 7.7 mg/dL (7.8-10.44); Carbon Dioxide 33 mmol/L (22-29); Chloride 99 mmol/L (98-107); Estimated GFR 21; Glucose 144 mg/dL (70-105); Magnesium 1.2 mg/dL (1.6-2.6); Potassium 4.4 mmol/L (3.5-5.1); Sodium 139 mmol/L (136-145)
[2022-06-29] MEDS ORDERED: Lorazepam 2 MG/ML VIAL SLOW IVP SCH (08:00)
[2022-06-29] MEDS: Aspirin 81 mg Enteric Coated Tablet PO SCH (08:31)
[2022-06-29] MEDS: levETIRAcetam 500 MG TAB PO SCH ×2 (08:31→20:01)
[2022-06-29] MEDS: hydrALAZINE 25 MG TAB PO SCH ×2 (08:31→20:01)
[2022-06-29] MEDS: NIFEdipine XL 90 MG TAB PO SCH (08:31)
[2022-06-29] MEDS: Famotidine 20 MG TAB PO SCH (08:31)
[2022-06-29] MEDS: Insulin Glargine 30 UNITS/0.3 ML VIAL SC SCH ×2 (08:32→20:01)
[2022-06-29] MEDS: Pantoprazole 40 MG VIAL IVP SCH ×2 (08:32→20:01)
[2022-06-29] MEDS: Sodium Bicarbonate 150 MEQ in Dextrose 5% in Water 1,000 ML IV SCH (08:34)
[2022-06-29] MEDS: cefTRIAXone\\ROCEPHIN 2 GM in Sodium Chloride 0.9% 100 ML IVPB SCH (15:49)
[2022-06-29] MEDS: Atorvastatin Calcium 40 MG TAB PO SCH (20:00)
[2022-06-29] MEDS: traMADol HCl 50 MG TAB PO PRN (22:26)
[2022-06-29] MEDS: Senokot S 8.6-50 MG TAB PO PRN (22:26)
[2022-06-30] MEDS: Acetaminophen 325 MG TAB PO PRN (05:39)
[2022-06-30] MEDS: hydrALAZINE 25 MG TAB PO SCH ×2 (09:23→20:23)
[2022-06-30] MEDS: Pantoprazole 40 MG VIAL IVP SCH ×2 (09:23→20:24)
[2022-06-30] MEDS: levETIRAcetam 500 MG TAB PO SCH ×2 (09:23→20:23)
[2022-06-30] MEDS: Famotidine 20 MG TAB PO SCH (09:24)
[2022-06-30] MEDS: NIFEdipine XL 90 MG TAB PO SCH (09:24)
[2022-06-30] MEDS: Aspirin 81 mg Enteric Coated Tablet PO SCH (09:24)
[2022-06-30] MEDS: Insulin Glargine 30 UNITS/0.3 ML VIAL SC SCH ×2 (09:33→20:24)
[2022-06-30] MEDS: cefTRIAXone\\ROCEPHIN 2 GM in Sodium Chloride 0.9% 100 ML IVPB SCH (16:29)
[2022-06-30] MEDS: Atorvastatin Calcium 40 MG TAB PO SCH (20:24)
[2022-06-30] MEDS: traMADol HCl 50 MG TAB PO PRN (20:24)
[2022-07-01] MEDS: Ondansetron PF 4 MG/2 ML Vial IVP PRN (04:55)
[2022-07-01] MEDS ORDERED: Morphine 2 MG/ML VIAL SLOW IVP SCH (05:00)
[2022-07-01 05:51] LABS: Anion Gap 16 mmol/L (10-20); BUN (Urea Nitrogen) 39 mg/dL (8.9-20.6); Calc. Creatinine Clearance 35 mL/min (70-130); Calcium 8.1 mg/dL (7.8-10.44); Carbon Dioxide 23 mmol/L (22-29); Chloride 105 mmol/L (98-107); Estimated GFR 20; Glucose 81 mg/dL (70-105); Potassium 5.5 mmol/L (3.5-5.1); Sodium 138 mmol/L (136-145)
[2022-07-01] MEDS: levETIRAcetam 500 MG TAB PO SCH ×2 (08:27→20:54)
[2022-07-01] MEDS: NIFEdipine XL 90 MG TAB PO SCH (08:28)
[2022-07-01] MEDS: hydrALAZINE 25 MG TAB PO SCH ×2 (08:29→20:54)
[2022-07-01] MEDS: Famotidine 20 MG TAB PO SCH (08:29)
[2022-07-01] MEDS: Aspirin 81 mg Enteric Coated Tablet PO SCH (08:29)
[2022-07-01] MEDS: Pantoprazole 40 MG VIAL IVP SCH ×2 (08:29→20:57)
[2022-07-01] MEDS: Insulin Glargine 30 UNITS/0.3 ML VIAL SC SCH ×2 (08:30→20:54)
[2022-07-01] MEDS ORDERED: levETIRAcetam 500 MG TAB PO SCH ×2 (13:30→21:00)
[2022-07-01] MEDS ORDERED: Gabapentin 100 MG CAP PO SCH (13:30)
[2022-07-01] MEDS: traMADol HCl 50 MG TAB PO PRN ×3 (13:33→22:06)
[2022-07-01 16:25] LABS: Anion Gap 14 mmol/L (10-20); BUN (Urea Nitrogen) 39 mg/dL (8.9-20.6); Calc. Creatinine Clearance 34 mL/min (70-130); Carbon Dioxide 23 mmol/L (22-29); Chloride 104 mmol/L (98-107); Estimated GFR 19; Glucose 79 mg/dL (70-105); Potassium 5.8 mmol/L (3.5-5.1); Sodium 135 mmol/L (136-145)
[2022-07-01] MEDS: Atorvastatin Calcium 40 MG TAB PO SCH (20:55)
[2022-07-01] MEDS: Acetaminophen 325 MG TAB PO PRN (20:55)
[2022-07-02] MEDS ORDERED: Fioricet 325/50/40 mg Tablet PO SCH (00:45)
[2022-07-02] MEDS: hydrALAZINE 20 MG/ML VIAL SLOW IVP PRN (01:16)
[2022-07-02] MEDS: traMADol HCl 50 MG TAB PO PRN ×2 (03:56→15:34)
[2022-07-02] MEDS: Acetaminophen 325 MG TAB PO PRN ×2 (07:00→20:17)
[2022-07-02] MEDS: Insulin Glargine 30 UNITS/0.3 ML VIAL SC SCH ×2 (07:19→20:19)
[2022-07-02] MEDS: Aspirin 81 mg Enteric Coated Tablet PO SCH (08:23)
[2022-07-02] MEDS: Famotidine 20 MG TAB PO SCH (08:23)
[2022-07-02] MEDS: Gabapentin 100 MG CAP PO SCH (08:23)
[2022-07-02] MEDS: hydrALAZINE 25 MG TAB PO SCH ×2 (08:23→20:18)
[2022-07-02] MEDS: Pantoprazole 40 MG VIAL IVP SCH ×2 (08:24→20:17)
[2022-07-02] MEDS: levETIRAcetam 500 MG TAB PO SCH ×2 (08:24→20:18)
[2022-07-02] MEDS: NIFEdipine XL 90 MG TAB PO SCH (08:24)
[2022-07-02 09:27] LABS: Anion Gap 13 mmol/L (10-20); BUN (Urea Nitrogen) 39 mg/dL (8.9-20.6); Calc. Creatinine Clearance 33 mL/min (70-130); Calcium 8.4 mg/dL (7.8-10.44); Carbon Dioxide 22 mmol/L (22-29); Chloride 106 mmol/L (98-107); Estimated GFR 19; Glucose 164 mg/dL (70-105); Potassium 5.1 mmol/L (3.5-5.1); Sodium 136 mmol/L (136-145)
[2022-07-02] MEDS: HumaLOG 300 UNITS/3 ML VIAL SC PRN (12:10)
[2022-07-02] MEDS ORDERED: Fioricet 325/50/40 mg Tablet PO PRN (17:28)
[2022-07-02] MEDS: Atorvastatin Calcium 40 MG TAB PO SCH (20:18)
[2022-07-02] MEDS: Senokot S 8.6-50 MG TAB PO PRN (20:19)
[2022-07-02] MEDS: Ondansetron ODT 4 MG TAB PO PRN (20:23)
[2022-07-02] MEDS: Heparin 5,000 UNITS/ML VIAL SC SCH (20:26)
[2022-07-03 06:06] LABS: Anion Gap 14 mmol/L (10-20); BUN (Urea Nitrogen) 41 mg/dL (8.9-20.6); Calc. Creatinine Clearance 34 mL/min (70-130); Calcium 8.2 mg/dL (7.8-10.44); Carbon Dioxide 21 mmol/L (22-29); Chloride 105 mmol/L (98-107); Estimated GFR 20; Glucose 112 mg/dL (70-105); Potassium 5.1 mmol/L (3.5-5.1); Sodium 135 mmol/L (136-145)
[2022-07-03] MEDS: NIFEdipine XL 90 MG TAB PO SCH (09:23)
[2022-07-03] MEDS: levETIRAcetam 500 MG TAB PO SCH ×2 (09:23→21:01)
[2022-07-03] MEDS: Gabapentin 100 MG CAP PO SCH (09:23)
[2022-07-03] MEDS: Insulin Glargine 30 UNITS/0.3 ML VIAL SC SCH ×3 (09:23→21:03)
[2022-07-03] MEDS: Famotidine 20 MG TAB PO SCH (09:23)
[2022-07-03] MEDS: Pantoprazole 40 MG VIAL IVP SCH ×2 (09:23→21:02)
[2022-07-03] MEDS: Aspirin 81 mg Enteric Coated Tablet PO SCH (09:24)
[2022-07-03] MEDS: hydrALAZINE 25 MG TAB PO SCH ×2 (09:24→21:02)
[2022-07-03] MEDS: HumaLOG 300 UNITS/3 ML VIAL SC PRN (11:26)
[2022-07-03] MEDS: traMADol HCl 50 MG TAB PO PRN (14:31)
[2022-07-03] MEDS: Acetaminophen 325 MG TAB PO PRN (21:01)
[2022-07-03] MEDS: Atorvastatin Calcium 40 MG TAB PO SCH (21:02)
[2022-07-03] MEDS: Heparin 5,000 UNITS/ML VIAL SC SCH (21:03)
[2022-07-04 07:16] LABS: Anion Gap 13 mmol/L (10-20); BUN (Urea Nitrogen) 48 mg/dL (8.9-20.6); Calc. Creatinine Clearance 32 mL/min (70-130); Calcium 8.5 mg/dL (7.8-10.44); Carbon Dioxide 21 mmol/L (22-29); Chloride 107 mmol/L (98-107); Estimated GFR 18; Glucose 84 mg/dL (70-105); Potassium 4.8 mmol/L (3.5-5.1); Sodium 136 mmol/L (136-145)
[2022-07-04] MEDS: levETIRAcetam 500 MG TAB PO SCH (08:42)
[2022-07-04] MEDS: NIFEdipine XL 90 MG TAB PO SCH (08:43)
[2022-07-04] MEDS: Famotidine 20 MG TAB PO SCH (08:44)
[2022-07-04] MEDS: Gabapentin 100 MG CAP PO SCH (08:44)
[2022-07-04] MEDS: Aspirin 81 mg Enteric Coated Tablet PO SCH (08:45)
[2022-07-04] MEDS: hydrALAZINE 25 MG TAB PO SCH (08:45)
[2022-07-04] MEDS: Pantoprazole 40 MG VIAL IVP SCH (08:46)
[2022-07-04] MEDS: traMADol HCl 50 MG TAB PO PRN (08:51)
[2022-07-04] MEDS ORDERED: Insulin Glargine 30 UNITS/0.3 ML VIAL SC SCH (09:00)
[2022-07-04] MEDS ORDERED: Morphine 10 MG/0.5 ML ORAL SYRINGE PO PRN (12:53)
[2022-07-04] MEDS: EPOETIN ALFA-EPBX (ESRD) 10,000 UNIT/ML VIAL SC SCH (14:15)
[2022-07-04 16:11] VITALS: BP 138/84; TEMP 98.1
== END 2022-07-04 19:21 | DRG 64 ==
LOC: ERS 18:24 → ERHOLD 21:39 → NEURO 06-24 10:05 → OBSVTOIN 06-25 10:11
PROVIDERS: ADMIT Student in an Organized Health Care Education/Training Program; ATTEND Internal Medicine
DX: I63.89 Other cerebral infarction (principal); G93.41 Metabolic encephalopathy; N17.9 Acute kidney failure, unspecified; N18.4 Chronic kidney disease, stage 4 (severe); R78.81 Bacteremia; G81.91 Hemiplegia, unspecified affecting right dominant side; G40.909 Epilepsy, unspecified, not intractable, without status epilepticus; E87.5 Hyperkalemia; I12.9 Hypertensive chronic kidney disease with stage 1 through stage 4 chronic kidney disease, or unspecified chronic kidney disease; E11.22 Type 2 diabetes mellitus with diabetic chronic kidney disease; B19.20 Unspecified viral hepatitis C without hepatic coma; D63.1 Anemia in chronic kidney disease; E11.43 Type 2 diabetes mellitus with diabetic autonomic (poly)neuropathy; K31.84 Gastroparesis; E11.65 Type 2 diabetes mellitus with hyperglycemia; B95.5 Unspecified streptococcus as the cause of diseases classified elsewhere; Z20.822 Contact with and (suspected) exposure to COVID-19; Z90.49 Acquired absence of other specified parts of digestive tract; Z79.899 Other long term (current) drug therapy; Z79.4 Long term (current) use of insulin; Z98.890 Other specified postprocedural states
CPT/HCPCS: 36415; 36416; 36600; 70450; 70551; 74176; 76705; 80048; 80053; 80061; 80076; 80306; 81003; 81015; 82274; 82607; 82728; 82805; 83540; 83605; 83690; 83735; 84443; 84484; 85025; 85610; 85730; 86140; 87040; 87077; 87149; 87186; 87811; 93005; 93010; 93306; 93880; 95816; 95819; 95957; 96374; 96375; 96376; C9113; G0378; J0360; J0610; J0611; J0696; J1611; J1644; J1650; J1815; J1940; J1953; J2060; J2272; J2405; J2765; J3230; J3490; J7070; J7999; Q0162; Q5105; U0002